=== PATIENT | female | born 1970 | race Caucasian/White ===

== ENCOUNTER 2017-04-30 09:14 | Emergency (ER) | payer BC, SELFPAY | END 2017-04-30 10:46 | disposition home or self-care (01) | PROVIDERS: Emergency Provider Nurse Practitioner; Family Provider Nurse Practitioner Family; Visit Provider Nurse Practitioner | DX: J10.1 Influenza due to other identified influenza virus with other respiratory manifestations (principal); J45.909 Unspecified asthma, uncomplicated; F17.210 Nicotine dependence, cigarettes, uncomplicated | CPT/HCPCS: 87804; 99201 ==

== ENCOUNTER → 2017-12-20 16:52 | Outpatient (CLI) | payer BC, SELFPAY ==
--- NOTE | 2017-12-20 16:55 | MM_ITS ---
MM Dig screening mamm BI w/CAD ORDERING PHYSICIAN : Monique Iraheta PATIENT AGE: 47 years GENDER: Female COMPARISON: Bilateral mammogram from April 2014, April 2015, right mammogram November 2015. Bilateral mammogram there are 2017 INDICATION: ITS.REASON: screening bilateral screening mammogram. No hormones. No new complaints. Previous benign excisional biopsy right breast. Family history noncontributory. Unremarkable. TECHNIQUE: Standard CC and MLO images were obtained. R2 CAD reviewed. FINDINGS: Minimal fibroglandular elements with relatively low breast bilaterally. No suspicious or dominant mass. No suspicious calcifications in either breast. RIGHT BREAST:Right breast appears stable no new areas of concern bilateral follow-up in one year LEFT BREAST:Minimal areas of density on the cc view at Central breast were present on 2017 and 2013 mammogram study. Reasonably Stable with no significant interval change.. These densities seem to dissipate on MLO viewAs well . Bilateral follow-up in not over one year recommended. IMPRESSION: No significant interval change. Bilateral follow-up in one year recommended BI-RADS Category: 2 Benign Finding(s) RECOMMENDED FOLLOW-UP: 1YR 1 YEAR FOLLOW-UP (A letter has been sent to the patient regarding results of the study.) .
== END ==
PROVIDERS: Family Provider Nurse Practitioner Family; PCP Nurse Practitioner Family; Visit Provider Nurse Practitioner Family
DX: Z12.31 Encounter for screening mammogram for malignant neoplasm of breast (principal)
CPT/HCPCS: 77067

== ENCOUNTER → 2018-08-01 15:00 | Outpatient (CLI) | payer BC, SELFPAY ==
--- NOTE | 2018-08-01 15:04 | US_ITS ---
US breast RT complete INDICATION: Lump under the right arm ORDERING PHYSICIAN: Alana Galindo PATIENT AGE: 47 years COMPARISON: None TECHNIQUE: Ultrasound is performed of the right axilla and breast FINDINGS: No sonographic abnormalities of the breast. There are few lymph nodes in the right axilla measuring up to 3 cm. No cyst apparent. IMPRESSION: Mildly prominent axillary lymph nodes. CT may be of further value for better quantification BI-RADS Category: 3 Probably Benign Finding Short Term Follow-up Suggest follow-up as clinically warranted. CT may be of further value for adenopathy for better quantification (A letter has been sent to the patient regarding results of the study.)
== END ==
PROVIDERS: PCP Nurse Practitioner Family; Visit Provider Nurse Practitioner Family
DX: R22.31 Localized swelling, mass and lump, right upper limb (principal)
CPT/HCPCS: 76641

== ENCOUNTER → 2018-08-08 13:20 | Outpatient (CLI) | payer BC, SELFPAY ==
[2018-08-08 13:46] LABS: Alanine Aminotransferase 37 U/L (12-78); Albumin Level 3.7 gm/dL (3.4-5.0); Albumin/Globulin Ratio 1.2 (1.1-1.8); Alkaline Phosphatase 58 U/L (46-116); Anion Gap 18.4 mEq/L (5-15); Aspartate Amino Transferase 13 U/L (15-37); Bilirubin,Total 0.7 mg/dL (0.2-1.0); Blood Urea Nitrogen 16 mg/dL (7-18); Calcium 8.5 mg/dL (8.5-10.1); Carbon Dioxide 19 mmol/L (21.0-32.0); Chloride 109 mmol/L (98-107); Creatinine,Serum 0.78 mg/dL (0.55-1.02); Estimated Glomerular Filt Rate 79 ml/min (>60); Free T4 (Free Thyroxine) 1.06 ng/dl (0.76-1.46); GFR (African American) 95 ML/MIN (>60); Globulin 3.2 gm/dl (1.3-3.2); Potassium 4.4 mmoL/L (3.5-5.1); Sodium 142 mmol/L (136-145); Thyroid Stimulating Hormone 1.74 uIU/ml (0.358-3.740); Total Protein,Serum 6.9 gm/dL (6.4-8.2)
[2018-08-08 13:52] LABS: Glucose 108 mg/dL (74-106)
[2018-08-08 14:18] LABS: Basophils % 0.5 % (0.1-2.0); Eosinophils # 0.2 K/mm3 (0.0-0.4); Eosinophils % 2.1 % (0.1-12.0); Hematocrit 42.1 % (37.0-47.0); Hemoglobin 14.1 g/dL (12.2-16.2); Lymphocytes # 2.2 K/mm3 (0.7-4.5); Lymphocytes % 28.1 % (10-50); Mean Corpuscular HGB Conc 33.5 g/dL (31.8-35.4); Mean Corpuscular Hemoglobin 29.1 pg (27.0-31.2); Mean Platelet Volume 8.7 fl (7.4-10.4); Monocytes # 0.3 K/mm3 (0.1-1.0); Monocytes % 4.3 % (1.7-9.3); Platelet Count 272 K/mm3 (142-424); Red Blood Count 4.85 M/mm3 (4.20-5.40); Red Cell Distribution Width 13.9 % (11.5-17.5); White Blood Count 7.8 K/mm3 (4.8-10.8)
[2018-08-08 14:51] LABS: Erythrocyte Sedimentation Rate 18 mm/hr (0-20)
[2018-08-12 15:11] LABS: 1,25-Dihydroxy, Vitamin D-2 <10 pg/mL (.)
[2018-08-13 14:26] LABS: 1,25 Dihydroxy Vitamin D 21 pg/mL (.); 1,25-Dihydroxy, Vitamin D-3 21 pg/mL (.)
== END ==
PROVIDERS: Visit Provider Nurse Practitioner Family
DX: R53.83 Other fatigue (principal)
CPT/HCPCS: 80053; 82652; 84439; 84443; 85025; 85651

== ENCOUNTER → 2018-08-30 10:16 | Outpatient (CLI) | payer BC, SELFPAY ==
[2018-08-30 12:12] LABS: Chol/HDL Ratio 4.8 (1-3.5); Cholesterol 163 mg/dL (140-200); HDL Cholesterol 34 mg/dL (29-89); LDL Cholesterol 108 mg/dL (0-130); Triglycerides 106 mg/dL (30-200); VLDL Cholesterol 21 mg/dL (0-40)
[2018-08-30 12:38] LABS: Hemoglobin A1C 5.8 % (0.0-7.0)
== END ==
PROVIDERS: Visit Provider Nurse Practitioner Family
DX: R73.09 Other abnormal glucose (principal)
CPT/HCPCS: 36415; 80061; 83036

== ENCOUNTER → 2018-09-11 15:26 | Outpatient (CLI) | payer BC, SELFPAY ==
--- NOTE | 2018-09-11 15:41 | CT_ITS ---
CT chest wo con HISTORY: Enlarged lymph nodes. Axillary adenopathy noted on ultrasound ITS.REASON: recommended on breast u/s results ORDERING PHYSICIAN: Alana Galindo APRN PATIENT AGE: 47 years COMPARISON: None Technique: Axial images obtained. Sagittal, and coronal reformatted images are also generated and reviewed. All CT scans at the facility use one or more dose reduction, viz: automated exposure control, ma/kV adjustment per patient size (including targeted exams where dose is matched to indication, i.e. head), or iterative reconstruction technique. FINDINGS: There is been prior right thyroidectomy. Small amount of the mid and the axillary region on both sides. Previously noted enlarged nodes of the right axilla are no longer apparent. There are few small nodes within the mediastinum there is mild stranding of the anterior mediastinal fat nonspecific and could be related to some residual thymic tissue. There is minimal thickening of the pericardium anteriorly and inferiorly. Normal heart size. No coronary artery calcifications are apparent. There are few small mediastinal and hilar lymph nodes some of which contain calcium. Calcified granuloma is present in the left upper lobe. No suspicious pulmonary nodules. No lobar consolidation or collapse. No central obstructing lesion. Upper abdominal images show a 1.7 cm left adrenal nodule isodense which may be related to an adenoma. IMPRESSION: 1. No acute finding. 2. Scattered small nodes in the axillae and mediastinum. No enlarged lymph nodes are evident. 3. Probable left adrenal adenoma. 4. Mild thickening of the pericardium suggesting trace pericardial effusion
== END ==
PROVIDERS: PCP Nurse Practitioner Family; Visit Provider Nurse Practitioner Family
DX: R59.0 Localized enlarged lymph nodes (principal)
CPT/HCPCS: 71250

== ENCOUNTER → 2018-10-13 09:46 | Outpatient (CLI) | payer BC, SELFPAY ==
--- NOTE | 2018-10-13 09:48 | CT_ITS ---
CT abdomen wo/w con CLINICAL INDICATION: Adrenal nodule on the left, indeterminate left adrenal nodule, possible adenoma ITS.REASON: adrenal adenoma seen on CT ORDERING PHYSICIAN: Alana Galindo APRN PATIENT AGE: 48 years COMPARISON: None TECHNIQUE: Axial images obtained without and with contrast with sagittal and coronal reformats. All CT scans at the facility use one or more dose reduction, viz: automated exposure control, ma/kV adjustment per patient size (including targeted exams where dose is matched to indication, i.e. head), or iterative reconstruction technique. PROCEDURE: Oral Contrast: None IV Contrast: 75 mL's Optiray 350. FINDINGS: EXAM is performed with adrenal protocol without and with contrast and with delayed imaging for the washout images. FINDINGS: In the lung bases there is some minimal subpleural nodularity in the right lower lobe not readily apparent on the previous exam and nonspecific. Mild thickening of the pericardium There is a 15 mm left adrenal nodule. Unenhanced density is approximately -2 Hounsfield units. Immediate post enhanced density is 33 Hounsfield units. 15 minute delayed washout density is 3 Hounsfield units.. These findings are consistent with an adenoma pattern.. The liver, spleen, right adrenal gland, kidneys, and pancreas have an unremarkable appearance. IMPRESSION: 15-mm left adrenal nodule with enhancement characteristics consistent with an adenoma.
== END ==
PROVIDERS: PCP Nurse Practitioner Family; Visit Provider Nurse Practitioner Family
DX: D35.00 Benign neoplasm of unspecified adrenal gland (principal)
CPT/HCPCS: 74170; Q9967

== ENCOUNTER → 2019-02-04 16:50 | Outpatient (CLI) | payer BC, SELFPAY | PROVIDERS: Visit Provider Physician Assistant | DX: N39.0 Urinary tract infection, site not specified (principal) | CPT/HCPCS: 87086 ==

== ENCOUNTER → 2019-06-01 17:16 | Outpatient (CLI) | payer BC, SELFPAY ==
--- NOTE | 2019-06-01 17:32 | XR_ITS ---
PROCEDURE: XR LUMBAR SPINE MIN 4V CLINICAL INDICATION: back pain COMPARISON: No exams were available for comparison FINDINGS: No fracture or dislocation. No lytic or blastic change. Mild degenerative disc disease from L1-S1. There is slight decrease in the disc spaces with small anterior osteophytes at L1-L3 L4 and L5. IMPRESSION: Mild degenerative changes, no acute finding. Dictated by: Juan Manuel Murillo MD 06/01/2019 19:00 Electronically signed by Juan Manuel Murillo MD in [place] 06/01/2019 19:00
== END ==
PROVIDERS: PCP Nurse Practitioner Family; Visit Provider Specialist
DX: M54.9 Dorsalgia, unspecified (principal); R25.1 Tremor, unspecified
CPT/HCPCS: 72110

== ENCOUNTER → 2019-06-02 16:31 | Outpatient (CLI) | payer BC, SELFPAY ==
[2019-06-02 20:23] LABS: Free T4 (Free Thyroxine) 1.13 ng/dl (0.76-1.46)
== END ==
PROVIDERS: Visit Provider Otolaryngology
DX: E03.9 Hypothyroidism, unspecified (principal)
CPT/HCPCS: 36415; 84439; 84443

== ENCOUNTER → 2019-06-30 12:49 | Outpatient (CLI) | payer BC, SELFPAY ==
--- NOTE | 2019-06-30 12:49 | US_ITS ---
PROCEDURE: US EXTREMITY RT LIMITED CLINICAL INDICATION: rt axillary swollen lymphnode COMPARISON: BREASTRT US breast RT complete from 08/01/2018 FINDINGS: Survey is performed of the right axilla demonstrating at least 3 lymph nodes the largest at approximately 3 cm. The cortex is not thickened measuring up to 3 mm. No abnormal fluid collections. Palpable area the right axilla corresponds to adipose tissue. IMPRESSION: Small nodes are once again noted in the right axilla not significantly changed from 08/01/2018. Dictated by: Juan Manuel Murillo MD 06/30/2019 18:07 Electronically signed by Juan Manuel Murillo MD in [facility] 06/30/2019 18:07
--- NOTE | 2019-06-30 12:49 | US_ITS ---
PROCEDURE: US BIOPSY GUIDANCE CLINICAL INDICATION: Rt axillary painful/swollen lymph node COMPARISON: US EXTREMITY RT LIMITED from 06/30/2019 TECHNIQUE: Pre biopsy ultrasound demonstrated a few small nodes in the axilla. At least 1 node measured up to 4 x 3 cm. This however was very deep in the axilla. This was the target for the FNA Following obtaining informed consent, using aseptic technique and local anesthesia with buffered lidocaine, fine-needle aspiration was performed of the nodule of interest using sonographic guidance. One passes were made into the nodule with a 21-gauge needle. This needle did not appear to be long enough therefore, a 20 gauge spinal needle was utilized for 2 additional passes into the area of suspected lymph node. The patient tolerated the procedure well without evidence of immediate complication. Specimen was put in cytology and RPMI. Specimen was given to cytology. FINDINGS: CYTOLOGY: Negative for malignancy. Negative for lymph node tissue. IMPRESSION: Uneventful ultrasound-guided FNA of the right axilla. Negative for malignancy. What was felt to be a a small lymph node with fatty hilum was targeted for the FNA however, no lymph node tissue was seen on the FNA. This was the area of patient's reported pain and tenderness. The patient tolerated the procedure well without evidence of immediate complications and left the ultrasound suite in stable condition. Dictated by: Juan Manuel Murillo MD 07/04/2019 08:22 Electronically signed by Juan Manuel Murillo MD in [facility] 07/04/2019 08:22
== END ==
PROVIDERS: PCP Nurse Practitioner Family; Visit Provider Surgery
DX: R59.9 Enlarged lymph nodes, unspecified (principal); M79.621 Pain in right upper arm; M79.89 Other specified soft tissue disorders
CPT/HCPCS: 10005; 76882; 76942

== ENCOUNTER 2019-07-14 17:00 | Outpatient (RCR) | payer BC, SELFPAY ==
--- NOTE | 2019-06-08 18:13 | HMH.PTOPEV ---
PT Outpatient Evaluation Rehab PT Outpatient Evaluation Start: 06/08/19 17:03 Freq: Status: Active Protocol: Document 06/08/19 17:03 NATEMORALES (Rec: 06/08/19 18:13 NIKITAMIESHA [id number]) Electronically Signed By Perry Ricci, PROSPER 06/08/19 17:03 Outpatient Therapy Subjective History Subjective History This is the initial Physical Therapy evaluation for Kallie Barroso. Pt is a 48 y/o female referred to PT for c/o LBP and RLE pain and paresthesia. Pt reports she has had chronic LBP since 1990 when she was in the . Pt reports she fell backwards and bruised L3-L4 . Pt reprots she has had chronic intermittant back pain since then. Pt rpeorts this bout began ~ Feb 2019 w/ insidious onset. Pt reports pain has been steadily increasing since Feb, with worsening pain in RLE. Pt reprots pain and burning into lateral R knee, and tingling and numbness in R lateral toes . Chief Complaint Pain,Paresthesia Symptom Type Ache,Throb,Sharp,Dull,Stabbing ,Burning,Numbness,Tingling, Shooting Symptoms Relieved By Rest/Positioning,Heat,Ice,OTC Meds,Prescription Meds Symptoms Aggravated By Sitting,Standing,Bending/ Stooping,Physical Activity, Twisting,Walking Prior Functional Limitations None Current Functional Limitations Lifting,Housework,Driving, Sleeping,Standing,Sitting, Recreation Activity,Walking, Bending/Stooping Symptom Description Constant but Variable Level of pain today (0-10) 5 Pain scale - at its best (0-10) 8 Pain scale - at its worst (0-10) 3 Lumbopelvic Eval Palapation tenderness right lumbar spinal tenderness Yes paraspinal tenderness Yes Lumbar/Sacral Palpation Findings Tenderness,Muscle Guarding Accessory Movement L3 right L4 right L5 right S1 right Range of Motion Lumbar Spine Active Flexion Range of 60 w/ pain Motion (degrees) Lumba
== END 2019-07-14 18:00 | disposition home or self-care (01) ==
LOC: PT 17:00
PROVIDERS: PCP Nurse Practitioner Family; Visit Provider Specialist
DX: M54.41 Lumbago with sciatica, right side (principal)
CPT/HCPCS: 97010; 97014; 97110; 97163; G0283

== ENCOUNTER 2020-02-22 18:27 | Emergency (ER) | payer BC, SELFPAY ==
[2020-02-22 18:42] VITALS: BP 125/89; PULSE 76; RESP 16; TEMP 37.2; O2SAT 98; BMI 42.7
--- NOTE | 2020-02-22 19:02 | HMH.EDUTC ---
[facility] Disposition Clinical Impression: Acute bronchitis Qualifiers: Bronchitis organism: unspecified organism Qualified Code(s): J20.9 - Acute bronchitis, unspecified Pharyngitis Qualifiers: Pharyngitis/tonsillitis etiology: unspecified etiology Qualified Code(s): J02.9 - Acute pharyngitis, unspecified Disposition: Home, Self-Care Condition on Discharge: Good Instructions: DI for Acute Bronchitis Additional Instructions: Drink plenty of fluids. Take tylenol or ibuprofen for pain or fever. Take the medications as directed. Follow up with your regular doctor. GO TO THE ER FOR ANY WORSENING SYMPTOMS FOLLOW THE DIRECTIONS ON THE COVID-19 HAND OUT THAT WE GAVE YOU REGARDING SELF-ISOLATION UNTIL YOU KNOW YOUR COVID-19 RESULTS Prescriptions: Benzonatate [Tessalon Perle 100mg Cap] 100 mg PO TIDP PRN #30 cap PRN Reason: Cough Transmission Status: Received by [facility] Azithromycin [Z-Yobani 250mg Tab*] 250 mg PO UD DOSE PK #6 tab Transmission Status: Received by [facility] Referrals: Gasper Pierre [Primary Care Provider] - Forms: Work/School Release Time of Disposition: 19:25 Medical Decision Making - Medical Records Medical records reviewed: No: I reviewed the patient's medical records. - Galileo Inquiry Pt receiving controlled substance: No Vital Signs: 02/22/20 18:42 02/22/20 19:36 Temperature 98.9 F 98.9 F Temperature Source Oral Oral Pulse Rate 76 Pulse Rate [Radial] 76 Respiratory Rate 16 16 Blood Pressure 125/89 Blood Pressure [Right Arm] 125/89 Blood Pressure Mean [Right Arm] 101 Blood Pressure Source Automatic Cuff Blood Pressure Source [Right Arm] Automatic Cuff Blood Pressure Position Sitting Blood Pressure Position [Right Arm] Sitting 02 Sat by Pulse Oximetry 98 Oxygen Delivery Method Room Air Room Air - Lab Data Lab results reviewed: Yes: I reviewed the patient's lab results. Lab Results 02/22/20 19:06: Strep Scn Rapid Clinic Negative Orders (Tests/Meds): ORDERS Category Date Time Status Covid-19 Nasal PCR Sendout Samuel Routine Lab 02/22/20 18:46 Received Strep Screen Confirmation Stat Micro 02/22/20 19:06 Received [facility] HPI - General Stated complaint: sore throat,Cough,pain all over Time Seen by Provider: 02/22/20 19:02 Mode of Arrival: Ambulatory Source of Information: Patient Limitations: No Limitations Description of Symptoms (Recalled from Triage Doc. by RN): SORE THROAT, COUGH, BODY ACHES HEENT Symptoms (Recalled from RN notes): Yes Resp Symptoms (Recalled from RN notes): No Skin Symptoms (Recalled from RN notes): No MS Symptoms (Recalled from RN notes): No Functional Status (Recalled from RN notes): WNL - History of Present Illness Provider Complaint: She c/o sore throat and bilateral ear pain for the past 2 days. She denies any known exposure to covid. But, she works at the [employer] in [place], [place]. - Related Data Home Medications Medication Instructions Recorded Confirmed levothyroxine 125 mcg tablet 125 mcg PO DAILY 90 Days #90 08/05/17 02/19/20 aspirin 81 mg chewable tablet 81 mg PO DAILY 01/30/18 02/19/20 Topiramate 250 mg PO QHS 05/22/19 02/19/20 metformin 1,000 mg tablet 1,000 mg PO BID 12/18/19 02/19/20 tramadol 50 mg tablet 50 mg PO DAILY 12/18/19 02/19/20 Previous Rx's Medication Instructions Recorded tizanidine 2 mg capsule 4 mg PO QHS #60 cap 09/17/19 escitalopram oxalate 20 mg tablet 20 mg PO DAILY #90 tab 02/19/20 hydroxyzine pamoate 25 mg capsule 25 mg PO TID PRN #180 cap 02/19/20 Azithromycin [Z-Yobani 250mg Tab*] 250 mg PO UD DOSE PK #6 tab 02/22/20 Benzonatate [Tessalon Perle 100mg 100 mg PO TIDP PRN #30 cap 02/22/20 Cap] Allergies Allergy/AdvReac Type Severity Reaction Status Date / Time codeine Allergy Intermediate I-ITCHING Verified 09/10/19 14:08 oxycodone [From Percocet] Allergy Intermediate I-ITCHING Verified 09/10/19 14:08 propoxyphene Allergy
[2020-02-22 19:17] LABS: UTC Strep Screen (Rapid) Negative (Negative)
[2020-02-22 19:36] VITALS: BP 125/89; PULSE 76; RESP 16; TEMP 37.2; O2SAT 98
== END 2020-02-22 19:37 | disposition home or self-care (01) ==
PROVIDERS: Emergency Provider Nurse Practitioner Family; PCP Family Medicine
DX: J20.9 Acute bronchitis, unspecified (principal); J02.9 Acute pharyngitis, unspecified; Z20.828 Contact with and (suspected) exposure to other viral communicable diseases; E11.9 Type 2 diabetes mellitus without complications; Z79.84 Long term (current) use of oral hypoglycemic drugs; F41.9 Anxiety disorder, unspecified; G43.709 Chronic migraine without aura, not intractable, without status migrainosus; Z87.891 Personal history of nicotine dependence; Z79.899 Other long term (current) drug therapy
CPT/HCPCS: 87880; 99202; U0003; U0004

== ENCOUNTER → 2020-06-13 14:08 | Outpatient (CLI) | payer BC, SELFPAY ==
[2020-06-13 18:37] LABS: Vitamin B12 225 pg/mL (239-931)
[2020-06-22 19:25] LABS: 1,25 Dihydroxy Vitamin D 20 pg/mL (.); 1,25-Dihydroxy, Vitamin D-2 <10 pg/mL (.); 1,25-Dihydroxy, Vitamin D-3 20 pg/mL (.)
== END ==
PROVIDERS: Visit Provider Nurse Practitioner Psychiatric/Mental Health
DX: E53.8 Deficiency of other specified B group vitamins (principal); Z68.41 Body mass index [BMI] 40.0-44.9, adult
CPT/HCPCS: 36415; 82607; 82652

== ENCOUNTER 2020-06-27 09:33 | Emergency (ER) | payer BC, SELFPAY ==
[2020-06-27 09:50] VITALS: BP 130/79; PULSE 87; RESP 14; TEMP 37.3; O2SAT 99; BMI 41.8
--- NOTE | 2020-06-27 10:24 | HMH.EDUTC ---
[facility] Dis[place] Clinical Impression: Otitis media Qualifiers: Otitis media type: suppurative Chronicity: acute Laterality: bilateral Recurrence: non-recurrent Spontaneous tympanic membrane rupture: without spontaneous rupture Qualified Code(s): H66.003 - Acute suppurative otitis media without spontaneous rupture of ear drum, bilateral Pharyngitis Qualifiers: Pharyngitis/tonsillitis etiology: unspecified etiology Qualified Code(s): J02.9 - Acute pharyngitis, unspecified Disposition: Home, Self-Care Condition on Discharge: Good Instructions: Vertigo, Middle Ear Infection, Preventing the Spread of Coronavirus Discharge Instructions Additional Instructions: Drink plenty of fluids. Take tylenol for pain or fever. Return if you begin to have difficulty breathing. Follow up with your regular doctor. GO TO THE ER FOR ANY WORSENING SYMPTOMS Prescriptions: predniSONE [Prednisone 20mg Tab] 20 mg PO BID 4 Days #8 tab Transmission Status: Received by [facility] Azithromycin [Z-Yobani 250mg Tab*] 250 mg PO UD DOSE PK #6 tab Transmission Status: Received by [facility] Referrals: Gasper Pierre [Primary Care Provider] - Forms: Work/School Release Time of Disposition: 10:33 Medical Decision Making - Medical Records Medical records reviewed: No: I reviewed the patient's medical records. - Galileo Inquiry Pt receiving controlled substance: No Vital Signs: 06/27/20 09:50 06/27/20 10:35 Temperature 99.2 F 99.2 F Temperature Source Oral Pulse Rate 87 Pulse Rate [Right Brachial] 87 Respiratory Rate 14 14 Blood Pressure 130/79 Blood Pressure [Right Arm] 130/79 Blood Pressure Mean [Right Arm] 96 Blood Pressure Source [Right Arm] Automatic Cuff Blood Pressure Position [Right Arm] Sitting 02 Sat by Pulse Oximetry 99 Oxygen Delivery Method Room Air Orders (Tests/Meds): ORDERS Category Date Time Status Covid-19 Nasal PCR ([facility]) Routine Lab 06/27/20 10:30 Received [facility] HPI - General Stated complaint: dizzy,sore throat,headache Time Seen by Provider: 06/27/20 10:24 Mode of Arrival: Ambulatory Source of Information: Patient Limitations: No Limitations Description of Symptoms (Recalled from Triage Doc. by RN): PATEINT C/O DIZZINESS, SORE THROAT, HEADACHE, AND EAR PAIN HEENT Symptoms (Recalled from RN notes): Yes Resp Symptoms (Recalled from RN notes): No Skin Symptoms (Recalled from RN notes): No MS Symptoms (Recalled from RN notes): No Functional Status (Recalled from RN notes): WNL - History of Present Illness Provider Complaint: She c/o 1 day of bilateral ear pain and dizziness. She has had a head ache. She denies any known exposure to Covid-19. - Related Data Home Medications Medication Instructions Recorded Confirmed levothyroxine 125 mcg tablet 125 mcg PO DAILY 90 Days #90 08/05/17 02/19/20 aspirin 81 mg chewable tablet 81 mg PO DAILY 01/30/18 02/19/20 Topiramate 250 mg PO QHS 05/22/19 02/19/20 metformin 1,000 mg tablet 1,000 mg PO BID 12/18/19 02/19/20 tramadol 50 mg tablet 50 mg PO DAILY 12/18/19 02/19/20 Previous Rx's Medication Instructions Recorded tizanidine 2 mg capsule 4 mg PO QHS #60 cap 09/17/19 Azithromycin [Z-Yobani 250mg Tab*] 250 mg PO UD DOSE PK #6 tab 02/22/20 Benzonatate [Tessalon Perle 100mg 100 mg PO TIDP PRN #30 cap 02/22/20 Cap] buspirone 10 mg tablet 10 mg PO BID #60 tab 06/13/20 escitalopram oxalate 20 mg tablet 20 mg PO DAILY #90 tab 06/13/20 hydroxyzine pamoate 25 mg capsule 25 mg PO TID PRN #180 cap 06/13/20 Azithromycin [Z-Yobani 250mg Tab*] 250 mg PO UD DOSE PK #6 tab 06/27/20 predniSONE [Prednisone 20mg 20 mg PO BID 4 Days #8 tab 06/27/20 Tab] Allergies Allergy/AdvReac Type Severity Reaction Status Date / Time codeine Allergy Intermediate I-ITCHING Verified 06/13/20 13:42 oxycodone [From Percocet] Allergy Intermediate I-ITCHING Verified 06/13/20 13:42 propoxyphene Allergy Intermediate I-ITCHI
[2020-06-27 10:35] VITALS: BP 130/79; PULSE 87; RESP 14; TEMP 37.3; O2SAT 99
== END 2020-06-27 10:41 | disposition home or self-care (01) ==
PROVIDERS: Emergency Provider Nurse Practitioner Family; PCP Family Medicine
DX: H66.003 Acute suppurative otitis media without spontaneous rupture of ear drum, bilateral (principal); J02.9 Acute pharyngitis, unspecified; F41.9 Anxiety disorder, unspecified; G43.709 Chronic migraine without aura, not intractable, without status migrainosus; Z87.891 Personal history of nicotine dependence; Z88.5 Allergy status to narcotic agent; Z79.899 Other long term (current) drug therapy
CPT/HCPCS: 99202; G0463; U0003

== ENCOUNTER → 2020-09-02 17:41 | Outpatient (CLI) | payer BC, SELFPAY ==
[2020-09-02 19:07] LABS: Coronavirus 19 IgG Antibody Negative (Negative); Coronavirus 19 IgM Antibody Negative (Negative)
== END ==
PROVIDERS: Visit Provider Internal Medicine Gastroenterology
DX: Z01.812 Encounter for preprocedural laboratory examination (principal); Z11.52 Encounter for screening for COVID-19; Z12.11 Encounter for screening for malignant neoplasm of colon
CPT/HCPCS: 36415; 86328

== ENCOUNTER 2020-09-05 09:41 | Day surgery (SDC) | payer BC, SELFPAY ==
[2020-09-01 14:00] VITALS: BMI 42.1
[2020-09-05] VITALS (7 sets, daily range): BP systolic 113–140; BP diastolic 65–105; PULSE 60–78; RESP 18; TEMP 36.3–37; O2SAT 94–100
[2020-09-05 10:11] LABS: POC Glucose,Bedside 104 (70-110)
--- NOTE | 2020-09-05 11:03 | P.PCN_ITS ---
[facility] Procedure Note Procedure Note:: Colonoscopy Procedure Report: Colonoscopy with cold snare polypectomy and hemorrhoid band ligation Endoscopist: Bebo Bradley II, MD Referring physician: Gasper Pierre MD Date of Procedure: September 05, 2020 Equipment: Olympus 190 variable stiffness pediatric colonoscope Sedation: MAC sedation Indication: Mrs. Barroso is a 49-year-old female who is here for diagnostic colonoscopy secondary to rectal bleeding that has become frequent over the last couple of months. This occurs with every bowel movement and is blood going into the commode. She also has anorectal pain/tearing sensation. She was told that she had some hemorrhoidal tags by her rental sales agent. She has chronic right upper quadrant abdominal pain since her cholecystectomy 12 to 15 years ago. The patient did have a colonoscopy 7 to 8 years ago (Dr. Mark Dubose in [place]) which was normal. She was placed on Linzess for her pain but this resulted in diarrhea. Her clerk checker stopped this. The patient reports no bloating or gassiness. She has had no change in bowel habits or weight loss. She does report regular bowel function. She reports no family history of colon cancer. Procedure: Prior to the procedure, a history and physical exam was performed, and patient's medications and allergies were reviewed. The risks, benefits and alternatives of the sedation and procedure were discussed with the patient. All questions were answered and informed consent was obtained. The patient was brought to the procedure room. Patient identification and proposed procedure were verified by the physician and the nurse. The patient was placed in a left lateral decubitus position and the scope was passed under direct vision. Throughout the procedure, the patient's blood pressure, pulse, and oxygen saturations were monitored continuously. The colonoscopy was accomplished without difficulty. The patient tolerated the procedure well. Findings: On digital rectal examination there was normal to increased anorectal sphincter tone. There were no external hemorrhoids. There was an anterior midline anal fissure with an associated skin tag. The anal rectal sphincter was dilated manually. The colonoscope was introduced through the anal canal to the rectum and advanced to the cecum. The ileocecal valve and appendiceal orifice were identified. The scope was advanced a short distance into the ileum which appeared grossly normal. The scope was then withdrawn into the colon. The cecum, ascending, transverse, descending and sigmoid colon were grossly normal. There was a diminutive 4 mm polyp in the rectum removed via cold snare polypectomy. There were no mucosal abnormalities identified. Upon retroflexion within the rectum there were grade 2 internal hemorrhoids. 3 columns of hemorrhoids were banded using 3 bands with excellent ligation effect. The preparation was excellent throughout with [place] Preparation Score of 9. The cecal time was 12 minutes. Impression: 1. Diminutive rectal polyp (4 mm) 2. Grade 2 internal hemorrhoids status post band ligation x3 3. Anterior midline anal fissure with associated skin tag Plan: I would encourage a fiber bowel regimen (MiraLAX plus Konsyl) on a long-term daily maintenance basis. 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 I will follow up the polyp histology and recommend repeat surveillance colonoscopy in 7 to 10 years based upon the pathology.
--- NOTE | 2020-09-05 17:10 | HMH.ANESCL ---
[facility] Anesthesia Checklist - Patient Identification Patient Identification: Arm Band - Structural Data Admitted From: Home Planned Operative Procedure/s: Colonoscopy Consent for Planned Operative Procedure(s) Verified: Yes Verified Documents: Surgical Consent, History and Physical - NPO Status Verified Time NPO: 00:00 - Airway Assessment C-Spine Mobility Assessed: Yes TMJ Mobility Assessed: Yes Dentition: Good Dentition - Neurological Assessment Level of Consciousness: Awake, Alert - Anesthesia Plan Anesthesia Risk discussed: Yes Anesthesia Plan: Verified ASA Class: III Anesthesia Type: MAC [facility] History Medical History: Reports:: Anxiety, Diabetes Mellitus Type 2, Migraine Denies:: Cancer, Diabetes Mellitus Type 1, Internal Pacemaker, MRSA, Seizures *Have you ever received a pneumonia vaccine?: No *Have you received a flu vaccine this season?: Yes Other Medical History: Reports: Thyroid Disease, Other Anesthesia experience/problems:: None Laterality Cases: Right: Arthroscopy Knee, Bilateral: Tonsillectomy, Other Other Surgeries: Yes: Cholecystectomy, Colonoscopy, Hysterectomy-Partial, Sinus Surgery, Thyroidectomy, Tubal Ligation. No: Pacemaker Amputation: No Fractures: Yes (ANKLE) - *Social History Last grade of school completed: High school graduate Smoking Status: Former smoker # Packs/Day (cigarettes): 1 #Yrs smoked (if former smoker): 20 Alcohol Intake: current Alcohol Intake Frequency:: a few times a month Substance Use Type: denies use *Occupational Status:: employed Housing: house Household Members: spouse *Travel in the last 8 weeks: None - Psychiatric History Pschychiatric History:: Reports:: Anxiety Family Hx:: Cancer, Hypertension, Coronary Artery Disease
== END 2020-09-05 12:21 | disposition home or self-care (01) ==
LOC: OUTP 09:44
PROVIDERS: PCP Family Medicine; Visit Provider Internal Medicine Gastroenterology
PROC: 0DJD8ZZ Inspection of Lower Intestinal Tract, Via Natural or Artificial Opening Endoscopic (ICD-10-PCS; CPT 45378; principal; 2020-09-05 11:00)
DX: K62.1 Rectal polyp; K64.1 Second degree hemorrhoids; K64.4 Residual hemorrhoidal skin tags; K60.2 Anal fissure, unspecified; F41.9 Anxiety disorder, unspecified; E11.9 Type 2 diabetes mellitus without complications; G43.909 Migraine, unspecified, not intractable, without status migrainosus; E07.9 Disorder of thyroid, unspecified
CPT/HCPCS: 45385; 45398; 82962

== ENCOUNTER 2020-10-31 17:22 | Emergency (ER) | payer BC, SELFPAY ==
[2020-10-31 18:47] VITALS: BP 131/80; PULSE 81; RESP 18; TEMP 36.8; O2SAT 93; BMI 42.0
--- NOTE | 2020-10-31 18:52 | XR_ITS ---
PROCEDURE INFORMATION: Exam: XR Chest Exam date and time: 10/31/2020 6:52 PM Age: 50 years old Clinical indication: Shortness of breath; Patient HX: Soa---. Former smoker, quit 3 yr ago; Additional info: Pleuritic pain TECHNIQUE: Imaging protocol: XR of the chest. Views: 2 views. Total images: 2 COMPARISON: CR XR CHEST 2V 08/06/2019 9:29 AM FINDINGS: Lungs: Granulomatous calcifications in the left upper lobe and AP window again noted. Normal pulmonary expansion. Pulmonary vasculature grossly normal. No gross pulmonary infiltrates. Pleural spaces: No pleural effusion. No pneumothorax. Heart/Mediastinum: Heart size normal. No tracheal/mediastinal shift. Vasculature: Mild aortic ectasia/tortuosity. Bones/joints: No acute osseous abnormalities are identified. IMPRESSION: No acute thoracic process. No significant change from 08/06/2019.
--- NOTE | 2020-10-31 19:00 | HMH.EDUTC ---
[facility] [place] Impression: Acute bronchitis Qualifiers: Bronchitis organism: unspecified organism Qualified Code(s): J20.9 - Acute bronchitis, unspecified Disposition: Home, Self-Care Condition on Discharge: Good Instructions: DI for Acute Bronchitis Additional Instructions: Drink plenty of fluids. Take tylenol or ibuprofen for pain or fever. Take the medications as directed. Follow up with your regular doctor. GO TO THE ER FOR ANY WORSENING SYMPTOMS Don't start the oral steroids until tomorrow, since you had the shot here today. The cough medication (promethazine dm) will make you drowsy, so don't drive or operate heavy machinery after taking it. Prescriptions: Promethazine/Dextromethorphan [Promethazine-Dm Syrup] 5 ml PO Q6HP PRN #240 syrup PRN Reason: Cough Transmission Status: Received by [facility] methylPREDNISolone [Medrol] 4 mg PO DIRECTED 6 Days #21 tab.ds.pk Transmission Status: Received by [facility] Cefdinir [Omnicef 300mg Capsule] 300 mg PO BID #20 cap Transmission Status: Received by [facility] Referrals: Gasper Pierre [Primary Care Provider] - Forms: Work/School Release Time of Disposition: 19:54 Medical Decision Making - Medical Records Medical records reviewed: No: I reviewed the patient's medical records. - Galileo Inquiry Pt receiving controlled substance: No Vital Signs: 10/31/20 18:47 10/31/20 19:30 10/31/20 20:36 Temperature 98.2 F 98 F Temperature Source Oral Pulse Rate 78 79 Pulse Rate [Right Brachial] 81 Respiratory Rate 18 18 Blood Pressure 127/78 Blood Pressure [Right Arm] 131/80 Blood Pressure Mean [Right Arm] 97 Blood Pressure Source [Right Arm] Automatic Cuff 02 Sat by Pulse Oximetry 93 L Oxygen Delivery Method Room Air Orders (Tests/Meds): ED MEDICATIONS Discontinued Medications Generic Name Dose Route Start Last Admin Trade Name Freq PRN Reason Stop Dose Admin Albuterol/Ipratropium 1 puff 10/31/20 18:52 10/31/20 19:25 Combivent 20mcg/100mcg Respimat Inhaler IH 10/31/20 18:53 1 puff ONCE ONE Administration Albuterol/Ipratropium 3 ml 10/31/20 18:52 10/31/20 19:25 Ipratropium/Albuterol 3 Ml Neb IH 10/31/20 18:53 3 ml ONCE ONE Administration Ceftriaxone Sodium 1 gm 10/31/20 20:08 10/31/20 20:36 Ceftriaxone 1gm Vial IM 10/31/20 20:09 1 gm ONCE ONE Administration Protocol Lidocaine HCl 0 ml 10/31/20 20:08 10/31/20 20:17 Lidocaine 1% 5ml Pf Vial IM 10/31/20 20:09 2.5 ml ONCE ONE Administration Methylprednisolone Sodium Succinate 125 mg 10/31/20 20:08 10/31/20 20:17 Methylprednisolone Sod Succ 125mg Vial IM 10/31/20 20:09 125 mg ONCE ONE Administration Miscellaneous 1 unit 10/31/20 18:52 10/31/20 19:24 Aerochamber/Optihaler MC 10/31/20 18:53 1 unit ONCE ONE Administration - Radiology Data #1 Image(s): Chest Image Reviewed: Yes I reviewed the patient's radiology image, Yes I have reviewed radiologist's interpretation Preliminary Findings: No Infiltrates Seen PROCEDURE INFORMATION: Exam: XR Chest Exam date and time: 10/31/2020 6:52 PM Age: 50 years old Clinical indication: Shortness of breath; Patient HX: Soa---. Former smoker, quit 3 yr ago; Additional info: Pleuritic pain TECHNIQUE: Imaging protocol: XR of the chest. Views: 2 views. Total images: 2 COMPARISON: CR XR CHEST 2V 08/06/2019 9:29 AM FINDINGS: Lungs: Granulomatous calcifications in the left upper lobe and AP window again noted. Normal pulmonary expansion. Pulmonary vasculature grossly normal. No gross pulmonary infiltrates. Pleural spaces: No pleural effusion. No pneumothorax. Heart/Mediastinum: Heart size normal. No tracheal/mediastinal shift. Vasculature: Mild aortic ectasia/tortuosity. Bones/joints: No acute osseous abnormalities are identified. IMPRESSION: No acute thora
[2020-10-31 19:30] VITALS: PULSE 69; PULSE 78
[2020-10-31 20:36] VITALS: BP 127/78; PULSE 79; RESP 18; TEMP 36.6
== END 2020-10-31 20:36 | disposition home or self-care (01) ==
PROVIDERS: Emergency Provider Nurse Practitioner Family; PCP Family Medicine
DX: J20.9 Acute bronchitis, unspecified (principal); E11.9 Type 2 diabetes mellitus without complications; E78.5 Hyperlipidemia, unspecified; Z87.891 Personal history of nicotine dependence; Z79.899 Other long term (current) drug therapy
CPT/HCPCS: 71046; 96372; 99202; G0463

== ENCOUNTER 2021-01-14 18:13 | Emergency (ER) | payer BC, SELFPAY ==
[2021-01-14 18:15] VITALS: BP 96/71; PULSE 75; RESP 18; TEMP 36.8; O2SAT 98; BMI 45.9
--- NOTE | 2021-01-14 18:28 | CT_ITS ---
PROCEDURE INFORMATION: Exam: CT Cervical Spine Without Contrast Exam date and time: 01/14/2021 6:28 PM Age: 50 years old Clinical indication: Injury or trauma; Fall; Blunt trauma; Injury date: 01/14/2021; Injury details: Fell and hit back of head neck pain and headache now TECHNIQUE: Imaging protocol: Computed tomography images of the cervical spine without contrast. Radiation optimization: All CT scans at this facility use at least one of these dose optimization techniques: automated exposure control; mA and/or kV adjustment per patient size (includes targeted exams where dose is matched to clinical indication); or iterative reconstruction. COMPARISON: CT HEAD/BRAIN WO CON 01/14/2021 6:39 PM FINDINGS: Bones/joints: No acute fracture. Normal alignment. Discs/Spinal canal/Neural foramina: No significant disc protrusion. No severe spinal canal stenosis. No significant neural foraminal narrowing. Lungs: Lung apices are normal. Soft tissues: Unremarkable. IMPRESSION: No acute findings.
--- NOTE | 2021-01-14 18:28 | CT_ITS ---
PROCEDURE INFORMATION: Exam: CT Head Without Contrast Exam date and time: 01/14/2021 6:28 PM Age: 50 years old Clinical indication: Injury or trauma; Fall; Blunt trauma (contusions or hematomas); Without loss of consciousness; Injury date: 01/14/2021; Injury details: Fell and hit back of head TECHNIQUE: Imaging protocol: Computed tomography of the head without contrast. Radiation optimization: All CT scans at this facility use at least one of these dose optimization techniques: automated exposure control; mA and/or kV adjustment per patient size (includes targeted exams where dose is matched to clinical indication); or iterative reconstruction. COMPARISON: BRW/O MRI-BRAIN W/O 01/10/2017 1:55 PM FINDINGS: Brain: Normal. No hemorrhage. Unremarkable white matter. No mass effect. Cerebral ventricles: No ventriculomegaly. Paranasal sinuses: Visualized sinuses are unremarkable. No fluid levels. Mastoid air cells: Visualized mastoid air cells are well aerated. Bones/joints: Unremarkable. No acute fracture. Soft tissues: Unremarkable. IMPRESSION: No acute intracranial abnormality.
--- NOTE | 2021-01-14 18:35 | HMH.EDGENADL ---
ED Disposition Clinical Impression: Closed head injury Qualifiers: Encounter type: initial encounter Qualified Code(s): S09.90XA - Unspecified injury of head, initial encounter Disposition: Home, Self-Care Condition on Discharge: Good Prescriptions: Ondansetron [Zofran 4mg ODT] 2 mg PO Q6 PRN #9 tab PRN Reason: Nausea Transmission Status: Pending to [facility] Referrals: Gasper Pierre [Primary Care Provider] - - Critical Care Critical Care Time: No Attestation: On 01/14/21, the high probability of a clinically significant, sudden or life threatening deterioration of the following system(s) required my full and direct attention, intervention and personal management. The time I documented below is in addition to time spent performing reported procedures but includes the following listed in this critical care notation. Medical Decision Making - Medical Records Medical records reviewed: Yes: I reviewed the patient's medical records. - Galileo Inquiry Pt receiving controlled substance: No Vital Signs: 01/14/21 18:15 Temperature 98.2 F Temperature Source Oral Pulse Rate [Left Radial] 75 Respiratory Rate 18 Blood Pressure [Right Arm] 96/71 L Blood Pressure Mean [Right Arm] 79 Blood Pressure Source [Right Arm] Automatic Cuff Blood Pressure Position [Right Arm] Sitting 02 Sat by Pulse Oximetry 98 Oxygen Delivery Method Room Air Orders (Tests/Meds): ED MEDICATIONS Discontinued Medications Generic Name Dose Route Start Last Admin Trade Name Freq PRN Reason Stop Dose Admin Acetaminophen 1,000 mg 01/14/21 18:34 01/14/21 19:06 Acetaminophen 500mg Tab PO 01/14/21 18:35 1,000 mg ONCE ONE Administration Ketorolac Tromethamine 30 mg 01/14/21 18:34 01/14/21 19:06 Ketorolac 30mg/Ml Vial IM 01/14/21 18:35 30 mg ONCE ONE Administration Prochlorperazine Edisylate 10 mg 01/14/21 18:34 01/14/21 19:06 Prochlorperazine 10mg/2ml Vial IM 01/14/21 18:35 10 mg ONCE ONE Administration Medical Decision Narrative: Patient is a 50-year-old female fell today and hit the top of her head. Patient is well-appearing on initial evaluation, appears to have a headache, sunglasses on room is dark. No hematoma or laceration to the top of the head, although given the apparent severity of the impact will obtain a CT head, CT cervical spine. Patient does not take blood thinners, states she did not pass out, is relatively low risk for intracranial bleeding. After CT will administer 1000 mg of oral Tylenol, 10 mg of IM Compazine, 30 mg of IM Toradol for pain relief. Patient is felt symptomatic improvement, CT head without evidence of intracranial trauma, no bleeding, fracture, mass-effect. Cervical spine likewise with no evidence of C-spine fracture or malalignment. Patient can be discharged at this time, I discussed concussion symptoms and return precautions return to the ED with any worsening symptoms, patient will rest for the next 24 hours, increase activity as tolerated titrated to headache, nausea. General Adult HPI - General Chief complaint: Head Injury Stated complaint: AO01/14@1800 fell hit head Time Seen by Provider: 01/14/21 18:32 Mode of Arrival: Wheelchair Limitations: No Limitations Description of Symptoms (Recalled from ER Triage Doc. by RN): oswald, nausea, neck pain and dizziness after hitting the top of her head on a wooden handle on a clothes basket when she slipped and fell. some scratchs on bilateral arms and left knee. - History of Present Illness HPI narrative: Is a 50-year-old female presents the ED today after falling at home. Patient states that she tripped over dog urine on the floor, states that she did catch herself on a wooden basket, states that she lost control, and hit her head on a wall, states she hit the top of her head and is endorsing a headache over this area. States that she does not have a hematoma on the top of her head, did not pass out
[2021-01-14 19:42] VITALS: BP 139/71; PULSE 72; RESP 18; TEMP 36.8; O2SAT 99
== END 2021-01-14 19:45 | disposition home or self-care (01) ==
PROVIDERS: Emergency Provider Student in an Organized Health Care Education/Training Program; PCP Family Medicine
DX: S09.90XA Unspecified injury of head, initial encounter (principal); W18.00XA Striking against unspecified object with subsequent fall, initial encounter; Y92.019 Unspecified place in single-family (private) house as the place of occurrence of the external cause; F41.9 Anxiety disorder, unspecified; Z87.891 Personal history of nicotine dependence; Z79.899 Other long term (current) drug therapy
CPT/HCPCS: 70450; 72125; 99282

== ENCOUNTER 2021-02-01 17:25 | Emergency (ER) | payer BC, SELFPAY ==
[2021-02-01 17:26] VITALS: BP 127/56; PULSE 66; RESP 22; TEMP 36.9; O2SAT 96; BMI 41.2
--- NOTE | 2021-02-01 17:54 | HMH.EDUTC ---
[facility] [place] Clinical Impression: Acute bronchitis Qualifiers: Bronchitis organism: unspecified organism Qualified Code(s): J20.9 - Acute bronchitis, unspecified Sinusitis Qualifiers: Sinusitis location: unspecified location Chronicity: acute Recurrence: non-recurrent Qualified Code(s): J01.90 - Acute sinusitis, unspecified Disposition: Home, Self-Care Condition on Discharge: Good Instructions: DI for Sinusitis, DI for Acute Bronchitis, Preventing the Spread of Coronavirus Discharge Instructions Additional Instructions: Drink plenty of fluids. Take tylenol or ibuprofen for pain or fever. Take the medications as directed. Follow up with your regular doctor. GO TO THE ER FOR ANY WORSENING SYMPTOMS Quarantine until you know the results of your covid-19 test. If it is positive, the health department should call you and give you further instructions about your length of Quarantine and other things. Notify your school or workplace of your results and follow their instructions regarding return to work/school. The cough medication (promethazine dm) will make you drowsy, so don't drive or operate heavy machinery after taking it. Don't start the oral steroids until tomorrow, since you had the injection here today. Prescriptions: Promethazine/Dextromethorphan [Promethazine-Dm Syrup] 5 ml PO Q6HP PRN #240 ml PRN Reason: Cough Transmission Status: Received by [facility] Amoxicillin/Potassium Clav [Augmentin 875-125 Tablet] 1 tab PO Q12H 10 Days #20 tab Transmission Status: Received by [facility] methylPREDNISolone [Medrol] 4 mg PO DIRECTED 6 Days #21 packet Transmission Status: Received by [facility] Referrals: Gasper Pierre [Primary Care Provider] - Forms: Work/School Release Time of Disposition: 18:50 Medical Decision Making - Medical Records Medical records reviewed: No: I reviewed the patient's medical records. - Galileo Inquiry Pt receiving controlled substance: No Vital Signs: 02/01/21 17:26 Temperature 98.5 F Temperature Source Oral Pulse Rate [Radial] 66 Respiratory Rate 22 Blood Pressure [Right Arm] 127/56 L Blood Pressure Mean [Right Arm] 79 Blood Pressure Position [Right Arm] Sitting 02 Sat by Pulse Oximetry 96 Oxygen Delivery Method Room Air - Lab Data Lab results reviewed: Yes: I reviewed the patient's lab results. Orders (Tests/Meds): ORDERS Category Date Time Status Covid-19 Nasal PCR ([facility]) Routine Lab 02/01/21 17:47 Received [facility] [place] HPI - General Stated complaint: covid exposed, sore throat,cough,congestion Time Seen by Provider: 02/01/21 17:54 Mode of Arrival: Ambulatory Source of Information: Patient Limitations: No Limitations Description of Symptoms (Recalled from Triage Doc. by RN): to [facility] with c/o cough, congestion, runny nose, sinus pressure, generalized aches, headache, sorethroat starting saturday. + covid. pt states tested saturday and saturday with neg. results. HEENT Symptoms (Recalled from RN notes): No Resp Symptoms (Recalled from RN notes): Yes Skin Symptoms (Recalled from RN notes): No MS Symptoms (Recalled from RN notes): No Functional Status (Recalled from RN notes): na - History of Present Illness Provider Complaint: She states that she has been sick since last week. She has chest congestion, cough, sinus congestion, very sore throat and she feels bad. She denies any documented fever, but she has chilled some. She works at the [employer] in [place]. She has been fully vaccinated against covid-19. Her currently has covid-19. She has had 3 negative covid-19 test since these symptoms began. Her last covid-19 test was 4 days ago. - Related Data Home Medications Medication Instructions Recorded Confirmed levothyroxine 125 mcg tablet 125 mcg PO DAILY 90 Days #90 08/05/17 09/01/20 aspirin 81 mg chewable tablet 81 mg PO DAILY 01/30/18 09/01/20 Topiramate 250 mg PO QHS
[2021-02-01 19:00] LABS: UTC Strep Screen (Rapid) Negative (Negative)
[2021-02-01 19:14] VITALS: BP 132/74; PULSE 78; RESP 16; TEMP 36.6; O2SAT 98
== END 2021-02-01 19:16 | disposition home or self-care (01) ==
LOC: ER 17:33 → UTC 17:35
PROVIDERS: Emergency Provider Nurse Practitioner Family; PCP Family Medicine
DX: J20.9 Acute bronchitis, unspecified (principal); J01.90 Acute sinusitis, unspecified; Z20.822 Contact with and (suspected) exposure to COVID-19; E11.9 Type 2 diabetes mellitus without complications; F41.9 Anxiety disorder, unspecified; Z87.891 Personal history of nicotine dependence
CPT/HCPCS: 87880; 96372; 99203; C9803; G0463; U0003; U0005

== ENCOUNTER 2021-04-18 18:33 | Emergency (ER) | payer BC, SELFPAY ==
[2021-04-18 18:47] VITALS: BP 137/77; PULSE 71; RESP 18; TEMP 36.8; O2SAT 98; BMI 41.6
--- NOTE | 2021-04-18 19:06 | XR_ITS ---
PROCEDURE INFORMATION: Exam: XR Left Ankle Exam date and time: 04/18/2021 7:06 PM Age: 50 years old Clinical indication: Injury or trauma; Fall; Blunt trauma; Ankle; Left TECHNIQUE: Imaging protocol: XR Left ankle. Views: 3 or more views. COMPARISON: CR XR FOOT LT MIN 3V 04/18/2021 7:10 PM FINDINGS: Bones/joints: Normal. Soft tissues: Normal. IMPRESSION: No acute findings.
--- NOTE | 2021-04-18 19:06 | XR_ITS ---
PROCEDURE INFORMATION: Exam: XR Right Wrist Exam date and time: 04/18/2021 7:06 PM Age: 50 years old Clinical indication: Injury or trauma; Fall; Blunt trauma (contusions or hematomas); Wrist; Right TECHNIQUE: Imaging protocol: XR Right wrist. Views: 3 or more views. COMPARISON: US EXTREMITY RT LIMITED 06/30/2019 12:45 PM FINDINGS: Bones/joints: Normal. Soft tissues: Normal. IMPRESSION: No acute findings.
--- NOTE | 2021-04-18 19:06 | XR_ITS ---
PROCEDURE INFORMATION: Exam: XR Right Knee Exam date and time: 04/18/2021 7:06 PM Age: 50 years old Clinical indication: Injury or trauma; Fall; Blunt trauma; Knee; Right TECHNIQUE: Imaging protocol: XR Right knee. Views: 3 views. COMPARISON: US EXTREMITY RT LIMITED 06/30/2019 12:45 PM FINDINGS: Bones/joints: No fracture. No malalignment. Mild degenerative changes noted. Soft tissues: Soft tissues are unremarkable IMPRESSION: No evidence of acute osseous injury
--- NOTE | 2021-04-18 19:06 | XR_ITS ---
PROCEDURE INFORMATION: Exam: XR Left Foot Exam date and time: 04/18/2021 7:06 PM Age: 50 years old Clinical indication: Injury or trauma; Fall; Blunt trauma; Foot; Left TECHNIQUE: Imaging protocol: XR Left foot. Views: 3 or more views. COMPARISON: No relevant prior studies available. FINDINGS: Bones/joints: Normal. Soft tissues: Normal. IMPRESSION: No acute findings.
[2021-04-18 20:14] VITALS: BP 156/74; PULSE 73; RESP 18; TEMP 36.6; O2SAT 96; BMI 41.6
--- NOTE | 2021-04-18 20:42 | HMH.EDUTC ---
[facility] [place] Clinical Impression: Left foot pain Fall Qualifiers: Encounter type: initial encounter Qualified Code(s): W19.XXXA - Unspecified fall, initial encounter Sprain of right wrist Qualifiers: Encounter type: initial encounter Qualified Code(s): S63.501A - Unspecified sprain of right wrist, initial encounter Sprain of right hand Qualifiers: Encounter type: initial encounter Qualified Code(s): S63.91XA - Sprain of unspecified part of right wrist and hand, initial encounter Left ankle pain Qualifiers: Chronicity: acute Qualified Code(s): M25.572 - Pain in left ankle and joints of left foot Left ankle sprain Qualifiers: Encounter type: initial encounter Involved ligament of ankle: unspecified ligament Qualified Code(s): S93.402A - Sprain of unspecified ligament of left ankle, initial encounter Disposition: Home, Self-Care Condition on Discharge: Good Additional Instructions: Rest the affected extremities, apply ice for 15 minutes as tolerated three or four times per day, Wear the dandy wrap for compression, Elevate the extremities as tolerated while you are resting. Take ibuprofen for pain. I sent in a prescription to your pharmacy. Follow up with Dr. Stafford (orthopedics). Sometimes there can be fractures that don't show up well on the first set of x-rays. So, you should follow up if you continue to have symptoms. I put in a referral but you need to call his office and schedule an appointment. Follow up with Dr. Cota (podiatry) for her foot and ankle pain. Follow up with your regular doctor. GO TO THE ER FOR ANY WORSENING SYMPTOMS Prescriptions: Ibuprofen [Ibuprofen 600mg Tablet] 600 mg PO Q6HP PRN #30 tab PRN Reason: Mild Pain Transmission Status: Pending to [facility] # Mupirocin [Bactroban 2% Ointment 22gm tube] 1 applicatio TP TID 7 Days #1 gm Transmission Status: Pending to [facility] # cephALEXin [cephALEXin 500mg capsule] 500 mg PO Q6H 10 Days #40 cap Transmission Status: Pending to [facility] # Referrals: Gasper Pierre [Primary Care Provider] - Darron Stafford MD [Staff Physician] - Frida Cota DPM [Staff Physician] - Time of Disposition: 21:21 Medical Decision Making - Medical Records Medical records reviewed: No: I reviewed the patient's medical records. - Galileo Inquiry Pt receiving controlled substance: No Vital Signs: 04/18/21 18:47 04/18/21 20:14 Temperature 98.3 F 98 F Temperature Source Oral Oral Pulse Rate [Right Radial] 71 73 Respiratory Rate 18 18 Blood Pressure [Right Arm] 137/77 156/74 H Blood Pressure Mean [Right Arm] 97 101 Blood Pressure Source [Right Arm] Automatic Cuff Blood Pressure Position [Right Arm] Sitting 02 Sat by Pulse Oximetry 98 96 Oxygen Delivery Method Room Air - Lab Data Lab results reviewed: Yes: I reviewed the patient's lab results. [facility] [place] - General Stated complaint: AO 04/18@[id number] injured R wrist,L ankle, r knee Time Seen by Provider: 04/18/21 20:42 Mode of Arrival: Ambulatory Source of Information: Patient Limitations: No Limitations Description of Symptoms (Recalled from Triage Doc. by RN): pt states she fell and injured her L ankle/foot, R wrist and R knee that also has an abrasion. HEENT Symptoms (Recalled from RN notes): No Resp Symptoms (Recalled from RN notes): No Skin Symptoms (Recalled from RN notes): No MS Symptoms (Recalled from RN notes): Yes Functional Status (Recalled from RN notes): wnl - History of Present Illness Provider Complaint: She fell today in her yard. Her left foot slipped on uneven ground and twisted. This caused her to fall. She came down on her right knee and her right arm. She is having left foot and ankle pain, right knee pain and right wrist pain. She is a diabetic. She has an abrasion on her right knee. Her tetanus immunization is up to date. - Related Data Home Medications Medication Instructions Recorded
[2021-04-18 21:51] VITALS: BP 156/74; PULSE 73; RESP 18; TEMP 36.6
== END 2021-04-18 21:52 | disposition home or self-care (01) ==
LOC: ER 18:53 → UTC 18:53
PROVIDERS: Emergency Provider Nurse Practitioner Family; PCP Family Medicine
DX: S63.501A Unspecified sprain of right wrist, initial encounter (principal); S93.402A Sprain of unspecified ligament of left ankle, initial encounter; W01.0XXA Fall on same level from slipping, tripping and stumbling without subsequent striking against object, initial encounter; Y92.017 Garden or yard in single-family (private) house as the place of occurrence of the external cause; E11.9 Type 2 diabetes mellitus without complications; F41.9 Anxiety disorder, unspecified; Z87.891 Personal history of nicotine dependence
CPT/HCPCS: 73110; 73562; 73610; 73630; 99202; G0463

== ENCOUNTER 2021-07-17 09:22 | Emergency (ER) | payer BC, SELFPAY ==
[2021-07-17 10:15] VITALS: BP 148/91; PULSE 112; RESP 18; TEMP 36.8; O2SAT 98; BMI 41.6
--- NOTE | 2021-07-17 10:31 | HMH.EDUTC ---
[facility] [place] Disposition Clinical Impression: Sinusitis Qualifiers: Sinusitis location: unspecified location Chronicity: acute Recurrence: non-recurrent Qualified Code(s): J01.90 - Acute sinusitis, unspecified UTI (urinary tract infection) Qualifiers: Urinary tract infection type: site unspecified Hematuria presence: with hematuria Qualified Code(s): N39.0 - Urinary tract infection, site not specified Disposition: Home, Self-Care Condition on Discharge: Good Instructions: DI for Sinusitis, DI for Urinary Tract Infection (UTI) Additional Instructions: Drink plenty of fluids. Take tylenol or ibuprofen for pain or fever. Take the medications as directed. Follow up with your regular doctor. GO TO THE ER FOR ANY WORSENING SYMPTOMS Don't start the oral steroids until tomorrow, since you had the shot here today. We will culture the urine. That will tell what bacteria is causing your infection and which antibiotics will treat it best. Sometimes the first antibiotic we prescribe turns out to not work against different bacteria. So, make sure you follow up within 3 days if you are not getting better. Prescriptions: Fluconazole [Diflucan 150mg tab] 150 mg PO ONCE #1 tab Transmission Status: Pending to [facility] guaiFENesin [Mucinex 600mg tablet] 1 - 2 tab PO BIDP PRN #30 tab PRN Reason: Congestion Transmission Status: Pending to [facility] Cefdinir [Omnicef 300mg Capsule] 300 mg PO BID #20 cap Transmission Status: Pending to [facility] Phenazopyridine HCl [Pyridium 200mg Tablet] 200 pow PO TID #6 tab Transmission Status: Pending to [facility] Referrals: Gasper Pierre [Primary Care Provider] - Forms: Work/School Release Time of Disposition: 11:20 Medical Decision Making - Medical Records Medical records reviewed: No: I reviewed the patient's medical records. - Galileo Inquiry Pt receiving controlled substance: No Vital Signs: 07/17/21 10:15 07/17/21 10:39 Temperature 98.3 F 98.3 F Temperature Source Oral Pulse Rate 112 H Pulse Rate [Left Brachial] 112 H Respiratory Rate 18 18 Blood Pressure 148/91 H Blood Pressure [Left Arm] 148/91 H Blood Pressure Mean [Left Arm] 110 Blood Pressure Source [Left Arm] Automatic Cuff Blood Pressure Position [Left Arm] Sitting 02 Sat by Pulse Oximetry 98 Oxygen Delivery Method Room Air - Lab Data Lab results reviewed: Yes: I reviewed the patient's lab results. Lab Results 07/17/21 10:24: Influenza Type A Ag Negative, Influenza Type B Ag Negative 07/17/21 10:25: Urine Color Brown, Urine Appearance Clear, Urine pH 5.0, Ur Specific [place] 1.015, Urine Protein 1+, Urine Glucose (UA) 100, Urine Ketones Negative, Urine Blood 3+, Urine Nitrate Positive A, Urine Bilirubin Negative, Urine Urobilinogen 1, Ur Leukocyte Esterase 1+ A Orders (Tests/Meds): ED MEDICATIONS Discontinued Medications Generic Name Dose Route Start Last Admin Trade Name Freq PRN Reason Stop Dose Admin Ceftriaxone Sodium 1 gm 07/17/21 10:50 07/17/21 11:05 Ceftriaxone 1gm Vial IM 07/17/21 10:51 1 gm ONCE ONE Administration Lidocaine HCl 0 ml 07/17/21 10:50 07/17/21 11:05 Lidocaine 1% 5ml Pf Vial IM 07/17/21 10:51 2 ml ONCE ONE Administration Methylprednisolone Sodium Succinate 125 mg 07/17/21 10:50 07/17/21 11:05 Methylprednisolone Sod Succ 125mg Vial IM 07/17/21 10:51 125 mg ONCE ONE Administration ORDERS Category Date Time Status Covid-19 Nasal PCR ([facility]) Routine Lab 07/17/21 10:20 Received Urine Culture Stat Micro 07/17/21 10:20 Received [facility] UTC HPI - General Stated complaint: congestion, bilateral ear pain, h/a, body aches Time Seen by Provider: 07/17/21 10:32 - History of Present Illness Provider Complaint: She states that for the past 2 days she has had sinus congestion, sore throat, nonproductive cough, chest congestion and low gr
[2021-07-17 10:33] LABS: Apearance,Urine Clear (Clear); Color,Urine Orange (Yellow); Glucose,Urine (UA) 100 (Negative); Protein,Urine 1+ (Negative); Specific Gravity, Urine 1.015 (1.005-1.030)
[2021-07-17 10:34] LABS: UTC Influenza A Antigen Negative (Negative); UTC Influenza B Antigen Negative (Negative)
[2021-07-17 10:34] LABS: Bilirubin,Urine Negative (Negative); Blood, Urine 3+ (Negative); Ketones,Urine Negative (Negative); UTC Leukocyte Esterase,Urine 1+ (Negative); UTC Nitrate,Urine Positive (Negative); Urobilinogen,Urine 1 EU/dl (0.2)
[2021-07-17 10:39] VITALS: BP 148/91; PULSE 112; RESP 18; TEMP 36.8; O2SAT 98
== END 2021-07-17 11:39 | disposition home or self-care (01) ==
PROVIDERS: Emergency Provider Nurse Practitioner Family; PCP Family Medicine
DX: J01.90 Acute sinusitis, unspecified (principal); N30.00 Acute cystitis without hematuria; E11.9 Type 2 diabetes mellitus without complications; Z79.899 Other long term (current) drug therapy
CPT/HCPCS: 81003; 87086; 87088; 87186; 87804; 96372; 99213; C9803; G0463; J0696; U0003; U0005

== ENCOUNTER 2022-02-19 08:28 | Emergency (ER) | payer BC, SELFPAY ==
[2022-02-19 08:54] VITALS: BP 122/60; PULSE 70; RESP 18; TEMP 37; O2SAT 96; BMI 41.8
--- NOTE | 2022-02-19 08:59 | EXP.UTC ---
Discharge Plan Disposition Patient Disposition: Home, Self-Care Condition: Good Prescriptions Prescriptions: New benzonatate [benzonatate] 100 mg capsule 100 mg PO TIDP PRN (Reason: Cough) Qty: 30 0RF methylprednisolone 4 mg Tablets,Dose Pack 4 mg PO DIRECTED Qty: 21 0RF cefdinir 300 mg capsule 300 mg PO BID Qty: 20 0RF No Action aspirin 81 mg tablet,chewable 81 mg PO DAILY metformin 1,000 mg tablet 1,000 mg PO BID Label Comments: pt got from another provider tramadol 50 mg tablet 50 mg PO DAILY levothyroxine 125 mcg tablet 125 mcg PO DAILY 90 Days Qty: 90 Label Comments: atorvastatin 40 mg tablet 40 mg PO DAILY losartan 25 mg tablet 25 mg PO DAILY verapamil 40 mg tablet 40 mg PO DAILY pantoprazole 40 mg tablet,delayed release (DR/EC) 40 mg PO DAILY naproxen 500 mg tablet 500 mg PO NEEDED PRN (Reason: pain) gabapentin 100 mg capsule 100 mg PO TID buspirone 10 mg tablet 20 mg PO BID Qty: 120 2RF hydroxyzine pamoate 25 mg capsule 25 mg PO TID PRN (Reason: Anxiety) Qty: 180 0RF ibuprofen 600 MG tablet 600 mg PO Q6HP PRN (Reason: Mild Pain) Qty: 30 0RF phenazopyridine 200 MG tablet 200 pow PO TID Qty: 6 0RF guaifenesin 600 MG tablet extended release 12hr 1 - 2 tab PO BIDP PRN (Reason: Congestion) Qty: 30 0RF sertraline [Zoloft] 100 mg tablet 100 mg PO DAILY trazodone 100 mg tablet 100 mg PO HS solifenacin 10 mg Tablet 10 mg PO DAILY Emgality Pen 120 mg/mL pen injector 120 mg SQ MONTHLY topiramate 50 MG tablet 250 mg PO QHS tizanidine 2 MG capsule 4 mg PO QHS Rx Instructions: Take up to 2 capsules @ HS. Referrals Follow up/Referrals: Inessa Carrillo APRN [Primary Care Provider] - See instructions Activity Restrictions/Add. Instructions Additional Instructions/Restrictions: Drink plenty of fluids. Take tylenol or ibuprofen for pain or fever. Take the medications as directed. Follow up with your regular doctor. GO TO THE ER FOR ANY WORSENING SYMPTOMS Clinical Impressions Clinical Impression: Pharyngitis Stand Alone Forms Stand Alone Forms: Work/School Release Instructions Patient Instructions: Strep Throat, DI for Strep Throat Discharge ED Provider: [address] [facility] [place] HPI General Stated complaint: sore throat,body aches,headache Mode of Arrival: Ambulatory Source of Information: Patient Limitations: No Limitations Time Seen by Provider: 02/19/22 08:59 Description of Symptoms (Recalled from Triage Doc. by RN): pt comes in with c/o sore throat, body aches, cough, chills, headache. symptoms began 02/17. pt took at home covid test this am and it was negative. HEENT Symptoms (Recalled from RN notes): Yes Resp Symptoms (Recalled from RN notes): Yes Skin Symptoms (Recalled from RN notes): No MS Symptoms (Recalled from RN notes): No Functional Status (Recalled from RN notes): n/a History of Present Illness Provider Complaint: She states that for the past 2 days she has had worsening sore throat, chills, body aches and malaise. She had a negative covd-19 test at home. Related Data Home Medications Medication Instructions Recorded Confirmed levothyroxine 125 mcg tablet 125 mcg PO DAILY thyroid 90 days 08/05/17 02/19/22 ##90 aspirin 81 mg chewable tablet 81 mg PO DAILY MIGRAINES 01/30/18 02/19/22 topiramate 50 mg tablet 250 mg PO QHS MIGRAINES 05/22/19 11/28/21 metformin 1,000 mg tablet 1,000 mg PO BID Diabetes 12/18/19 02/19/22 tramadol 50 mg tablet 50 mg PO DAILY Pain 12/18/19 11/28/21 atorvastatin 40 mg tablet 40 mg PO DAILY Cholesterol 08/08/20 11/28/21 gabapentin 100 mg capsule 100 mg PO TID Pain 08/08/20 02/19/22 losartan 25 mg tablet 25 mg PO DAILY blood pressure 08/08/20 02/19/22 naproxen 500 mg tablet 500 mg PO NEEDED PRN pain 08/08/20 11/28/21 pantoprazole 40 mg tablet,delayed 40 mg PO DA
[2022-02-19 09:05] LABS: UTC Influenza A Antigen Negative (Negative); UTC Influenza B Antigen Negative (Negative); UTC Strep Screen (Rapid) Negative (Negative)
[2022-02-19 09:32] VITALS: BP 122/60; PULSE 70; RESP 18; TEMP 37
[2022-02-19 09:38] LABS: Bordetella Pertussis Not Detected (NotDetected); Chlamydophila Pneumoniae, PCR Not Detected (NotDetected); Coronavirus 19, PCR Not Detected (NotDetected); Coronavirus 229E Not Detected (NotDetected); Coronavirus NL63 Not Detected (NotDetected); Coronavirus OC43 Not Detected (NotDetected); Coronovirus HKU1,PCR Not Detected (NotDetected); Human Metapneumovirus Not Detected (NotDetected); Influenza A, PCR Not Detected (NotDetected); Influenza AH1, 2009 Not Detected (NotDetected); Influenza AH1, PCR Not Detected (NotDetected); Influenza AH3,PCR Not Detected (NotDetected); Influenza B, PCR Not Detected (NotDetected); Mycoplasma Pneumoniae, PCR Not Detected (NotDetected); Parainfluenza 1, PCR Not Detected (NotDetected); Parainfluenza 2, PCR Not Detected (NotDetected); Parainfluenza 3, PCR Not Detected (NotDetected); Parainfluenza 4, PCR Not Detected (NotDetected); Respiratory Syncytial Virus Not Detected (NotDetected)
[2022-02-19 09:40] LABS: Adenovirus,PCR Not Detected (NotDetected)
[2022-02-19 12:17] LABS: Rhinovirus/Enterovirus Detected (NotDetected)
== END 2022-02-19 09:38 | disposition home or self-care (01) ==
PROVIDERS: Emergency Provider Nurse Practitioner Family; PCP Nurse Practitioner Family
DX: J02.9 Acute pharyngitis, unspecified (principal); B34.8 Other viral infections of unspecified site
CPT/HCPCS: 87581; 87632; 87798; 87804; 87880; 99212; C9803; G0463; U0003; U0005

== ENCOUNTER → 2022-11-30 15:30 | Outpatient (CLI) | payer OTHER, SELFPAY ==
--- NOTE | 2022-11-30 15:45 | XR_ITS ---
FINAL REPORT CLINICAL HISTORY: Degenerative disc in the lumbar spine COMPARISON: None FINDINGS: 3 views of the lumbosacral spine were obtained. No fracture is identified. There is mild diffuse degenerative disc disease. There is mild endplate spurring. Alignment is normal. IMPRESSION: Degenerative changes without acute process. Reviewed, Interpreted and Dictated by Celeste De Guzman MD Transcribed by Ursula Harvey Authenticated and [facility]
--- NOTE | 2022-11-30 15:46 | XR_ITS ---
FINAL REPORT CLINICAL HISTORY: Degenerative disc in the thoracic spine COMPARISON: None FINDINGS: 3 views of the thoracic spine were obtained. There is no fracture present. Spondylosis with mild diffuse degenerative disc disease. No malalignment. IMPRESSION: Degenerative changes without acute process. Reviewed, Interpreted and Dictated by Celeste De Guzman MD Transcribed by Ursula Harvey Authenticated and [facility]
== END ==
PROVIDERS: PCP Nurse Practitioner Family; Visit Provider Chiropractor
DX: M51.35 Other intervertebral disc degeneration, thoracolumbar region (principal); M47.817 Spondylosis without myelopathy or radiculopathy, lumbosacral region
CPT/HCPCS: 72072; 72100

== ENCOUNTER 2023-02-08 17:37 | Emergency (ER) | payer BC, SELFPAY ==
[2023-02-08] VITALS (9 sets, daily range): BP systolic 102–132; BP diastolic 54–75; PULSE 68–106; RESP 9–23; TEMP 36.9–37.2; O2SAT 93–97; BMI 42.7
--- NOTE | 2023-02-08 17:36 | ECG_ITS ---
APPROVED REPORT Exam: Resting ECG HR:104 bpm ECG Measurements Heart Rate 104 AXES PA 189 P 56 QRSd 99 QRS -52 QT 318 T 88 QTc 378 Conclusion SINUS TACHYCARDIA LEFT ANTERIOR FASCICULAR BLOCK LAD Late R wave progression ABNORMAL ECG UNCONFIRMED REPORT Electronically signed by : Tuan Pierce MD 02/09/2023 07:55:34
--- NOTE | 2023-02-08 17:40 | XR_ITS ---
PROCEDURE INFORMATION: Exam: XR Chest Exam date and time: 02/08/2023 6:00 PM Age: 52 years old Clinical indication: Pain; Chest pressure; Additional info: Chest pain TECHNIQUE: Imaging protocol: Radiologic exam of the chest. Views: 1 view. COMPARISON: CR XR CHEST 2V 10/31/2020 6:52 PM FINDINGS: Lungs: No evidence of acute pulmonary disease or infiltrates; lung purcell appear clear. Pleural spaces: No evidence of pleural effusion, pneumothorax, or pleural thickening in the visualized pleural spaces. Heart/Mediastinum: No evidence of mediastinal widening or cardiac silhouette enlargement; the mediastinum and heart appear within normal limits for contour and size. Bones/joints: No evidence of acute osseous abnormalities within the visualized portions of the thoracic spine and ribs. Osseous structures appear appropriate for patient age. IMPRESSION: Negative study. No acute cardiopulmonary abnormalities identified. Osseous structures within the visualized portions of the thoracic spine and ribs show no acute abnormalities and appear appropriate for patient age.
--- NOTE | 2023-02-08 17:44 | PC.NURSE ---
RAD at for CXR
--- NOTE | 2023-02-08 17:50 | HMH.EDGENADL ---
Discharge Plan Disposition Patient Disposition: Home, Self-Care Prescriptions Prescriptions: No Action aspirin 81 mg tablet,chewable 81 mg PO DAILY metformin 1,000 mg tablet 1,000 mg PO BID Patient Comments: pt got from another provider levothyroxine 125 mcg tablet 125 mcg PO DAILY 90 Days Qty: 90 Patient Comments: losartan 25 mg tablet 25 mg PO DAILY verapamil 40 mg tablet 40 mg PO DAILY pantoprazole 40 mg tablet,delayed release (DR/EC) 40 mg PO DAILY gabapentin 100 mg capsule 300 mg PO TID buspirone 10 mg tablet 20 mg PO BID Qty: 120 2RF sertraline [Zoloft] 100 mg tablet 100 mg PO DAILY trazodone 100 mg tablet 100 mg PO HS solifenacin 10 mg Tablet 10 mg PO DAILY Emgality Pen 120 mg/mL pen injector 120 mg SQ MONTHLY primidone 50 mg tablet 50 mg PO BID rosuvastatin 10 mg tablet 10 mg PO DAILY hydrocodone-acetaminophen 7.5-325 mg tablet 1 tab PO DAILY celecoxib [Celebrex] 100 mg Capsule 100 mg PO BID topiramate 50 MG tablet 250 mg PO QHS tizanidine 2 MG capsule 4 mg PO QHS Rx Instructions: Take up to 2 capsules @ HS. Referrals Follow up/Referrals: Inessa Carrillo APRN [Primary Care Provider] - See instructions Steve Somers MD [Staff Physician] - See instructions Clinical Impressions Clinical Impression: Acute chest pain Discharge ED Provider: Tiago Bobo Adult HPI General Chief complaint: Chest Pain Stated complaint: Chest Pain Time Seen by Provider: 02/08/23 17:40 Mode of Arrival: Ambulatory Source of Information: Patient Limitations: No Limitations Description of Symptoms (Recalled from ER Triage Doc. 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 Pt describes pain as sharp/stabbing in nature, denies radiation of pain. Pt reports pain began suddenly, also reports SOA when cp started. History of Present Illness HPI narrative: Patient presents with left-sided nonradiating nonpleuritic nonexertional sharp stabbing chest pain acute in onset starting 15 minutes prior to arrival. Associated symptoms include shortness of breath. No previous therapies. No pain elsewhere. No syncope or presyncope. Has not had similar symptoms before. Related Data Home Medications Medication Instructions Recorded Confirmed levothyroxine 125 mcg tablet 125 mcg PO DAILY thyroid 90 days 08/05/17 02/08/23 ##90 aspirin 81 mg chewable tablet 81 mg PO DAILY MIGRAINES 01/30/18 02/08/23 topiramate 50 mg tablet 250 mg PO QHS MIGRAINES 05/22/19 05/18/22 metformin 1,000 mg tablet 1,000 mg PO BID Diabetes 12/18/19 02/08/23 gabapentin 100 mg capsule 300 mg PO TID Pain 08/08/20 02/08/23 losartan 25 mg tablet 25 mg PO DAILY blood pressure 08/08/20 02/08/23 pantoprazole 40 mg tablet,delayed 40 mg PO DAILY GERD 08/08/20 05/18/22 release verapamil 40 mg tablet 40 mg PO DAILY blood pressure 08/08/20 05/18/22 tizanidine 2 mg capsule 4 mg PO QHS muscle relaxer 09/01/20 05/18/22 galcanezumab-gnlm 120 mg/mL 120 mg SQ MONTHLY Headache 02/19/22 02/08/23 subcutaneous pen injector (Emgality Pen) sertraline 100 mg tablet (Zoloft) 100 mg PO DAILY Anxiety 02/19/22 02/08/23 solifenacin 10 mg tablet 10 mg PO DAILY bladder 02/19/22 02/08/23 trazodone 100 mg tablet 100 mg PO HS Insomnia 02/19/22 02/08/23 celecoxib 100 mg capsule (Celebrex) 100 mg PO BID Pain 02/08/23 02/08/23 hydrocodone 7.5 mg-acetaminophen 1 tab PO DAILY Pain 02/08/23 02/08/23 325 mg tablet primidone 50 mg tablet 50 mg PO BID tremors 02/08/23 02/08/23 rosuvastatin 10 mg tablet 10 mg PO DAILY Cholesterol 02/08/23 02/08/23 Previous Rx's Medication Instructions Recorded buspirone 10 mg tablet 20 mg PO BID mood #120 tabs 07/25/21 Allergies Allergy/AdvReac Type Severity Reaction Status Date / Time codeine Allergy Intermediate I-ITCHING Verified 05/18/22 11:41 oxycodone [From P
[2023-02-08 17:53] LABS: Coronavirus 19, PCR Not Detected (NotDetected); Influenza A, PCR Not Detected (NotDetected); Influenza B, PCR Not Detected (NotDetected)
[2023-02-08 17:54] LABS: Basophils # 0.1 K/mm3 (0-0.2); Basophils % 0.6 % (0.1-2.0); Eosinophils # 0.3 K/mm3 (0.0-0.4); Eosinophils % 2.4 % (0.1-12.0); Hematocrit 40.7 % (37.0-47.0); Hemoglobin 13.3 g/dL (12.2-16.2); Lymphocytes # 2.9 K/mm3 (0.7-4.5); Lymphocytes % 25.6 % (10-50); Mean Corpuscular HGB Conc 32.6 g/dL (31.8-35.4); Mean Corpuscular Hemoglobin 27.2 pg (27.0-31.2); Mean Corpuscular Volume 83.3 fl (81-99); Mean Platelet Volume 8.3 fl (7.4-10.4); Monocytes # 0.6 K/mm3 (0.1-1.0); Monocytes % 4.9 % (1.7-9.3); Neutrophils # 7.6 K/mm3 (1.8-7.8); Neutrophils % 66.5 % (37.0-80.0); Platelet Count 279 K/mm3 (142-424); Red Blood Count 4.88 M/mm3 (4.20-5.40); Red Cell Distribution Width 14.3 % (11.5-17.5); White Blood Count 11.5 K/mm3 (4.8-10.8)
[2023-02-08 18:05] LABS: Alanine Aminotransferase 58 U/L (12-78); Albumin Level 4.8 g/dl (3.5-5.0); Albumin/Globulin Ratio 1.5 (1.1-1.8); Alkaline Phosphatase 82 U/L (38-126); Anion Gap 12.7 mEq/L (5-15); Aspartate Amino Transferase 45 U/L (14-36); Bilirubin,Total 0.8 mg/dl (0.2-1.3); Blood Urea Nitrogen 16 mg/dl (7-17); Calcium 9.3 mg/dl (8.4-10.2); Carbon Dioxide 29 mmol/L (22.0-30.0); Chloride 103 mmol/L (98-107); Creatinine Clearance Estimated 83 mL/min (50-200); Estimated Glomerular Filt Rate 65 ml/min (>60); GFR (African American) 79 ML/MIN (>60); Globulin 3.3 g/dL (1.3-3.2); Glucose 104 mg/dl (74-100); Potassium 3.7 mmoL/L (3.5-5.1); Sodium 141 mmol/L (136-145); Total Protein,Serum 8.1 g/dl (6.3-8.2)
[2023-02-08 18:21] LABS: Troponin I 0.01 ng/ml (0.00-0.034)
[2023-02-08 20:23] LABS: Troponin I 0.01 ng/ml (0.00-0.034)
--- NOTE | 2023-02-08 20:39 | ECG_ITS ---
APPROVED REPORT Exam: Resting ECG HR:60 bpm ECG Measurements Heart Rate 60 AXES OH 214 P 55 QRSd 119 QRS -47 QT 410 T 57 QTc 411 Conclusion SINUS RHYTHM WITH FIRST DEGREE AV BLOCK LEFT ANTERIOR FASCICULAR BLOCK [QRS AXIS <= -45, QR IN I, RS IN II] POSSIBLE ANTERIOR MYOCARDIAL INFARCTION , OF INDETERMINATE AGE [30 ms Q WAVE IN V3/V4, OR R < 0.2 mV IN V4] ABNORMAL ECG UNCONFIRMED REPORT Electronically signed by : Tuan Pierce MD 02/09/2023 07:54:49
[2023-02-08 21:34] LABS: Troponin I < 0.01 ng/ml (0.00-0.034)
== END 2023-02-08 21:03 | disposition home or self-care (01) ==
PROVIDERS: Emergency Provider Emergency Medicine; PCP Nurse Practitioner Family
DX: R07.89 Other chest pain (principal); R94.31 Abnormal electrocardiogram [ECG] [EKG]; F17.210 Nicotine dependence, cigarettes, uncomplicated; F43.10 Post-traumatic stress disorder, unspecified; F33.9 Major depressive disorder, recurrent, unspecified; F41.1 Generalized anxiety disorder
CPT/HCPCS: 71045; 80053; 84484; 85025; 87636; 93005; 96374; 99284

== ENCOUNTER 2023-04-03 19:49 | Emergency (ER) | payer BC, SELFPAY ==
[2023-04-03 19:49] VITALS: BP 140/77; PULSE 81; RESP 16; TEMP 36.9; O2SAT 98; BMI 39.2
--- NOTE | 2023-04-03 19:49 | CT_ITS ---
PROCEDURE INFORMATION: Exam: CTA Neck With Contrast Exam date and time: 04/03/2023 8:11 PM Age: 52 years old Clinical indication: Pain; Headache; Additional info: Global headache severe, L thyroid fna 2day TECHNIQUE: Imaging protocol: Computed tomographic angiography of the neck with contrast. Exam focused on the cervical segments of the vasculature. 3D rendering (Not supervised by radiologist): MIP and/or 3D reconstructed images were created by the technologist. Radiation optimization: All CT scans at this facility use at least one of these dose optimization techniques: automated exposure control; mA and/or kV adjustment per patient size (includes targeted exams where dose is matched to clinical indication); or iterative reconstruction. Contrast material: ISOVUE; Contrast volume: 100 ml; Contrast route: INTRAVENOUS (IV); REPORTING DATA: Count of CT and Cardiac NM exams in prior 12 months: This patient has received 0 known CTs and 0 known cardiac nuclear medicine studies in the 12 months prior to the current study. COMPARISON: CT CERVICAL SPINE WO CON 01/14/2021 6:43 PM FINDINGS: Right common carotid artery: No significant stenosis. No dissection or occlusion. Right internal carotid artery: No stenosis of the right internal carotid artery using NASCET criteria. Artifact limits evaluation of this vessel. Right external carotid artery: No occlusion or significant stenosis. Left common carotid artery: No significant stenosis. No dissection or occlusion. Left internal carotid artery: Increased tortuosity of the left internal carotid artery. No stenosis using NASCET criteria. Artifact limits evaluation of this vessel. Left external carotid artery: No occlusion or significant stenosis. Right vertebral artery: Artifact limits evaluation of the right vertebral artery, without occlusion. Left vertebral artery: Artifact limits evaluation of the left vertebral artery, without occlusion. The left vertebral artery originates from the aortic arch, which is a developmental variant. Right subclavian artery: The right subclavian artery is patent, as visualized. Left subclavian artery: Venous enhancement and artifact limit evaluation of the left subclavian artery. Aorta: Fluid is seen in the superior aortic recess. Thyroid: The right thyroid lobe is absent. Within the left thyroid lobe, there is a 1.1 cm hypodense nodule. An additional small left thyroid lobe nodule is seen. Soft tissues: No significant soft tissue swelling. Bones/joints: Straightening of the lordotic curvature of the cervical spine. Degenerative changes are identified involving the cervical and upper thoracic spine. Artifact limits evaluation of spinal canal. Patchy sclerotic change is identified involving the right sphenoid bone, chronic compared to the prior CT. Fibrous dysplasia is within the differential. Lungs: A small calcified nodule/granuloma is identified within the left upper lobe of the lung. Pleural spaces: There is an increase in pleural based fatty density bilaterally. IMPRESSION: 1. No stenosis or occlusion of the extracranial carotid arteries bilaterally. 2. No occlusion of the vertebral arteries bilaterally. 3. Left thyroid lobe nodules. 4. Patchy sclerotic change is identified involving the right sphenoid bone, which is chronic. Fibrous dysplasia is within the differential. 5. Additional findings described above. COMMENTS: Consistent with the [employer]'s Incidental Findings Committee white paper ([employer]al Radiol 2015): In patients aged 35 years and older with an incidental thyroid nodule equal to or greater than 1.[address], MRI or extrathyroidal US, further evaluation with dedicated thyr
--- NOTE | 2023-04-03 19:49 | CT_ITS ---
PROCEDURE INFORMATION: Exam: CT Head Without Contrast Exam date and time: 04/03/2023 8:11 PM Age: 52 years old Clinical indication: Pain; Headache; Additional info: Global headache severe, L thyroid fna 2day TECHNIQUE: Imaging protocol: Computed tomography of the head without contrast. Radiation optimization: All CT scans at this facility use at least one of these dose optimization techniques: automated exposure control; mA and/or kV adjustment per patient size (includes targeted exams where dose is matched to clinical indication); or iterative reconstruction. REPORTING DATA: Count of CT and Cardiac NM exams in prior 12 months: This patient has received 0 known CTs and 0 known cardiac nuclear medicine studies in the 12 months prior to the current study. COMPARISON: CT ANGIO HEAD 04/03/2023 8:11 PM FINDINGS: Brain: Normal. No hemorrhage. Unremarkable white matter. No mass effect. Cerebral ventricles: No ventriculomegaly. Paranasal sinuses: Visualized sinuses are unremarkable. No fluid levels. Mastoid air cells: Visualized mastoid air cells are well aerated. Bones/joints: Unremarkable. No acute fracture. Soft tissues: Unremarkable. IMPRESSION: No acute intracranial abnormality.
--- NOTE | 2023-04-03 19:49 | CT_ITS ---
PROCEDURE INFORMATION: Exam: CTA Head With Contrast, Arteriography Exam date and time: 04/03/2023 8:11 PM Age: 52 years old Clinical indication: Pain; Headache; Additional info: Global headache severe, L thyroid fna 2day TECHNIQUE: Imaging protocol: Computed tomographic angiography of the head with contrast. Exam focused on the arteries. 3D rendering (Not supervised by radiologist): MIP and/or 3D reconstructed images were created by the technologist. Radiation optimization: All CT scans at this facility use at least one of these dose optimization techniques: automated exposure control; mA and/or kV adjustment per patient size (includes targeted exams where dose is matched to clinical indication); or iterative reconstruction. Contrast material: ISOVUE; Contrast volume: 100 ml; Contrast route: INTRAVENOUS (IV); REPORTING DATA: Count of CT and Cardiac NM exams in prior 12 months: This patient has received 0 known CTs and 0 known cardiac nuclear medicine studies in the 12 months prior to the current study. COMPARISON: CT HEAD/BRAIN WO CON 04/03/2023 8:11 PM FINDINGS: ANTERIOR CIRCULATION: Right internal carotid artery: Atherosclerosis of the right internal carotid artery, with mild stenosis. No visualized aneurysm. No intracranial occlusion. Right middle cerebral artery: No large vessel occlusion involving the right MCA. Stenoses are visualized of M2 segments of the right MCA. This can be contributed by artifact. Right anterior cerebral artery: No occlusion or significant stenosis. No aneurysm. Left internal carotid artery: Intracranial segment is patent with no significant stenosis. No aneurysm. Left middle cerebral artery: Artifact limits evaluation of a few M3 segments of the left MCA. Stenoses are suggested. No significant stenosis or occlusion of M1 or M2 segments. No visualized aneurysm. Left anterior cerebral artery: No occlusion or significant stenosis. No aneurysm. POSTERIOR CIRCULATION: Right vertebral artery: No occlusion or significant stenosis. No aneurysm. Left vertebral artery: No occlusion or significant stenosis. No aneurysm. Basilar artery: No occlusion or significant stenosis. No aneurysm. 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 Evaluation of the distal right PARTS PICKER is limited, without occlusion. No significant stenosis or occlusion of the remaining right PARTS PICKER. There is persistence of the origin of the PARTS PICKER. Left posterior cerebral artery: Evaluation of the distal left PARTS PICKER is limited, without occlusion. No significant stenosis or occlusion of the remaining left PARTS PICKER. Brain: No definite mass effect. Refer to the head CT report from the same day. Cerebral ventricles: No ventriculomegaly. Bones/joints: No acute fracture. Soft tissues: Unremarkable. IMPRESSION: 1. No large vessel arterial occlusion on this CTA head. 2. Atherosclerosis of the right internal carotid artery, with mild stenosis. 3. Stenoses are suggested of the middle cerebral arteries bilaterally. 4. Additional findings described above.
--- NOTE | 2023-04-03 19:50 | HMH.EDGENADL ---
Discharge Plan Disposition Patient Disposition: Home, Self-Care Chief Complaint: Headache Prescriptions Prescriptions: No Action aspirin 81 mg tablet,chewable 81 mg PO DAILY metformin 1,000 mg tablet 1,000 mg PO BID Patient Comments: pt got from another provider levothyroxine 125 mcg tablet 125 mcg PO DAILY 90 Days Qty: 90 Patient Comments: losartan 25 mg tablet 25 mg PO DAILY verapamil 40 mg tablet 40 mg PO DAILY pantoprazole 40 mg tablet,delayed release (DR/EC) 40 mg PO DAILY gabapentin 100 mg capsule 300 mg PO TID buspirone 10 mg tablet 20 mg PO BID Qty: 120 2RF sertraline [Zoloft] 100 mg tablet 100 mg PO DAILY trazodone 100 mg tablet 100 mg PO HS solifenacin 10 mg Tablet 10 mg PO DAILY Emgality Pen 120 mg/mL pen injector 120 mg SQ MONTHLY primidone 50 mg tablet 50 mg PO BID rosuvastatin 10 mg tablet 10 mg PO DAILY hydrocodone-acetaminophen 7.5-325 mg tablet 1 tab PO DAILY celecoxib [Celebrex] 100 mg Capsule 100 mg PO BID topiramate 50 MG tablet 250 mg PO QHS tizanidine 2 MG capsule 4 mg PO QHS Rx Instructions: Take up to 2 capsules @ HS. Referrals Follow up/Referrals: Inessa Carrillo APRN [Primary Care Provider] - See instructions Activity Restrictions/Add. Instructions Additional Instructions/Restrictions: At this time is felt you are safe to be discharged home. If new or worsening symptoms please not hesitate to return the emergency department. Please continue to follow-up with your family doctor for continued surveillance of your thyroid and abnormal bone at the base of your skull as discussed. Clinical Impressions Clinical Impression: Headache, Left thyroid nodule, Bony sclerosis Discharge ED Provider: Sav Newell General Adult HPI General Chief complaint: Headache Stated complaint: Headache Time Seen by Provider: 04/03/23 19:49 History of Present Illness HPI narrative: Patient is a 52-year-old female with past medical history of migraines on controlled medications and abortive therapies, diabetes, previous thyroidectomy who presents emergency department for evaluation of headache. Patient had a FNA today over an area of concern where her left thyroid was previously. Patient had an acute onset headache at home later this evening, global, severe in intensity with associated photophobia. This is different from her baseline headaches given that usually her migraines are unilateral with associated photophobia and not global, respond to her abortive therapy and sleep. Patient is abortive therapy did not work so she contacted 911 for continued evaluation. Related Data Home Medications Medication Instructions Recorded Confirmed levothyroxine 125 mcg tablet 125 mcg PO DAILY thyroid 90 days 08/05/17 02/08/23 ##90 aspirin 81 mg chewable tablet 81 mg PO DAILY MIGRAINES 01/30/18 02/08/23 topiramate 50 mg tablet 250 mg PO QHS MIGRAINES 05/22/19 05/18/22 metformin 1,000 mg tablet 1,000 mg PO BID Diabetes 12/18/19 02/08/23 gabapentin 100 mg capsule 300 mg PO TID Pain 08/08/20 02/08/23 losartan 25 mg tablet 25 mg PO DAILY blood pressure 08/08/20 02/08/23 pantoprazole 40 mg tablet,delayed 40 mg PO DAILY GERD 08/08/20 05/18/22 release verapamil 40 mg tablet 40 mg PO DAILY blood pressure 08/08/20 05/18/22 tizanidine 2 mg capsule 4 mg PO QHS muscle relaxer 09/01/20 05/18/22 galcanezumab-gnlm 120 mg/mL 120 mg SQ MONTHLY Headache 02/19/22 02/08/23 subcutaneous pen injector (Emgality Pen) sertraline 100 mg tablet (Zoloft) 100 mg PO DAILY Anxiety 02/19/22 02/08/23 solifenacin 10 mg tablet 10 mg PO DAILY bladder 02/19/22 02/08/23 trazodone 100 mg tablet 100 mg PO HS Insomnia 02/19/22 02/08/23 celecoxib 100 mg capsule (Celebrex) 100 mg PO BID Pain 02/08/23 02/08/23 hydrocodone 7.5 mg-acetaminophen 1 tab PO DAILY Pain 02/08/23 02/08/23 325 mg tablet pr
[2023-04-03 20:00] VITALS: BP 130/73; PULSE 70; RESP 15; O2SAT 97
--- NOTE | 2023-04-03 20:02 | ECG_ITS ---
APPROVED REPORT Exam: Resting ECG HR:71 bpm ECG Measurements Heart Rate 71 AXES [place] 207 P 26 QRSd 108 QRS -42 QT 393 T 51 QTc 415 Conclusion SINUS RHYTHM LEFT AXIS DEVIATION [QRS AXIS < -30] Late R wave progression ABNORMAL ECG UNCONFIRMED REPORT Electronically signed by : Tuan Pierce MD 04/05/2023 16:36:32
[2023-04-03 20:05] LABS: Basophils # 0.1 K/mm3 (0-0.2); Basophils % 0.5 % (0.1-2.0); Eosinophils # 0.2 K/mm3 (0.0-0.4); Eosinophils % 1.6 % (0.1-12.0); Hematocrit 40.7 % (37.0-47.0); Hemoglobin 13.6 g/dL (12.2-16.2); Lymphocytes % 31.3 % (10-50); Mean Corpuscular HGB Conc 33.4 g/dL (31.8-35.4); Mean Corpuscular Hemoglobin 28.4 pg (27.0-31.2); Mean Corpuscular Volume 84.9 fl (81-99); Mean Platelet Volume 8.2 fl (7.4-10.4); Monocytes # 0.5 K/mm3 (0.1-1.0); Monocytes % 4.7 % (1.7-9.3); Platelet Count 250 K/mm3 (142-424); Red Blood Count 4.79 M/mm3 (4.20-5.40); Red Cell Distribution Width 14.2 % (11.5-17.5); White Blood Count 9.7 K/mm3 (4.8-10.8)
[2023-04-03 20:15] LABS: Chloride 98 mmol/L (98-107); Potassium 3.4 mmoL/L (3.5-5.1); Sodium 135 mmol/L (136-145)
[2023-04-03 20:18] LABS: Anion Gap 11.4 mEq/L (5-15); Blood Urea Nitrogen 8 mg/dl (7-17); Carbon Dioxide 29 mmol/L (22.0-30.0); Creatinine Clearance Estimated 168 mL/min (50-200); Estimated Glomerular Filt Rate 75 ml/min (>60); GFR (African American) 91 ML/MIN (>60); Glucose 107 mg/dl (74-100)
[2023-04-03 20:31] VITALS: BP 115/54; PULSE 69; RESP 18; O2SAT 96
[2023-04-03 21:01] VITALS: BP 102/42; PULSE 63; RESP 22; O2SAT 95
[2023-04-03 21:31] VITALS: BP 99/51; PULSE 66; RESP 20; O2SAT 94
[2023-04-03 21:41] VITALS: BP 100/71; PULSE 66; RESP 20; TEMP 36.9; O2SAT 94
== END 2023-04-03 21:42 | disposition home or self-care (01) ==
PROVIDERS: Emergency Provider Emergency Medicine; PCP Nurse Practitioner Family
DX: G44.89 Other headache syndrome (principal); E04.1 Nontoxic single thyroid nodule; M89.8X8 Other specified disorders of bone, other site; E11.9 Type 2 diabetes mellitus without complications; F17.210 Nicotine dependence, cigarettes, uncomplicated; Z90.89 Acquired absence of other organs; Z79.84 Long term (current) use of oral hypoglycemic drugs
CPT/HCPCS: 70450; 70496; 70498; 80048; 85025; 93005; 96361; 96374; 96375; 99285; J0131; Q9967

== ENCOUNTER 2023-05-10 17:57 | Emergency (ER) | payer BC, SELFPAY ==
[2023-05-10 18:45] VITALS: BP 127/88; PULSE 88; RESP 19; TEMP 37.2; O2SAT 98; BMI 38.7
--- NOTE | 2023-05-10 18:47 | EXP.UTC ---
Discharge Plan Disposition Patient Disposition: Home, Self-Care Condition: Good Prescriptions Prescriptions: New benzonatate [benzonatate] 100 mg capsule 100 mg PO TIDP PRN (Reason: Cough) Qty: 30 0RF methylprednisolone 4 mg Tablets,Dose Pack 4 mg PO DIRECTED 6 Days Qty: 21 0RF Rx Instructions: Take 1 pack as directed for 6 days cefdinir 300 mg capsule 300 mg PO BID Qty: 20 0RF guaifenesin [Mucinex] 600 mg tablet extended release 12hr 600 - 1,200 mg PO BIDP PRN (Reason: Congestion) Qty: 30 0RF No Action aspirin 81 mg tablet,chewable 81 mg PO DAILY metformin 1,000 mg tablet 1,000 mg PO BID Patient Comments: pt got from another provider levothyroxine 125 mcg tablet 125 mcg PO DAILY 90 Days Qty: 90 Patient Comments: losartan 25 mg tablet 25 mg PO DAILY verapamil 40 mg tablet 40 mg PO DAILY pantoprazole 40 mg tablet,delayed release (DR/EC) 40 mg PO DAILY gabapentin 100 mg capsule 300 mg PO TID buspirone 10 mg tablet 20 mg PO BID Qty: 120 2RF sertraline [Zoloft] 100 mg tablet 100 mg PO DAILY trazodone 100 mg tablet 100 mg PO HS solifenacin 10 mg Tablet 10 mg PO DAILY Emgality Pen 120 mg/mL pen injector 120 mg SQ MONTHLY primidone 50 mg tablet 50 mg PO BID rosuvastatin 10 mg tablet 10 mg PO DAILY hydrocodone-acetaminophen 7.5-325 mg tablet 1 tab PO DAILY celecoxib [Celebrex] 100 mg Capsule 100 mg PO BID topiramate 50 MG tablet 250 mg PO QHS tizanidine 2 MG capsule 4 mg PO QHS Rx Instructions: Take up to 2 capsules @ HS. Referrals Follow up/Referrals: Inessa Carrillo APRN [Primary Care Provider] - See instructions Activity Restrictions/Add. Instructions Additional Instructions/Restrictions: Drink plenty of fluids. Take tylenol or ibuprofen for pain or fever. Take the medications as directed. Follow up with your regular doctor. GO TO THE ER FOR ANY WORSENING SYMPTOMS Clinical Impressions Clinical Impression: Viral syndrome, Bronchitis, Pharyngitis Stand Alone Forms Stand Alone Forms: Work/School Release Instructions Patient Instructions: DI for Viral Syndrome Discharge ED Provider: [facility] General Stated complaint: body aches, sore throat, congestion, runny nose Time Seen by Provider: 05/10/23 18:47 History of Present Illness Provider Complaint: She states that for the past 4 days she has had body aches, chills, low grade fever, malaise, cough and congestion. Related Data Home Medications Medication Instructions Recorded Confirmed levothyroxine 125 mcg tablet 125 mcg PO DAILY thyroid 90 days 08/05/17 02/08/23 ##90 aspirin 81 mg chewable tablet 81 mg PO DAILY MIGRAINES 01/30/18 02/08/23 topiramate 50 mg tablet 250 mg PO QHS MIGRAINES 05/22/19 05/18/22 metformin 1,000 mg tablet 1,000 mg PO BID Diabetes 12/18/19 02/08/23 gabapentin 100 mg capsule 300 mg PO TID Pain 08/08/20 02/08/23 losartan 25 mg tablet 25 mg PO DAILY blood pressure 08/08/20 02/08/23 pantoprazole 40 mg tablet,delayed 40 mg PO DAILY GERD 08/08/20 05/18/22 release verapamil 40 mg tablet 40 mg PO DAILY blood pressure 08/08/20 05/18/22 tizanidine 2 mg capsule 4 mg PO QHS muscle relaxer 09/01/20 05/18/22 galcanezumab-gnlm 120 mg/mL 120 mg SQ MONTHLY Headache 02/19/22 02/08/23 subcutaneous pen injector (Emgality Pen) sertraline 100 mg tablet (Zoloft) 100 mg PO DAILY Anxiety 02/19/22 02/08/23 solifenacin 10 mg tablet 10 mg PO DAILY bladder 02/19/22 02/08/23 trazodone 100 mg tablet 100 mg PO HS Insomnia 02/19/22 02/08/23 celecoxib 100 mg capsule (Celebrex) 100 mg PO BID Pain 02/08/23 02/08/23 hydrocodone 7.5 mg-acetaminophen 1 tab PO DAILY Pain 02/08/23 02/08/23 325 mg tablet primidone 50 mg tablet 50 mg PO BID tremors 02/08/23 02/08/23 rosuvastatin 10 mg tablet 10 mg PO DAILY Cholesterol 02/08/23 02/08/23 Previous Rx's Medication Instructions Recorded buspirone 10 mg tablet 20 mg PO BID mood #120 tabs 07/25/21 benzonatate 100 mg capsule 100 mg PO TIDP PRN Cough #30 caps 05/10/23 cefdinir 300 mg capsule 300 mg PO BID #20 caps 05/10/23 guaifenesin 600 mg tablet, 600 - 1,200 mg PO BIDP PRN 05/10/23 extended release 12 hr (Mucinex) Congestion #30 tabs methylprednisolone 4 mg tablets in 4 mg PO DIRECTED 6 days #21 tabs 05/10/23 a dose pack Allergies Allergy/AdvReac Type Severity Reaction Status Date / Time codeine Allergy Intermediate I-ITCHING Verified 05/18/22 11:41 oxycodone [From Percocet] Allergy Intermediate I-ITCHING Verified 05/18/22 11:41 propoxyphene Allergy Intermediate I-ITCHING, Verified 05/18/22 11:41 [From Darvocet-N] CRAZY amoxicillin [From Augmentin] Allergy Verified 05/18/22 11:41 clavulanic acid Allergy Verified 05/18/22 11:41 [From Augmentin] lisinopril Allergy Verified 05/18/22 11:41 PFSH [facility] Disclaimer: The information contained in this section may have been updated after the patient was seen, as this information can be updated by other users. Medical History (Updated 05/10/23 @ 19:[address] APRN) Major depressive disorder Panic disorder Posttraumatic stress disorder Social History Smoking Status: Current every day smoker alcohol intake: current counseling provided: none substance use type: denies use current occupational status: employed Travel in the last 8 weeks: None household members: spouse housing: house number of children: 2 current occupation: [employer] caffeine: Yes ROS Obtained: Yes All systems reviewed & no additional complaints except as documented Constitutional Constitutional: Reports chills and Reports fever(s) Eyes Eyes: Denies eye discharge ENT Ears, Nose, Mouth, and Throat: Reports as per HPI Cardiovascular Cardiovascular: Denies chest pain Respiratory Respiratory: Denies chest congestion and Reports cough Gastrointestinal Gastrointestingal: Reports nausea; Denies abdominal pain, constipation, cramping, diarrhea or vomiting Musculoskeletal Musculoskeletal: Denies arthralgias Integumentary/Breasts Skin/Breast: Denies rash Neurologic Neurologic: Denies paresthesias Physical Exam General General appearance: alert and in no apparent distress Eye Eye exam: Present normal appearance, PERRL and EOMI ENT ENT exam: Present mucous membranes moist and normal external ear exam Expanded ENT Exam External ear exam: Present normal external inspection TM/Canal exam: Bilateral TM: erythema and bulging Nose exam: Absent sinus tenderness Nasal speculum exam: Bilateral: normal Mouth exam: Present normal external inspection; Absent drooling Teeth exam: Present normal inspection Throat exam: Present tonsillar erythema and tonsillomegaly Neck Neck exam: Present normal inspection, full ROM and trachea midline; Absent tenderness, lymphadenopathy or thyromegaly Chest Chest inspection: Present normal inspection and symmetric chest wall rise; Absent tenderness or rash Respiratory Respiratory exam: Present normal lung sounds bilaterally; Absent respiratory distress, wheezes, stridor or accessory muscle use Cardiovascular Cardiovascular exam: Present regular rate, normal rhythm and normal heart sounds Abdominal Exam Abdominal exam: Present soft; Absent distention, tenderness, guarding, rebound or rigidity Extremities Exam Extremities exam: Present normal inspection, full ROM and normal capillary refill; Absent tenderness or calf tenderness Back Exam Back exam: Present normal inspection and full ROM; Absent tenderness Neurological Exam Neurological exam: Present alert and oriented X3 Psychiatric Psychiatric exam: Present normal affect and normal mood Skin Skin exam: Present warm, dry, intact and normal color Lymphatic Lymphatic Findings: no adenopathy Medical Decision Making Medical Records Medical records reviewed: No I reviewed the patient's medical records. [place] Inquiry Pt receiving controlled substance: No Lab Data Lab results reviewed: Yes I reviewed the patient's lab results.
[2023-05-10 19:14] VITALS: BP 127/88; PULSE 88; RESP 19; TEMP 37.2; O2SAT 98
[2023-05-10 19:20] LABS: UTC Influenza A Antigen Negative (Negative); UTC Influenza B Antigen Negative (Negative); UTC Strep Screen (Rapid) Negative (Negative)
[2023-05-10] MEDS: DEXAMETHASONE 4MG/ML 1ML VIAL 8 MG IM (19:28)
[2023-05-10] MEDS: cefTRIAXone 1GM VIAL 1 GM IM (19:28)
[2023-05-10] MEDS: LIDOCAINE 1% 5ML PF VIAL IM (19:28)
[2023-05-10 19:55] LABS: Adenovirus,PCR Not Detected (NotDetected); Coronavirus 19, PCR Not Detected (NotDetected); Coronavirus 229E Not Detected (NotDetected); Coronavirus NL63 Not Detected (NotDetected); Coronavirus OC43 Not Detected (NotDetected); Coronovirus HKU1,PCR Not Detected (NotDetected); Human Metapneumovirus Not Detected (NotDetected); Influenza A, PCR Not Detected (NotDetected); Influenza AH1, 2009 Not Detected (NotDetected); Influenza AH1, PCR Not Detected (NotDetected); Influenza AH3,PCR Not Detected (NotDetected); Influenza B, PCR Not Detected (NotDetected); Parainfluenza 1, PCR Not Detected (NotDetected); Parainfluenza 2, PCR Not Detected (NotDetected); Parainfluenza 3, PCR Not Detected (NotDetected); Parainfluenza 4, PCR Not Detected (NotDetected); Respiratory Syncytial Virus Not Detected (NotDetected); Rhinovirus/Enterovirus Not Detected (NotDetected)
== END 2023-05-10 19:51 | disposition home or self-care (01) ==
PROVIDERS: Emergency Provider Nurse Practitioner Family; PCP Nurse Practitioner Family
DX: J20.9 Acute bronchitis, unspecified (principal); J01.90 Acute sinusitis, unspecified; R50.9 Fever, unspecified; R07.0 Pain in throat; R09.81 Nasal congestion; R05.9 Cough, unspecified; R53.81 Other malaise; M79.18 Myalgia, other site; F17.210 Nicotine dependence, cigarettes, uncomplicated
CPT/HCPCS: 87632; 87635; 87804; 87880; 96372; 99212; 99214; G0463; J0696

== ENCOUNTER 2023-12-29 19:55 | Emergency (ER) | payer BC, SELFPAY ==
[2023-12-29 20:15] VITALS: BMI 37.5
--- NOTE | 2023-12-29 20:16 | XR_ITS ---
PROCEDURE INFORMATION: Exam: XR Left Knee Exam date and time: 12/29/2023 8:36 PM Age: 53 years old Clinical indication: Pain; Knee; Left; Additional info: Knee pain TECHNIQUE: Imaging protocol: Radiologic exam of the left knee. Views: 3 views. COMPARISON: CR XR ANKLE LT MIN 3V 04/18/2021 7:13 PM FINDINGS: Bones/joints: Large marginal osteophytes and significant degenerative changes involving the 3 compartments of the left knee. No evidence of acute osseous abnormality. Soft tissues: Normal. IMPRESSION: 1. Large marginal osteophytes and significant degenerative changes involving the 3 compartments of the left knee. 2. No evidence of acute osseous abnormality.
[2023-12-29 20:19] VITALS: BP 133/81; PULSE 85; RESP 20; TEMP 36.8; O2SAT 95; BMI 37.3
--- NOTE | 2023-12-29 20:31 | HMH.EDGENADL ---
Discharge Plan Disposition Patient Disposition: Home, Self-Care Chief Complaint: Extremity Injury, Lower Prescriptions Prescriptions: No Action aspirin 81 mg tablet,chewable 81 mg PO DAILY metformin 1,000 mg tablet 1,000 mg PO BID Patient Comments: pt got from another provider levothyroxine 125 mcg tablet 125 mcg PO DAILY 90 Days Qty: 90 Patient Comments: losartan 25 mg tablet 25 mg PO DAILY verapamil 40 mg tablet 40 mg PO DAILY pantoprazole 40 mg tablet,delayed release (DR/EC) 40 mg PO DAILY gabapentin 100 mg capsule 300 mg PO TID buspirone 10 mg tablet 20 mg PO BID Qty: 120 2RF sertraline [Zoloft] 100 mg tablet 100 mg PO DAILY trazodone 100 mg tablet 100 mg PO HS solifenacin 10 mg Tablet 10 mg PO DAILY Emgality Pen 120 mg/mL pen injector 120 mg SQ MONTHLY primidone 50 mg tablet 50 mg PO BID rosuvastatin 10 mg tablet 10 mg PO DAILY hydrocodone-acetaminophen 7.5-325 mg tablet 1 tab PO DAILY celecoxib [Celebrex] 100 mg Capsule 100 mg PO BID topiramate 50 MG tablet 250 mg PO QHS tizanidine 2 MG capsule 4 mg PO QHS Rx Instructions: Take up to 2 capsules @ HS. Referrals Follow up/Referrals: Inessa Carrillo APRN [Primary Care Provider] - See instructions Activity Restrictions/Add. Instructions Additional Instructions/Restrictions: Be careful traveling with crutches. Dr. Razo's information here, if you do not have resolution of pain with Tylenol Motrin over the next week with icing, contact his office for further evaluation. Call your family doctor to establish care for this visit to the emergency department and schedule follow-up within 48 hours to ensure improvement. If you have any worsening of your condition or any other concerning signs or symptoms, return to the emergency department or your primary care doctor for further evaluation. Clinical Impressions Clinical Impression: Acute pain of left knee Print Language Print Language: Kyrgyz Discharge ED Provider: Ricky Meier General Adult HPI General Chief complaint: Extremity Injury, Lower Stated complaint: left knee pain Time Seen by Provider: 12/29/23 20:12 Mode of Arrival: Ambulatory Source of Information: Patient Limitations: No Limitations Description of Symptoms (Recalled from ER Triage Doc. by RN): Pt ambulatory to ED with cc of left knee pain. Upon assessment pt is tender and has swelling. Pt states she stood up from her office chair at home when she heard a pop and then had extreme pain. Pt has a hx of tearing her meniscus. History of Present Illness HPI narrative: Please note that above description of symptoms, in this electronic medical record under categorization of recalled from ER triage doctor by RN are reflective of an initial nursing assessment, however, is not reflective of my full history and physical exam that was personally taken and clarified. Consequentially, this preceding description of symptoms, which may include the patient's categorized chief complaint in the EMR, do not reflect my personal clinical impression, and the ultimate description of history of present illness and patient stated complaints should be deferred to this section of the note. Unless stated otherwise or congruent with this section of the note, additional signs, symptoms, or incongruence should be interpreted as inaccurate with my clinical impression. Related Data Home Medications ?Medication ?Instructions ?Recorded ?Confirmed levothyroxine 125 mcg tablet 125 mcg PO DAILY thyroid 90 days 08/05/17 08/14/23 ##90 aspirin 81 mg chewable tablet 81 mg PO DAILY MIGRAINES 01/30/18 08/14/23 topiramate 50 mg tablet 250 mg PO QHS MIGRAINES 05/22/19 08/14/23 metformin 1,000 mg tablet 1,000 mg PO BID Diabetes 12/18/19 08/14/23 gabapentin 100 mg capsule 300 mg PO TID Pain 08/08/20 08/14/23 losartan 25 mg tablet 25 mg P
[2023-12-29 22:04] VITALS: BP 116/70; PULSE 71; RESP 16; TEMP 36.8; O2SAT 96
== END 2023-12-29 22:06 | disposition home or self-care (01) ==
PROVIDERS: Emergency Provider Emergency Medicine; PCP Nurse Practitioner Family
DX: M25.562 Pain in left knee (principal); F17.200 Nicotine dependence, unspecified, uncomplicated
CPT/HCPCS: 73562; 99284

== ENCOUNTER 2024-01-27 14:25 | Outpatient (CLI) | payer BC, SELFPAY ==
--- NOTE | 2024-01-27 14:26 | MR_ITS ---
FINAL REPORT TECHNIQUE: Multiplanar MR without contrast CLINICAL HISTORY: Left Knee Tear FINDINGS: Articular cartilage: There is grade IV chondromalacia of the patella. Moderate degenerative changes are seen of the tibiofemoral joint. Marrow signal: Small focus of subchondral marrow edema, likely arthritic in nature. Joint fluid: Physiologic Menisci: Normal morphology without tear Ligaments: Collateral, cruciate and patellofemoral ligaments intact Tendons: Quadriceps and patellar tendon normal IMPRESSION: Advanced degenerative changes as above. Reviewed, Interpreted and Dictated by Celeste De Guzman MD Transcribed by Lauren Jackson Authenticated and [facility]
== END 2024-01-27 23:59 | disposition home or self-care (01) ==
LOC: RAD 14:26
PROVIDERS: PCP Nurse Practitioner Family; Visit Provider Orthopaedic Surgery
DX: M25.562 Pain in left knee (principal); S83.242A Other tear of medial meniscus, current injury, left knee, initial encounter
CPT/HCPCS: 73721

== ENCOUNTER 2024-02-10 11:55 | Outpatient (RCR) | payer BC, SELFPAY | END 2024-02-10 16:47 | disposition home or self-care (01) | LOC: PT 11:55 | PROVIDERS: Visit Provider Physician Assistant | DX: M25.462 Effusion, left knee (principal) | CPT/HCPCS: 97760 ==

== ENCOUNTER 2024-03-04 12:40 | Outpatient (CLI) | payer BC, SELFPAY ==
--- NOTE | 2024-03-04 12:44 | CT_ITS ---
PROCEDURE INFORMATION: Exam: CT Left Lower Extremity, Knee Exam date and time: 03/04/2024 1:04 PM Age: 53 years old Clinical indication: Screening exam; Knee replacement, my knee protocol. Prior surgery; Surgery date: 6+ months; Surgery type: Left knee; Additional info: To make a mold for possible knee replacement TECHNIQUE: Imaging protocol: CT of the left lower extremity without contrast was performed. Exam focused on the knee. Radiation optimization: All CT scans at this facility use at least one of these dose optimization techniques: automated exposure control; mA and/or kV adjustment per patient size (includes targeted exams where dose is matched to clinical indication); or iterative reconstruction. COMPARISON: MR KNEE LT WO CON 01/27/2024 2:39 PM FINDINGS: Bones/joints: Moderate degenerative changes involving the medial knee compartment with joint space narrowing, subchondral sclerosis along with central and marginal osteophytes. Less pronounced degenerative changes of the lateral knee compartment. There are moderate degenerative changes lateral aspect of the patellofemoral joint with some flattening of the articular margins, subchondral cystic changes and marginal spurring. Additional degenerative changes involving the tibiofibular joint. No evidence of underlying fracture, malalignment or bone lesion. Soft tissues: Normal. IMPRESSION: Moderate tricompartmental osteoarthritis as discussed above.
== END 2024-03-04 23:59 | disposition home or self-care (01) ==
LOC: RAD 12:41
PROVIDERS: PCP Nurse Practitioner Family; Visit Provider Orthopaedic Surgery
DX: M25.562 Pain in left knee (principal)
CPT/HCPCS: 73700

== ENCOUNTER 2024-03-05 11:00 | Outpatient (RCR) | payer BC, SELFPAY ==
--- NOTE | 2024-02-24 16:47 | HMH.PTOPEV ---
PT Outpatient Evaluation Rehab PT Outpatient Evaluation Start: 02/24/24 15:42 Freq: Status: Active Protocol: Document 02/24/24 15:42 ANDREACHERYL (Rec: 02/24/24 16:47 HAILE [id number]) E-signed By Karol Lucas, PT Outpatient Therapy Subjective History Subjective History Pt is a 53 y/o female who presents to PT for prehab for future L TKA. Pt reports chronic L knee pain with worsening in December of this year, denies known trauma or injury. Pt reports anterior, posterior and medial knee pain . Pt reports pain is aggravated by prolonged standing, walking, getting up/ down, getting in/out of the shower and stair climbing. Pt also reports a painful pop of the knee cap with walking and that the knee often feels unstable, denies falls due to this. Pt reports swelling around the knee cap with increased activity as well. Pt reports she uses a rollator walker for long distance ambulation to assist with pain . Pt also reports she has a knee brace she wears with activity which she states helps with pain and stability. Pt had a L knee MRI on with impression of Advanced degenerative changes as above. Pt reports she is to scheduled to get a pre-op CT scan on 03/04/24. Medical History: Type II Diabetes, anxiety, major depressive disorder, panic disorder, posttraumatic stress disorder, hx L knee arthroscopic meniscus repair years ago New diagnosis of cancer in past 12 No months? Chief Complaint Pain,Stiff,Swelling Symptom Type Ache,Sharp,Dull,Burning Symptoms Relieved By Rest/Positioning,Ice,Brace/ Support,Elevation Symptoms Aggravated By Standing,Physical Activity, Twisting,Walking Current Functional Limitations Housework,Sleeping,Standing, Squatting,Walking,Stairs, Balance Symptom Description Constant but Variable Level of pain today (0-10) 5 Pain scale - at its best (0-10) 5 Pain scale - at its worst (0-10) 8 Hip/Knee Eval Gait Observation General Gait Pattern Observation Antalgic Gait,Decrease Weight Bear (L) Assistive Device Assistive Devices None / NA Palpation Tenderness left Knee Palpation Finding Tenderness Knee Palpation Overall Comment medial joint line, patella, quad mm 2/4 TTP MMT Hip Flexion Strength Grade 4- Good- Hip Abduction Strength Grade 4- Good- Hip Adduction Strength Grade 4- Good- Hip Extension Strength Grade 4- Good- Knee Extension Strength Grade 4- Good- Knee Flexion Strength Grade 4- Good- ROM Knee Extension Active Range of Motion ( 12 degrees) Knee Flexion Active Range of Motion ( 102 degrees) Knee Flexion Passive Range of Motion ( 112 degrees) Effusion joint effusion knee exam standard left Mid - Patellar Circumerential Measure ( 47 cm) Lower Extremity Functional Index Activities Today, do you or would you have any difficulty at all with: a.Any of your usual work, housework or Quite a bit of difficulty school activities b. Your usual hobbies, recreational or Extreme difficulty or unable sporting activities to perform activity c. Getting into or out of the bath Quite a bit of difficulty d. Walking between rooms Quite a bit of difficulty e. Putting on your shoes or socks Quite a bit of difficulty f. Squatting Extreme difficulty or unable to perform activity g. Lifting an object, like a bag of Quite a bit of difficulty groceries from the floor h. Performing light activities around Quite a bit of difficulty your home i. Performing heavy activities around Extreme difficulty or unable your home to perform activity j. Getting into or out of a car Quite a bit of difficulty k. Walking 2 blocks Extreme difficulty or unable to perform activity l. Walking a mile Extreme difficulty or unable to perform activity m. Going up or down 10 stairs (about 1 Extreme difficulty or unable flight of stairs) to perform activity n. Standing for 1 hour Extreme difficulty or unable to perform activity o. Sitting for 1 hour A little bit of difficulty p. Running on even ground Extreme difficulty or unable to perform activity q. Running on uneven ground Extreme difficulty or unable to perform activity r. Making sharp turns while running fast Extreme difficulty or unable to perform activity s. Hopping Extreme difficulty or unable to perform activity t. Rolling over in bed Moderate difficulty LEFI Score Lower Extremity Functional Index Score 12 Outpatient Therapy Assessment Impairments Problems/Impairmments Palpation Tenderness,Impaired Range of Motion,Impaired Strength,Impaired Gait Pattern ,Impaired Walking,Impaired Standing,Impaired Dressing, Impaired Household Care, Impaired Stair Climbing, Impaired Incline Stepping, Impaired Stepping on Uneven Surface,Impaired Squatting, Increased Edema,Subjective C/O Pain,Impaired Self Care/Self Management Prognosis Rehab Potential Good Clinical Impression Consistent with Diagnosis Yes Short Term Goals Number of Weeks 3 Increase Range of Motion Yes: Improve L knee AROM to 0- 5-110 Improve Self Care/Self Management Yes Patient to be Ind w/ HEP Yes [employer] Goals Number of Weeks 6 Increase Range of Motion Yes: Improve L knee AROM to at least 0-115 to assist with post op outcomes Increase Strength Yes: Improve LLE MMT to 4-4+/5 grossly to assist with post op outcomes Improve LEFI Score Yes: Improve score to at least 20/80 to improve overall QOL Decrease Edema Yes Decrease Subjective C/O Pain Yes: Improve pain at worst to 6/10 or less to improve overall QOL Patient to be Ind w/ Advanced HEP Yes Outpatient Therapy Plan of Care Treatment Plan May Include Therapeutic Exercise Including Home Yes Exercise Program Manual Therapy Techniques Yes Neuromuscular Re-education Yes Therapeutic Activities to Return to Yes Previous Functional/Work Level Gait Training Yes ADL/Self Care Education Yes Dry Needling Yes Thermal Modalities Yes Electrical Stimulation Yes Ultrasound/Phonophoresis Yes Iontophoresis Yes Orthotics/Bracing/Splinting Yes Vasopneumatic Compression Pump Yes Massage Yes Eval/Re-Eval Yes Frequency Times per week 2 Duration Number of Weeks 4-6 Addendums This patient is a candidate for social No or vocational rehab? Patient/Guardian verbally acknowledges Yes understanding of treatment program and consents to further treatment? Patient/Guardian verbally acknowledges Yes understanding of diagnosis, prognosis and goals for treatment? Eval Complexity PT Charges 72055 - Low Complexity Shoulder/Elbow Eval Shoulder Objective Measurements Elbow Objective Measurements PHYSICIAN CERTIFICATION: I certify the specified therapy services for Kallie Barroso are required, authorized, and reviewed every 30 days.
== END 2024-03-05 23:59 | disposition home or self-care (01) ==
LOC: PT 11:00
PROVIDERS: Visit Provider Orthopaedic Surgery
DX: M25.562 Pain in left knee (principal); M25.662 Stiffness of left knee, not elsewhere classified; M17.12 Unilateral primary osteoarthritis, left knee
CPT/HCPCS: 97014; 97110; 97163; 97530; G0283

== ENCOUNTER 2024-03-05 12:03 | Outpatient (CLI) | payer BC, SELFPAY | END 2024-03-05 23:59 | disposition home or self-care (01) | LOC: RAD 12:05 | PROVIDERS: PCP Nurse Practitioner Family; Visit Provider Orthopaedic Surgery | DX: M25.562 Pain in left knee (principal) ==

== ENCOUNTER 2024-03-11 14:36 | Outpatient (CLI) | payer BC, SELFPAY ==
--- NOTE | 2024-03-11 15:10 | ECG_ITS ---
APPROVED REPORT Exam: Resting ECG HR:69 bpm ECG Measurements Heart Rate 69 AXES MS 198 P 59 QRSd 103 QRS -52 QT 392 T 61 QTc 411 Conclusion SINUS RHYTHM LOW QRS VOLTAGE IN PRECORDIAL LEADS [QRS DEFLECTION < 1.0 mV IN CHEST LEADS] LEFT ANTERIOR FASCICULAR BLOCK [QRS AXIS <= -45, QR IN I, RS IN II] Late R wave progression - old finding ABNORMAL ECG UNCONFIRMED REPORT Electronically signed by : Tuan Pierce MD 03/15/2024 12:52:59
[2024-03-11 15:26] VITALS: BMI 38.5
[2024-03-11 16:05] LABS: Basophils # 0.1 K/mm3 (0-0.2); Basophils % 0.6 % (0.1-2.0); Eosinophils # 0.1 K/mm3 (0.0-0.4); Eosinophils % 1.3 % (0.1-12.0); Hematocrit 35.9 % (37.0-47.0); Hemoglobin 12.8 g/dL (12.2-16.2); Lymphocytes # 2.5 K/mm3 (0.7-4.5); Lymphocytes % 27.5 % (10-50); Mean Corpuscular HGB Conc 35.7 g/dL (31.8-35.4); Mean Corpuscular Hemoglobin 29.1 pg (27.0-31.2); Mean Corpuscular Volume 81.5 fl (81-99); Mean Platelet Volume 8.1 fl (7.4-10.4); Monocytes # 0.4 K/mm3 (0.1-1.0); Monocytes % 4.6 % (1.7-9.3); Neutrophils % 65.9 % (37.0-80.0); Platelet Count 283 K/mm3 (142-424); Red Blood Count 4.41 M/mm3 (4.20-5.40); Red Cell Distribution Width 14.3 % (11.5-17.5); White Blood Count 9.1 K/mm3 (4.8-10.8)
[2024-03-11 16:09] LABS: Chloride 105 mmol/L (98-107); Potassium 3.5 mmoL/L (3.5-5.1); Sodium 138 mmol/L (136-145)
[2024-03-11 16:12] LABS: Blood Urea Nitrogen 12 mg/dl (7-17); Creatinine Clearance Estimated 187 mL/min (50-200); Estimated Glomerular Filt Rate 87 ml/min (>60); GFR (African American) 106 ML/MIN (>60)
[2024-03-11 16:13] LABS: Anion Gap 11.5 mEq/L (5-15); Calcium 8.7 mg/dl (8.4-10.2); Carbon Dioxide 25 mmol/L (22.0-30.0); Glucose 114 mg/dl (74-100)
== END 2024-03-11 23:59 | disposition home or self-care (01) ==
LOC: PREOP 14:36
PROVIDERS: Nurse Anesthetist, Certified Registered; PCP Nurse Practitioner Family; Visit Provider Orthopaedic Surgery
DX: I44.4 Left anterior fascicular block (principal); R94.31 Abnormal electrocardiogram [ECG] [EKG]; Z01.810 Encounter for preprocedural cardiovascular examination; Z01.812 Encounter for preprocedural laboratory examination
CPT/HCPCS: 80048; 85025; 93005

== ENCOUNTER 2024-03-16 10:54 | Day surgery (SDC) | payer BC, SELFPAY ==
[2024-03-11 14:54] VITALS: BMI 38.5
[2024-03-16] VITALS (11 sets, daily range): BP systolic 127–158; BP diastolic 73–92; PULSE 57–90; RESP 12–18; TEMP 36.4–43; O2SAT 92–97
[2024-03-16 11:36] LABS: POC Glucose,Bedside 89 (70-110)
--- NOTE | 2024-03-16 11:40 | P.PNANES_ITS ---
[facility] Disclaimer: The information contained in this section may have been updated after the patient was seen, as this information can be updated by other users. Medical History Anxiety Diabetes Major depressive disorder Panic disorder Posttraumatic stress disorder Surgical History History of tubal ligation History of rectal sphincterotomy History of sinus surgery History of cholecystectomy History of tonsillectomy and adenoidectomy History of bladder surgery History of hysterectomy History of eye surgery History of arthroscopy of knee Family History Other Family history of atrial fibrillation Family history of diabetes mellitus Family history of hypertension Social History Smoking Status: Current every day smoker alcohol intake: never counseling provided: none substance use type: denies use current occupational status: employed and unemployed Travel in the last 8 weeks: None household members: spouse housing: house number of children: 2 current occupation: [employer] caffeine: Yes [facility] Anesthesia Checklist Patient Identification Patient Identification: Arm Band and Verbal (Name & ) Structural Data Admitted From: Home Planned Operative Procedure/s: Knee arthroscopy Consent for Planned Operative Procedure(s) Verified: Yes Verified Documents: Surgical Consent and History and Physical NPO Status Verified Time NPO: 00:00 Additional verifications Anesthesia Reactions: No Hx Blood Transfusions: No Airway Assessment Mallampati Score:: Class II C-Spine Mobility Assessed: Yes TMJ Mobility Assessed: Yes Dentition: Good Dentition Neurological Assessment Level of Consciousness: Awake Hx Seizures: No Numbness or tingling in extremities: No Anesthesia Plan Anesthesia Risk discussed: Yes Anesthesia Plan: Verified ASA Class: III Anesthesia Type: General
[2024-03-16] MEDS: CLINDAMYCIN PHOSPHATE/D5W 900 MG/50 ML PIGGYBACK 100 MG IV (12:00)
[2024-03-16] MEDS: BUPIVACAINE 0.25% 30ML VIAL 75 MG (12:24)
[2024-03-16] MEDS: RINGERS SOLUTION,LACTATED 6,000 ML 200 ML IR (12:25)
--- NOTE | 2024-03-16 12:48 | EXP.OP.NOTE ---
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 Left knee grade IV chondromalacia most medial aspect of the medial femoral condyle Left knee synovitis and scarring causing impingement medial joint line Procedure performed:: Left knee arthroscopy partial medial meniscectomy Left knee arthroscopy chondroplasty trochlea with removal of loose leela cartilage Left knee arthroscopy with synovectomy and debridement medial joint line Surgeon:: Calvin Razo DO Optical Technician(s):: Ruben GREGORY CHARGE AUDITOR:: Lulu Viramontes Anesthesia: GETA Estimated blood loss (mL): 0 Operative findings:: There was significant grade IV chondromalacia patella and trochlea but also large impinging soft tissue medial joint line there was evidence of grade IV chondromalacia most medial aspect medial femoral condyle with impingement soft tissue degenerative meniscus tear posterior horn body softening grade III chondromalacia lateral joint line with no meniscus tear no loose leela cartilage Operative note:: Patient was identified preoperatively. Left knee marked with yes and my initials. Transported operative suite. Placed upon operating bed. General anesthesia was administered and airway was secured. Left lower extremities and prepped and draped in normal sterile fashion. Once prepped and draped final operative timeout performed to identify proper patient procedure and extremity. Everyone involved in the case agreed. There were no counter indications to beginning. She did receive preoperative antibiotics. Marking pen was used to marc the bony landmarks of the knee and standard portal sites. Esmarch was used to exsanguinate the extremity and pneumatic tourniquet was inflated to 300 mmHg. Skin knife is used to incise standard anterior lateral portal and blunt with trocar was placed in patellofemoral joint. This was exchanged with a camera. Diagnostic arthroscopy began. Upon immediate enter of the patellofemoral joint there was significant synovitis and large soft tissue impingement on the medial aspect of the medial gutter. I swept directly into the medial joint line where the anterior medial portal was made and switch with a probe. There was tearing and degenerative tearing of the posterior horn and body of the medial meniscus. Using a combination of straight biter and sucker shaver partial medial meniscectomy was performed back to stable rim. Within the medial joint line the most medial aspect of the medial femoral condyle had grade IV chondromalacia. There was significant soft tissue impingement as well in the medial gutter with synovitis she is not a electrocautery and sucker shaver synovectomy and debridement of scar tissue was performed the medial gutter. Attention was brought to the intercondylar notch the ACL was seen and intact. Tensions brought to the lateral joint line within the lateral joint line the lateral cartilage was softened with a slight fissuring of the weightbearing surface on the lateral femoral condyle the lateral meniscus was intact lateral tibial cartilage softening grade II chondromalacia. Attention is brought back into the lateral gutters there is no pathology seen there and back in the patellofemoral joint. Within the patellofemoral joint there is grade III chondromalacia trochlea grade IV chondromalacia patella there is loose leela cartilage of the trochlea which was debrided with a sucker shaver. Patella did track within the trochlea. There is inferior osteophyte in the distal aspect of the patella. Chondroplasty performed of the trochlea synovectomy performed in the patellofemoral joint. No further pathology was seen. Cameras removed joint was drained. Local anesthesia was infiltrated to the portal sites. Skin closed with nylon stitch. Sterile dressing placed from toe to thigh. Patient waken anesthesia taken recovery stable condition. Condition: stable Disposition: PACU Complications:: None apparent
--- NOTE | 2024-03-16 12:57 | P.PNANES_ITS ---
[facility] Anesthesia Record Part I Anesthesia Record I Intake, IV Amount: 800 Hydration: Adequate Estimated blood loss (mL): 10 Urine output (mL): 0 Blood Pressure: 158/92 SaO2: 93 Pulse Rate: 90 Airway Patency: Patent Respiratory Rate: 12 Temperature: 97.6 F Patient is:: Awake Stable to PACU at:: 12:55
[2024-03-16] MEDS: HYDROMORPHONE 2MG/ML SYRINGE 0.5 MG IV (13:17)
[2024-03-16 13:34] LABS: POC Glucose,Bedside 78 (70-110)
--- NOTE | 2024-03-18 10:05 | P.PNANES_ITS ---
[facility] Anesthesia Record Part II Anesthesia Record Part II Discharge Time: 13:25 Destination: Surgical Day Care (OP Surgery) PACU nurse assessment reviewed?: Yes Patient Condition:: Good Anesthesia Complications:: None Swallowing reflex intact?: Yes Airway Patency: Patent Cyanosis?: No Blood Pressure: 139/74 SaO2: 95 Respiratory Rate: 16 Pulse Rate: 62 Temperature: 97.7 F Mental Status: Alert & Oriented Pain level:: 3 Nausea and/or vomitting:: None Intake, IV Amount: 0 Hydration: Adequate
[2024-03-18 10:06] VITALS: BP 139/74; PULSE 62; RESP 16; TEMP 36.5; O2SAT 95
== END 2024-03-16 14:22 | disposition home or self-care (01) ==
PROVIDERS: PCP Nurse Practitioner Family; Visit Provider Orthopaedic Surgery
PROC: (CPT 29870; principal; 2024-03-16 12:30)
DX: S83.242A Other tear of medial meniscus, current injury, left knee, initial encounter (principal); M94.262 Chondromalacia, left knee; M65.98 Unspecified synovitis and tenosynovitis, other site
CPT/HCPCS: 29881; 82962; 96374; J0736; J1100; J1171; J2250; J3010

== ENCOUNTER 2024-03-31 08:44 | Outpatient (CLI) | payer BC, SELFPAY ==
--- NOTE | 2024-03-31 09:01 | XR_ITS ---
FINAL REPORT CLINICAL HISTORY: 2 weeks post op Lt knee FINDINGS: AP, lateral and oblique views of the left knee were obtained. There is no prior exam for comparison. There is no acute osseous abnormality of the left knee. There is degenerative joint disease, most pronounced in the patellofemoral compartment. The soft tissues are normal. Likely small joint effusion is identified. IMPRESSION: Degenerative joint disease with small joint effusion. Reviewed, Interpreted and Dictated by Kallie Panchal MD Transcribed by Cheri Kingston Authenticated and [facility]
== END 2024-03-31 23:59 | disposition home or self-care (01) ==
LOC: RAD 08:45
PROVIDERS: PCP Nurse Practitioner Family; Visit Provider Orthopaedic Surgery
DX: Z98.890 Other specified postprocedural states (principal); M17.12 Unilateral primary osteoarthritis, left knee; M23.92 Unspecified internal derangement of left knee
CPT/HCPCS: 73562

== ENCOUNTER 2024-09-03 14:53 | Outpatient (CLI) | payer OTHER, SELFPAY ==
--- NOTE | 2024-09-03 15:04 | MM_ITS ---
PROCEDURE INFORMATION: Exam: MG bilateral Diagnostic Breast Tomosynthesis Exam date and time: 09/03/2024 3:08 PM Age: 53 years old Clinical indication: Left breast palpable lumps TECHNIQUE: Imaging protocol: Bilateral Diagnostic tomosynthesis and 2D mammography including computer-aided detection (CAD) when performed. Unilateral or bilateral exam. COMPARISON: 1. MG SCBI MM Dig screening mamm BI w/CAD 12/20/2017 5:02 PM 2. MG DMSB DIG MAMM-SCREEN RAMON W/CAD 06/29/2016 5:09 PM FINDINGS: MAMMOGRAPHY: Breast composition: The breasts are almost entirely fatty. Breast mammogram findings: There is no stellate mass, architectural distortion or suspicious microcalcifications in either breast to suggest malignancy. No skin thickening or axillary adenopathy. 2 skin markers were placed over areas of palpable concern in the left medial breast. There are no suspicious findings on routine views or spot compression. IMPRESSION: Patient to return for targeted left breast ultrasound for full evaluation of the patient's complaint of 2 palpable abnormalities ASSESSMENT: BI-RADS Category 0: Incomplete- Need Additional Imaging Evaluation
== END 2024-09-03 23:59 | disposition home or self-care (01) ==
LOC: RAD 14:54
PROVIDERS: PCP Nurse Practitioner Family; Visit Provider Nurse Practitioner Family
DX: N63.20 Unspecified lump in the left breast, unspecified quadrant (principal)
CPT/HCPCS: 77062; 77066; G0279

== ENCOUNTER 2024-10-09 12:46 | Outpatient (CLI) | payer OTHER, SELFPAY ==
--- OUTSIDE RECORDS SUMMARY | 2024-10-09 12:49 | XMS_ITS | Clinical Summary ---
Author Organization [employer] Address [address] [place] [address] Care Team Providers Care Design And Sales Consultant Name Role Phone Unavailable Primary Care Provider Unavailabl e Social History Tobacco Use Types Packs/Day Years Used Date Smoking Tobacco: Never Assessed Comments Unknown Sex and Gender Information Value Date Recorded Sex Assigned at Female 10/31/2021 5:43 PM CDT Legal Sex Female 5:43 PM CDT Gender Identity Female 10/31/2021 5:43 PM CDT Sexual Orientation Not on file Plan of Treatment Not on file
--- OUTSIDE RECORDS SUMMARY | 2024-10-09 12:49 | XMS_ITS | Clinical Summary ---
Author Organization [facility] Address [address] [place] [address] Care Team Providers Care Plodder Operator Name Role Phone Gasper Pierre MD Primary Care Provider [phone] Allergies Active Allergy Reactions Criticality Noted Date Comments Atorvastatin Other - please document in the comment field Low 07/07/2023 cramp Amoxicillin-Pot Clavulanate Rash Low 07/07/2023 Codeine Itching Medium 02/19/2012 Pt confirmed that Houston is OK for her take Codeine Hives Medium 07/07/2023 Lisinopril Cough Low 12/09/2019 Other Other - please document in the comment field Medium 02/19/2012 Adhesives- skin burn Oxycodone-Acetaminophen Itching Medium 12/31/2017 Started in tongue and spread to face, wanted to rip tongue out per patient Oxycodone-Acetaminophen Hives Medium 07/07/2023 Propoxyphene Itching Medium 01/02/2018 Silver Other - please document in the comment field Low 12/07/2020 Skin burn Medications aspirin 81 MG EC tablet Take 1 tablet by mouth Daily. 8 Active atorvastatin (Lipitor) 40 MG tablet Take 1 tablet by mouth Every Night. 1 Active Blood Glucose Monitoring Suppl (True Metrix Meter) w/Device kit 0 Active busPIRone (Buspar) 10 MG tablet Take 20 mg by mouth 2 (two) times a day. Active fluticasone (Flonase) 50 MCG/ACT nasal spray 9 Active gabapentin (Neurontin) 300 MG capsule 1 PO TID 1 Active hydrOXYzine pamoate (Vistaril) 25 MG capsule 0 Active ibuprofen 800 MG tablet 9 Active levothyroxine (Synthroid, Levoxyl) 125 MCG tablet TAKE 1 TABLET DAILY. 9 Active losartan (Cozaar) 25 MG tablet Take 1 tablet by mouth Daily. 1 Active Melatonin 5 MG tablet tablet Take 5 mg by mouth At Night As Needed. Active metFORMIN (Glucophage) 1000 MG tablet TAKE ONE TABLET BY MOUTH 2 TIMES A DAY 1 Active naproxen (Naprosyn) 500 MG tablet Take 1 tablet by mouth 2 (Two) Times a Day With Meals. 1 Active pantoprazole (ProtoNix) 40 MG EC tablet Take 1 tablet by mouth Daily. 1 Active tiZANidine (Zanaflex) 2 MG tablet 9 Active sertraline (Zoloft) 50 MG tablet 1 Active topiramate (Topamax) 200 MG tablet Take 200 mg by mouth 2 (two) times a day. 9 Active traMADol (Ultram) 50 MG tablet Take 50 mg by mouth 2 (Two) Times a Day. Active Ubrogepant 50 MG tablet Take 1 tab at onset of migraine, may repeat once in 2 hours 1 Active diazePAM (Valium) 5 MG tablet Take 0.5 tablets (2.5 mg total) by mouth at night if needed for anxiety. Take for anal spasm at bedtime PRN. 5 tablet 1 Active Additional Information Patient not taking.Reported on 01/30/2024 traZODone (Desyrel) 100 MG tablet 1 Active primidone (Mysoline) 50 MG tablet Take 4 tablets (200 mg) by mouth 2 (two) times a day. 3 Active rosuvastatin (Crestor) 10 MG tablet Take by mouth. 3 Active albuterol 108 (90 Base) MCG/ACT inhaler Inhale 2 puffs 1 (one) time each day. 4 Active celecoxib (CeleBREX) 100 MG capsule Take 1 capsule (100 mg) by mouth. 3 Active fexofenadine (Dalia) 180 MG tablet Take 1 tablet (180 mg) by mouth. 4 Active HYDROcodone-dandy taminophen (Houston) 7.5-325 MG tablet Take by mouth. 3 Active lidocaine (Lidoderm) 5 % patch 4 Active methocarbamol (Robaxin) 750 MG tablet Take 1 tablet (750 mg) by mouth. 4 Active montelukast (Singulair) 10 MG tablet Take 1 tablet (10 mg) by mouth. 4 Active oxybutynin XL (Ditropan-XL) 10 MG 24 hr tablet Take 1 tablet (10 mg) by mouth 1 (one) time each day. 4 Active Active Problems Problem Noted Date Diagnosed Date PONV (postoperative nausea and vomiting) 021 Motion sickness 11/21/2020 Gastroesophageal reflux disease 11/21/2020 Hx of histoplasmosis 11/21/2020 Anal fissure 11/08/2020 Overview (11/08/2020): Added automatically from request for surgery [id number] Paresthesia 07/22/2020 Vitamin B12 deficiency 07/22/2020 Hypercholesterolemia 05/23/2020 Essential hypertension 12/04/2019 Type 2 diabetes mellitus wit hout complication, without long-term current use of insulin 12/04/2019 Hemiplegic migraine without status migrainosus, not intractable 11/27/2019 Migraine without aura and wi thout status migrainosus, not intractable 11/27/2019 Chronic midline low back pain without sciatica 0 10/30/2019 Essential tremor 10/30/2019 Recurrent major depressive disorder, in full rem ission 10/30/2019 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 Anxiety 11/07/2018 IBS (irritable bowel syndrome) 11/07/2018 Obesity 11/07/2018 CORNEL (obstructive sleep apnea) 11/07/2018 Overview (12/07/2020): Cannot tolerate the masks Cannot tolerate the masks Tremors of nervous system 11/07/2018 Hypothyroidism 01/02/2018 Palpitations 01/02/2018 Immunizations Immunization Administration Dates Next Due DTP 10/11/2011 HepB-CpG 12/07/2022,11/08/2022 Influenza, Unspecified 01/31/2022 MMR 10/15/2003 PPD Skin Test (TB Skin Test) 10/13/2003,08/06/19 04,07/13/2003 Pfizer-BioHireArt COVID-19 Vac cine (Purple Cap) 12+ 01/10/2021 Pneumococcal 20-kuldeep Conj Vaccine 01/04/2022 Zoster, Recombinant 01/04/2022 Family History Medical History Relation Name Comments Diabetes Father Other cancer Father Atrial fibrillation Mother Diabetes Other Anesthesia problems Neg Hx Malig Hyperthermia Neg Hx Relation Name Status Comments Father Mother Other Social History Tobacco Use Types Packs/Day Years Used Date Smoking Tobacco: Former Cigarettes Q uit: 01/04/2019 Smokeless Tobacco: Former Comments:vapes Alcohol Use Standard Drinks/Week Comments Not Currently 0 (1 standard drink = 0.6 oz pur e alcohol) socially PHQ-2 Answer Date Recorded Patient Health Questionnaire-2 Score 0 12/27/2020 Comments No Sex and Gender Information Value Date Recorded Sex Assigned at Not on file Legal Sex Female 8:51 PM EDT Gender Identity Not on file Sexual Orientation Not on file Last Filed Vital Signs Vital Sign Reading Time Taken Comments Blood Pressure 126/85 01/30/2024 8:29 AM EDT Pulse 85 01/30/2024 8:29 AM EDT Temperature 36.8 C (98.2 F) 07/07/2023 10:59 PM EST Respiratory Rate 18 07/07/2023 10:59 PM EST Oxygen Saturation 96% 01/30/2024 8:29 AM EDT Inhaled Oxygen Concentration - - Weight 129 kg (284 lb) 01/30/2024 8:29 AM EDT Height 182.9 cm (6') 01/30/2024 8:29 AM EDT Body Mass Index 38.52 01/30/2024 8:29 AM EDT Plan of Treatment Health Maintenance Due Date Last Done Comments [facility]-HIV Screening 1969 [facility]-/Child/Adol SDOH Screenings 1969 Diabetes: Dental Exam 09/25/1979 [facility]- SDOH Screenings 09/25/1987 [facility]-Adult SDOH Screenings 09/25/1987 CT Colonography 2014 Colonoscopy 2014 FIT-DNA 2014 FIT 2014 FOBT 2014 Sigmoidoscopy 2014 [facility]-Colorectal Cancer Screening 2014 [facility]-DTaP,Tdap,and Td Vaccines (2 - Tdap) 10/10/2021 10/11/2011 [facility]-Depression Screening 12/27/2021 12/27/2020 [facility]-Diabetes: Hemoglobin A1C 02/05/202209/2021, 03/27/2021, 11/29/2020, Additional history exists [facility]-Zoster Vaccines (2 of 2) 03/01/2022 01/04/2022 [id number]-XLLNP-28 Vaccine ( - season) 2024 01/10/2021, 12/19/2020 [facility]-Breast Cancer Screening 12/18/202412/04, 12/18/2022, 10/23/2021, Additional history exists [facility]-Influenza Vaccine (Season Ended) 2025 01/31/2022 [facility]-Hepatitis C Screening Completed 10/30/2019 [facility]-Pneumococcal Vaccine: 50+ Years Completed 01/04/2022 [facility]-Hepatitis B Vaccines Completed 12/07/2022, 0710/2022 [facility]-Obesity Intervention Completed 01/30/2024 HPV Vaccines Aged Out No longer eligi ble based on patient's age to complete this topic [facility]-HIB Vaccines Aged Out No longer e ligible based on patient's age to complete this topic [facility]-Hepatitis A Vaccines Aged Out No longer eligible based on patient's age to complete this topic [facility]-IPV Vaccines Aged Out No longer e ligible based on patient's age to complete this topic [facility]-Rotavirus Vaccines Aged Out No lo nger eligible based on patient's age to complete this topic Insurance ANTHEM ANTHEM ANTHEM ANTHEM Care Teams Plodder Operator Relationship Specialty Start Date End Date Gasper Pierre MD [facility] [address] [place] [address] PCP - General Family Medicine 11/08/20
--- OUTSIDE RECORDS SUMMARY | 2024-10-09 12:49 | XMS_ITS | Referral Summary ---
Author Organization [employer] Address [address] [place] [address] Care Team Providers Care Head Mva Reactor Operator Name Role Phone Unavailable Primary Care Provider [...]
--- OUTSIDE RECORDS SUMMARY | 2024-10-09 12:49 | XMS_ITS | Encounter Summary ---
Author Organization [employer] Address [address] [place] [address] Care Team Providers Care Cnc Mill Programmer Name Role Phone Unavailable Primary Care Provider Unavailabl e Encounter Details Date Type Department Care Team (Late st Contact Info) Description 02/02/2019 Transcribed Document [facility] Family Medicine [address] [place] [address] ProviderMaksim MD [facility] [address] Social History Tobacco Use Types Packs/Day Years Used Date Smoking Tobacco: Never Assessed Comments Unknown Sex and Gender Information Value Date Recorded Sex Assigned at Female 10/31/2021 5:43 PM CDT Legal Sex Female 5:43 PM CDT Gender Identity Female 10/31/2021 5:43 PM CDT Sexual Orientation Not on file documented as of this encounter Miscellaneous Notes * Cerner Conversion Note - Historical ProviderMD - 02/02/2019 4:37 PM CDT DATE OF STUDY: 12/23/2018 TECHNETIUM PYROPHOSPHATE AMYLOID SCAN INDICATIONS: with LVH. PROCEDURE: Patient was brought to the cardiac catheterization laboratory, where she was injected with 20 mCi of technetium pyrophosphate intravenously. Planar images were performed with 1 hour and 3 hour delay. Heart to lung ratios were obtained. IMPRESSION: 1. Uniform accumulation of pyrophosphate throughout the myocardium that appears to be of moderate intensity, highly suspicious for amyloid. 2. The heart lung ratio is 1.16 making it equivocal. OVERALL IMPRESSION: Still suspicious for cardiac TTR amyloid. PLAN: Cardiac MRI. Tracie Barragan M.D. Dict: 02/02/2019 16:37:39 Trans: 02/02/2019 18:00:49 CC1: Tracie Barragan M.D. Electronically signed by [facility] Conversion Plant Operator/Shift Supervisor Cerner at 08/23/2022 9:12 AM CDT documented in this encounter Plan of Treatment Not on file documented as of this encounter Visit Diagnoses Not on filedocumented in this encounter
--- OUTSIDE RECORDS SUMMARY | 2024-10-09 12:49 | XMS_ITS | Encounter Summary ---
Author Organization [facility] Address [address] [place] [address] Care Team Providers Care Acute Care Physical Therapist Name Role Phone Gasper Pierre MD Primary Care Provider [phone] Reason for Referral * Consultation (Routine) - Closed Specialty Diagnoses / Procedures Referred By Nader whelan Referred To Contact Neurology Diagnoses Tremor, essential So Cabrera APRN [id number] [facility] [address] [place] [address] Phone: tel: fax: Referral ID Status Reason Start Date Expiration Date V isits Requested Visits Authorized [id number] Closed Specialty Services Required 06/18/2023 12/17/2024 1 1 Encounter Details Date Type Department Care Team (Late st Contact Info) Description 06/18/2023 Community Orders Community Practice [address] [place] [address] So Cabrera APRN [address] [facility] [address] [place] [id number] Tremor, essential (Primary Dx) Social History Tobacco Use Types Packs/Day Years Used Date Smoking Tobacco: Former Cigarettes Q uit: 01/04/2019 Smokeless Tobacco: Former Alcohol Use Standard Drinks/Week Comments Not Currently 0 (1 standard drink = 0.6 oz pur e alcohol) socially PHQ-2 Answer Date Recorded Patient Health Questionnaire-2 Score 0 12/27/2020 Comments No Sex and Gender Information Value Date Recorded Sex Assigned at Not on file Legal Sex Female 8:51 PM EDT Gender Identity Not on file Sexual Orientation Not on file documented as of this encounter Plan of Treatment Scheduled Referrals Name Type Priority Associated Diagnoses Order Schedule Ambulatory referral to Neurology Outpatient Referral Routine Tremor, essential Expected: 06/18/2023 (Approximate), Expires: 12/16/2024 documented as of this encounter Visit Diagnoses Diagnosis Tremor, essential- Primary Essential and other specified forms of tremor documented in this encounter Additional Health Concerns Assessment Noted Time A fall risk assessment has been complete d for the patient 12/27/2020 1:58 PM EDT documented as of this encounter Care Teams Acute Care Physical Therapist Relationship Specialty Start Date End Date Gasper Pierre MD [address] [place] [address] PCP - General Family Medicine 11/08/20 documented as of this encounter
--- NOTE | 2024-10-09 12:52 | US_ITS ---
PROCEDURE INFORMATION: Exam: US Left Breast, Complete Exam date and time: 10/09/2024 1:10 PM Age: 54 years old Clinical indication: Palpable abnormalities in the left breast TECHNIQUE: Imaging protocol: Complete ultrasound of all four quadrants of the left breast and the retroareolar regions, including ultrasound of the axilla when performed. COMPARISON: MG MM DIG MAMM BI DX W/CAD 09/03/2024 3:08 PM FINDINGS: ULTRASOUND: Breast ultrasound findings: Sonographic images of the left breast including the retroareolar region, all 4 quadrants and the axilla do not demonstrate any solid masses. Incidental 0.3 cm cyst in the upper outer quadrant. No suspicious findings with specific regard to the lower inner quadrant where the patient reports 2 palpable abnormalities. Predominantly adipose tissue is seen. No architectural distortion or acoustical shadowing. No skin thickening or axillary adenopathy. Mammogram performed 09/03/2024 did not demonstrate any suspicious findings IMPRESSION: Palpable abnormalities in the left breast correspond both mammographically and sonographically to predominantly adipose tissue. There is no mammographic evidence of malignancy. Further evaluation of a palpable abnormality should be based on clinical grounds regardless of radiographic findings or lack thereof. Annual mammographic screening is recommended unless otherwise clinically indicated. ASSESSMENT: BI-RADS Category 1: Negative.
== END 2024-10-09 23:59 | disposition home or self-care (01) ==
LOC: RAD 12:47
PROVIDERS: PCP Nurse Practitioner Family; Visit Provider Nurse Practitioner Family
DX: N60.02 Solitary cyst of left breast (principal); R92.313 Mammographic fatty tissue density, bilateral breasts; R92.8 Other abnormal and inconclusive findings on diagnostic imaging of breast
CPT/HCPCS: 76641

== ENCOUNTER 2024-12-16 11:55 | Outpatient (CLI) | payer BC, SELFPAY ==
--- OUTSIDE RECORDS SUMMARY | 2024-12-16 06:00 | XMS_ITS | Encounter Summary ---
Author Name [facility] [place] [facility] [place] Address [address] [place] [address] Care Team Providers Care Animal Control Officer Name Role Phone JOEY VAN Primary Care Provider Unavailab le Insurance Providers: All historical and current Section Date Range: From patient's date of to the date document was created. This section includes the names of all active insurance providers for the patient. Insurance Provider Type of Coverage Plan Name Start of Policy Coverage End of Policy Coverage Group Number Member ID Insurance Provider's Telephone Number Policy Harvey's Name Patient's Relationship to Policy Harvey LILAMARK ([id number]) PRESCRIPT ION [id number] May 06, 2018 [id number]OUSE Selected Encounter This section includes the information on [place] at [place] for the Encounter. Date/Time Encounter Type Encounter Description Reason Provider Source Dec 16, 2024 10:00 AM PSYTX W PT 30 MINUTES [facility] - IND ICD-10-CM F43.12 Post-traumatic stress disorder, chronic LETI OBANDO IHE Encounter Template Text not used by [place] Assessments - Encounter Diagnoses This section includes the primary and secondary diagnoses documented for the Encounter. Date/Time Primary/Secondary Diagnosis Diagnosis Name Provider Source Dec 16, 2024 03:27 PM PRIMARY Post-traumatic stress disorder, chronic [facility] Plan of Treatment: Future Appointments (+ 6 months) and Future Tests (+/- 45 days) The Plan of Treatment section includes future care [facility] for the [facility] [place] [facility] This section includes future appointments and future orders which are active, pending or scheduled. Future Appointments This section includes appointments that were scheduled to occur 6 months from the date of the Encounter, up to a maximum of 20 appointments. The data comes from all [facility]. Appointment Date/Time Appointment Type Appointme nt Facility Name Dec 21, 2024 10:00 AM AMBULATORY - [facility]AB [facility] Dec 28, 2024 09:00 AM AMBULATORY - [facility]AB [facility]ICIN E [facility] Dec 30, 2024 09:00 AM AMBULATORY - PSYCHIATRY [facility] Jan 05, 2025 10:00 AM AMBULATORY - NEUROLOGY [facility] Jan 07, 2025 07:00 AM AMBULATORY - NONE [facility] Jan 07, 2025 08:00 AM AMBULATORY - NONE [facility] Jan 11, 2025 09:00 AM AMBULATORY - REHAB MEDICIN E [facility] Jan 18, 2025 09:00 AM AMBULATORY - REHAB MEDICIN E [facility] Jan 27, 2025 09:00 AM AMBULATORY - PSYCHIATRY [facility] Feb 22, 2025 09:30 AM AMBULATORY - REHAB MEDICIN E [facility] Mar 01, 2025 09:00 AM AMBULATORY - REHAB MEDICIN E [facility] May 10, 2025 09:00 AM [facility] May 10, 2025 09:30 AM AMBULATORY - NONE [facility] Encounter Notes: All associated encounter notes This section contains the clinical notes associated to the Encounter. Date/Time Encounter Note(s) Provider Source Dec 16, 2024 03:23 PM MENTAL HEALTH NOTE : LOCAL TITLE: IP PSYCHOTHERAPY NOTE STANDARD TITLE: MENTAL HEALTH NOTE DATE OF NOTE: DEC 16, 2024@15:23 ENTRY DATE: DEC 16, 2024@15:23:32 AUTHOR: LETICIA GODINEZ EXP COSIGNER: KINDER,JOSE L URGENCY: STATUS: COMPLETED Date of Session: DEC 16, 2024 Duration of Session: 30 minutes Session Number: 4 Diagnosis Addressed During Session: PTSD, Chronic Session [facility]: [facility] This session was provided via telehealth as [place]cliff agreed to be seen via video services for this scheduled individual therapy appointment. confirmed that they are in a private and safe place for this session. [place]cliff's phone number: Present location address: Ms. JOS HERRERA [address] [place] [address] [place] [address] Emergency Contact name and phone number: PEG HERRERA Reason for Session: Integrative psychotherapy for PTSD Rationale for Duration of Session: Session duration required for fidelity to EBP model Mental Status: Appearance: casually and appropriately dressed, hygiene and grooming good Cognition: clear, oriented, linear, memory intact Mood: euthymic Insight/Judgement: good C-SSRS Screening [place]-Suicide Severity Rating Scale (C-SSRS Screener) 1. Over the past month, have you wished you were or wished you could go to sleep and not wake up? No 2. Over the past month, have you had any actual thoughts of killing yourself? No 3. Over the past month, have you been thinking about how you might do this? Response not required due to responses to other questions. 4. Over the past month, have you had these thoughts and had some intention of acting on them? Response not required due to responses to other questions. 5. Over the past month, have you started to work out or worked out the details of how to kill yourself? Response not required due to responses to other questions. 6. If yes, at any time in the past month did you intend to carry out this plan? Response not required due to responses to other questions. 7. In your lifetime, have you ever done anything, started to do anything, or prepared to do anything to end your life (for example, collected pills, obtained a gun, gave away valuables, went to the roof but didn't jump)? Yes 8. If YES, was this within the past 3 months? No Assessment Data: PHQ9 Historical scores: Date Instrument Raw Trans Scale 09/30/2024 14:54 PHQ9 4 PHQ9 08/12/2024 09:53 PHQ9 12 PHQ9 06/17/2024 10:33 PHQ9 13 PHQ9 03/25/2024 07:19 PHQ9 13 PHQ9 03/04/2024 10:10 PHQ9 15 PHQ9 10/29/2023 14:31 PHQ9 11 PHQ9 MACHO-7 Historical scores: Date Instrument Raw Trans Scale 10/29/2023 14:31 MACHO-7 17 Anxiety PCL-5 Historical scores: Date Instrument Raw Trans Scale 09/30/2024 14:54 PCL-5 20 PCL-5 08/12/2024 09:53 PCL-5 32 PCL-5 06/17/2024 10:33 PCL-5 50 PCL-5 03/25/2024 07:19 PCL-5 46 PCL-5 03/04/2024 10:10 PCL-5 54 PCL-5 Whole Health Interventions Relaxation techniques Session Content: [place]cliff states she has been dealing with sickness, congestion, and fever. She notes she is going to urgent care later today to get assessed. Overall, states she has been doing well other than her sickness and conflict with her mother. She states she has finally went no contact with her mother, as her mother has tried to continuously overstep boundaries. Identified significance of this. Therapeutic Intervention: CBT, emotional processing, interpersonal feedback Patient Response to Treatment: Open and engaged in session. Progress Towards Treatment Goal: [place]cliff appeared to make progress towards goals. Plan and Scheduling Instructions: RTC in 2-3 weeks. Pain management, if needed, is managed by primary care. This Postdoctoral Patient Access Manager is receiving ongoing supervision by Jose Obando, Ph.D. Licensed Psychologist, with regard to the mental health treatment of this patient. A total of two hours individual weekly supervision is obtained, and this patient's care is discussed as needed, in compliance with [facility] Directive 1027. /maico/ LETICIA GODINEZ PSYD Psychology Postdoctoral Fellow Signed: 12/16/2024 15:27 /maico/ JOSE OBANDO, PHD Licensed Clinical Psychologist Cosigned: 12/17/2024 07:38 LETICIA GODINEZ [facility]
--- OUTSIDE RECORDS SUMMARY | 2024-12-16 07:21 | XMS_ITS | Encounter Summary ---
Author Name [facility] [place] [facility] [place] Address [address] [place] [address] Care Team Providers Care Payroll Coordinator Name Role Phone JOEY VAN Primary Care [...] Name Patient's Relationship to Policy Harvey LILAMARK ([id number]) PRESCRIPT ION [id number] May 06, 2018 [id number] [phone] R[address]PH HERRERA SPOUSE Selected Encounter This section includes the information on record at [place] for the Encounter. Date/Time Encounter Type Encounter Description Reason Pro vider Source Dec 16, 2024 11:21 AM Outpatient Encounter TELEPHONE TRIAGE IHE Encounter Template Text not used by [place] Plan of Treatment: Future Appointments (+ 6 months) and Future Tests (+/- 45 days) The Plan of Treatment section includes future care activities for the patient [facility] This section includes future appointments and future orders which are active, pending or scheduled. Future Appointments This section includes appointments that were scheduled to occur 6 months from the date of the Encounter, up to a maximum of 20 appointments. The data comes from all [place] treatment facilities. Appointment Date/Time Appointment Type Appointme nt Facility Name Dec 21, 2024 10:00 AM AMBULATORY - REHAB MEDICIN E [facility] Dec 28, 2024 09:00 AM AMBULATORY - REHAB MEDICIN E [facility] Dec 30, 2024 09:00 AM [facility] Jan 05, 2025 10:00 AM AMBULATORY - [facility]UROLOGY [facility] Jan 07, 2025 07:00 AM AMBULATORY - NONE [facility] Jan 07, 2025 08:00 AM AMBULATORY - NONE [facility] Jan 11, 2025 09:00 AM AMBULATORY - REHAB MEDICIN E [facility] Jan 18, 2025 09:00 AM AMBULATORY - REHAB MEDICIN E [facility] Jan 27, 2025 09:00 AM [facility] Feb 22, 2025 09:30 AM AMBULATORY - REHAB MEDICIN E [facility] Mar 01, 2025 09:00 AM AMBULATORY - REHAB MEDICIN E [facility] May 10, 2025 09:00 AM AMBULATORY - NONE [facility] May 10, 2025 09:30 AM AMBULATORY - NONE [facility] Social History: Smoking Status (Most current) and Tobacco Use (All prior to encounter date) This section includes the most current, and the historical, smoking and tobacco- related health factors from the [place] facility where the Encounter took place. Current Smoking Status This section includes the most current smoking, or tobacco-related health factor, from the [place] facility where the Encounter took place. Date/Time Current Smoking Status Comment Facil ity Oct 16, 2023 03:00 PM VA-TOBACCO QUIT 5 TO < 15 YRS [facility] Tobacco Use History This section includes a history of the smoking, or tobacco-related health factors, that were collected on or before the date of the Encounter. The data comes from the [place] facility where the Encounter took place. Date/Time Smoking Status/Tobacco Use Comment F acjames Oct 16, 2023 03:00 PM VA-TOBACCO QUIT 5 TO < 15 YRS [facility] Nov 05, 2022 03:00 PM VA-TOBACCO FORMER USER [facility] Nov 05, 2022 03:00 PM VA-TOBACCO QUIT 5 TO < 15 YRS [facility] September 15, 2021 08:00 AM VA-TOBACCO FORMER USER [facility] September 15, 2021 08:00 AM VA-TOBACCO QUIT 1 TO < 5 YRS [facility] Encounter Notes: All associated encounter notes This section contains the clinical notes associated to the Encounter. Date/Time Encounter Note(s) Provider Source Dec 16, 2024 11:21 AM RN PROGRESS NOTE: LOCAL TITLE: CCC: CLINICAL TRIAGE STANDARD TITLE: RN PROGRESS NOTE DATE OF NOTE: DEC 16, 2024@11:21:53 ENTRY DATE: DEC 16, 2024@11:21:53 AUTHOR: LINH KIMBLE COSIGNER: URGENCY: STATUS: COMPLETED CCC: CLINICAL TRIAGE Has ADDENDA Caller Verification Call Back Number: [phone] Caller/Recipient Relation to Patient: Self Caller Name: JOS HERRERA MSA Screening Patient Stated Symptoms: C/O fever 103.4 X last night, 100 X currently taking Tylenol C/O headache X 2 days C/O left big toenail came off, weeping X 4 days C/O body aches, sore throat 2 DAYS Triage Summary Conducted triage/discussed symptoms Pain Score: 0 (No Pain) Utilized the Triage Tool: Yes Chief Complaint: Cough - Acute Productive, Toenail Fungal Infection - Diagnosed or Suspected Nurse's Recommendation / WHEN: Now Nurse's Recommendation / WHERE: Virtual Video Visit Patient Disposition Patient/Caregiver agrees to plan of care: Yes Patient WHERE: Virtual Video Visit Patient WHEN: Now Nursing Plan and Disposition Referred for [facility] Virtual Clinic Visit Other Other Description: er vvc now Clinical Contact Center Codes Clinic/Location: V9 BEBE PHONE CCC RN DAYTIME Decision Support System Output: Triage Complete Triage Date: 12/16/2024, 11:18 AM Triage Note: Decision Support Tool Used: ClearTriaarun * pt reports fever last night 103.4, taking tylenol to keep around 100 also reports dry cough she thinks is allergies body aches and sore throat x 2 days also has toe nail that has come off and pcp eval on saturday however since then, looking red and having drainage pt is NIDDM triage completed with system rec of clinic follow up upgraded to ER VVC, patient agrees to rec added to [facility] ER [facility] clinic. Pt Pt agrees to video visit * Protocols Used (2): Cough - Acute Productive, Toenail Fungal Infection - Diagnosed or Suspected Disposition for Call: See Provider within 4 Hours Protocol Used: Cough - Acute Productive Protocol-Based Disposition: See Provider within 4 Hours Positive Triage Question: * Fever > 103 F (39.4 C) Negative Triage Questions: * SEVERE difficulty breathing (e.g., struggling for each breath, speaks in single words) * Bluish (or bearden) lips or face now * [1] Difficulty breathing AND [2] exposure to flames, smoke, or fumes * [1] Stridor AND [2] difficulty breathing * Sounds like a life-threatening emergency to the triager * [1] MODERATE difficulty breathing (e.g., speaks in phrases, SOB even at rest, pulse 100-120) AND [2] still present when not coughing * Chest pain (Exception: MILD central chest pain, present only when coughing.) * Patient sounds very sick or weak to the triager * [1] MILD difficulty breathing (e.g., minimal/no SOB at rest, SOB with walking, pulse < 100) AND [2] still present when not coughing * [1] Coughed up blood AND [2] > 1 tablespoon (15 ml) (Exception: Blood-tinged sputum.) Protocol Used: Toenail Fungal Infection - Diagnosed or Suspected Protocol-Based Disposition: See Provider within 4 Hours Video visit offered and caller accepted Positive Triage Question: * [1] Looks infected (spreading redness, red streak, pus) AND [2] fever Care Advice Discussed: * Reasons To Call Back - You become worse Negative Triage Question: * Patient sounds very sick or weak to the triager IMPORTANT: This note was created by [facility] Clinical Contact Center staff. Please do not alert the staff member by adding them as a signer for future communications. Alerts are not monitored by this user. /es/ LINH KIMBLE RN REGISTERED NURSE Signed: 12/16/2024 11:21 Receipt Acknowledged By: 12/16/2024 11:38 /es/ LEAH Orellana, RN [place] 12/17/2024 08:36 /es/ JOEY VAN NURSE PRACTITIONER 12/16/2024 ADDENDUM STATUS: COMPLETED seen through [facility] video. Wilson has fever, bodyaches, chills since yesterday. Took home covid test, but negative. I recommend to get covid/flu swab. discussed about arranging POC swab through [facility]. states that she doesnt feel like she can drive to [place]. Recommend to go to [facility] to be evaluated in person to be examined and to have right great toe looked at as well. from what i can see, no red streaking, but some irritation to skin where toenail fell off. no cyanosis. Wilson states that soon to come home and will have him take her to [facility] locally. /es/ ROHINI PATEL Signed: 12/16/2024 13:07 12/16/2024 ADDENDUM STATUS: COMPLETED ccc f/u pt eval by er [facility] now /es/ LINH KIMBLE RN REGISTERED NURSE Signed: 12/16/2024 14:34 LINH KIMBLE [facility]
--- OUTSIDE RECORDS SUMMARY | 2024-12-16 09:07 | XMS_ITS | Encounter Summary ---
Author Name [facility] Address [address] [place] [address] Care Team Providers Care Registered Nurse [facility] Name Role Phone JOEY VAN Primary Care [...] Harvey's Name Patient's Relationship to Policy Harvey CAREMARK ([id number]) PRESCRIPT ION [id number] May 06, 2018 [id number] [phone] RALPH HERRERA SPOUSE Selected Encounter This section includes the information on record at [facility] for the Encounter. Date/Time Encounter Type Encounter Description Reason Provider Source Dec 16, 2024 01:07 PM EMERGENCY DEPT VISIT KEYANA TELEPHONE/DARION Ortega ICD-10-CM R50.9 Fever, unspecified ROHIIN COLLINS Jordan Encounter Template Text not used by [place] Assessments - Encounter Diagnoses This section includes the primary and secondary diagnoses documented for the Encounter. Date/Time Primary/Secondary Diagnosis Diagnosis Name Provider Source Dec 16, 2024 01:07 PM PRIMARY Fever, unspecified ROHINI PATEL [facility] Plan of Treatment: Future Appointments (+ 6 months) and Future Tests (+/- 45 days) The Plan of Treatment section includes future care activities for the [facility] This section includes future appointments and future orders which are active, pending or scheduled. Future Appointments This section includes appointments that were scheduled to occur 6 months from the date of the Encounter, up to a maximum of 20 appointments. The data comes from all [place] treatment [facility]. Appointment Date/Time Appointment Type Appointme nt Facility Name Dec 21, 2024 10:00 AM AMBULATORY - REHAB MEDICIN E [facility] Dec 28, 2024 09:00 AM AMBULATORY - REHAB MEDICIN E [facility] Dec 30, 2024 09:00 AM AMBULATORY - PSYCHIATRY LE [facility] Jan 05, 2025 10:00 AM AMBULATORY - NEUROLOGY [facility] Jan 07, 2025 07:00 AM [facility] Jan 07, 2025 08:00 AM AMBULATORY - NONE [facility] Jan 11, 2025 09:00 AM AMBULATORY - REHAB MEDICIN E [facility] Jan 18, 2025 09:00 AM AMBULATORY - REHAB MEDICIN E [facility] Jan 27, 2025 09:00 AM AMBULATORY - PSYCHIATRY LE [facility] Feb 22, 2025 09:30 AM AMBULATORY - REHAB MEDICIN E [facility] Mar 01, 2025 09:00 AM AMBULATORY - REHAB MEDICIN E [facility] May 10, 2025 09:00 AM [facility] May 10, 2025 09:30 AM AMBULATORY - NONE [facility] Encounter Notes: All associated encounter notes This section contains the clinical notes associated to the Encounter. Date/Time Encounter Note(s) Provider Source Dec 16, 2024 01:07 PM EMERGENCY MEDICINE TELEHEALTH NOTE: LOCAL TITLE: [facility] STANDARD TITLE: EMERGENCY MEDICINE TELEHEALTH NOTE DATE OF NOTE: DEC 16, 2024@13:07 ENTRY DATE: DEC 16, 2024@13:07:58 AUTHOR: SUKHI-NISA,LELA EXP COSIGNER: URGENCY: STATUS: COMPLETED Visit consulted by [facility]. DATE OF SESSION: DEC 16, 2024 Verified patient's address at time of contact: Ms. JOS BALLESTEROSB [address] [place], [place] [address] OTHER: Verified patient's phone number at time of contact: OTHER: JOS HERRERA 54 years old Patient understands that this is a [facility] appointment for an urgent or emergent care need and verbalizes understanding. Is agreeable to appointment. Definitive care on chronic medical issues will be deferred to routine Primary Care appointment/Provider. Patient assigned to: [facility] Chief Complaint: flu like symptoms HPI: presents via virtual care on video for flulike symptoms that started yesterday. She states she began having fever about 103 Fahrenheit, chills, body aches. She has had slight scratchy throat. No difficulty swallowing. She denies a chest pain, shortness breath, cough, nausea, vomiting and diarrhea. No skin rash. Perry states that she has been taken Tylenol for her fever. Additionally, she states that last week her right great toenail came off. She states prior to several months she had a thickened toenail that was noted to have a fungal infection. She states that the toenail had slowly lifted and then fell off last week. She states that there has been no bleeding from the site, but there is some irritation. Denies a fall or actual injury. Active Problems: Active problems - Computerized Problem List is the source for the followin. Essential tremor 2. Chronic pain 3. Chronic Post-Traumatic Stress Disorder ([facility] [id number]) 4. Allergic rhinitis 5. Peripheral neuropathy due to type 2 diabetes mellitus 6. Migraine 7. Hypothyroidism 8. Lumbar radiculopathy 9. Obstructive sleep apnea 10. Vitamin D deficiency 11. Vitamin B12 deficiency (non anemic) Current Medication List: Active and Recently Outpatient Medications (including Supplies): Active Outpatient Medications Status 1) ATOGEPANT 60MG TAB TAKE ONE TABLET BY MOUTH DAILY ACTIVE Indication: FOR MIGRAINE PREVENTION 2) BUSPIRONE HCL 10MG TAB TAKE ONE TABLET BY MOUTH TWICE A DAY ACTIVE Indication: FOR MOOD 3) CARBOXYMETHYLCELLULOSE 0.5%(PF)OP MAG UD PUT 1 DROP IN BOTH ACTIVE EYES EVERY 1 HOUR NEEDED Indication: FOR DRY EYES 4) CHOLECALCIF 25MCG (D3-1,000UNIT) TAB TAKE ONE TABLET BY ACTIVE MOUTH DAILY Indication: FOR VITAMIN D SUPPLEMENT 5) CLONIDINE HCL 0.1MG TAB TAKE ONE TABLET BY MOUTH AT BEDTIME ACTIVE Indication: NIGHTMARES 6) EPINEPHRINE (EQV-EPI-PEN) 0.3MG/0.3ML INJECT 0.3MG/1 SYRINGE ACTIVE INTO THE MUSCLE DIRECTED ONCE NEEDED Indication: FOR SEVERE ALLERGIC REACTION 7) FEXOFENADINE HCL 180MG TAB TAKE ONE TABLET BY MOUTH DAILY ACTIVE Indication: FOR ALLERGIES 8) FLUTICASONE PROP 50MCG 120D NASAL INHL USE 1 SPRAY IN EACH ACTIVE NOSTRIL TWICE A DAY Indication: FOR NASAL ALLERGY 9) GABAPENTIN 600MG TAB TAKE ONE TABLET BY MOUTH TWICE A DAY ACTIVE Indication: FOR RESTLESS LEG 10) IPRATROPIUM BR 0.06% NASAL SPRAY SPRAY 1 TO 2 SPRAYS IN EACH ACTIVE NOSTRIL TWICE A DAY 1/NOSTRIL TWICE A DAY - FOUR TIMES A DAY NEEDED FOR CONGESTION AND DRAINAGE Indication: FOR NASAL ALLERGY 11) LIDOCAINE 5% 5IN X 6IN PATCH APPLY 1 PATCH TO SKIN DAILY ACTIVE -LEAVE ON 12 HOURS, THEN REMOVE FOR 12 HOURS Indication: FOR PAIN 12) MONTELUKAST NA 10MG TAB TAKE ONE TABLET BY MOUTH DAILY ACTIVE Indication: FOR ALLERGIES 13) NALOXONE HCL 4MG/SPRAY SOLN NASAL SPRAY SPRAY 1 DOSE IN ONE ACTIVE NOSTRIL ONLY DIRECTED -CALL 01-04- IF MEDICATION IS ADMINISTERED. Indication: FOR OPIOID OVERDOSE 14) OLOPATADINE HCL 0.1% OPH SOLN PUT 1 DROP IN BOTH EYES TWICE ACTIVE A DAY Indication: FOR EYE ALLERGIES 15) OXYBUTYNIN CHLORIDE 10MG SA TAB TAKE ONE TABLET BY MOUTH ACTIVE DAILY Indication: FOR BLADDER 16) POISE PAD,MODERATE ABSORBENCY USE PAD DIRECTED THREE ACTIVE TIMES A DAY NEEDED Indication: FOR INCONTINENCE 17) ROSUVASTATIN CA 10MG TAB TAKE ONE-HALF TABLET BY MOUTH AT ACTIVE BEDTIME Indication: FOR CHOLESTEROL 18) SERTRALINE HCL 100MG TAB TAKE TWO TABLETS BY MOUTH DAILY ACTIVE Indication: FOR MOOD 19) SINUS RINSE NEILMED PKT USE 1 PACKET FOR NASAL IRRIGATION ACTIVE DIRECTED TWICE A DAY -MIX DIRECTED ON PACKAGE WITH DISTILLED WATER THEN FOLLOW DIRECTIONS ON PACKAGE Indication: FOR NASAL CONGESTION 20) SINUS RINSE NEILMED REGULAR KIT USE KIT TO IRRIGATE NOSE ACTIVE TWICE A DAY -MIX DIRECTED ON PACKAGE WITH DISTILLED WATER THEN FOLLOW DIRECTIONS ON PACKAGE. REPLACE BOTTLE EVERY 3 MONTHS Indication: FOR NASAL CONGESTION 21) SODIUM CHLORIDE 0.65% SOLN NASAL SPRAY SPRAY 2 SPRAYS IN ACTIVE EACH NOSTRIL SIX TIMES A DAY Indication: FOR CONGESTION 22) TRAMADOL HCL 50MG TAB TAKE ONE TABLET BY MOUTH THREE TIMES A ACTIVE DAY MAY CAUSE DROWSINESS Indication: FOR PAIN 23) TRAZODONE HCL 100MG TAB TAKE ONE TABLET BY MOUTH AT BEDTIME ACTIVE (S) Indication: FOR SLEEP 24) UBROGEPANT 100MG TAB TAKE ONE TABLET BY MOUTH ONCE NEEDED ACTIVE -TAKE AT ONSET OF HEADACHE. MAY REPEAT DOSE IN 2 HOURS IF NEEDED. Indication: FOR MIGRAINES Inactive Outpatient Medications Status 1) ASPIRIN 81MG EC TAB TAKE ONE TABLET BY MOUTH DAILY FOR HEART 2) AZITHROMYCIN 250MG TAB TAKE TWO TABLETS BY MOUTH DAILY FOR 1 DAY, THEN TAKE ONE TABLET DAILY FOR 4 DAYS Indication: FOR BRONCHITIS 3) CELECOXIB 100MG CAP TAKE ONE CAPSULE BY MOUTH TWICE A DAY Indication: FOR PAIN 4) CYANOCOBALAMIN 1000MCG TAB TAKE TWO TABLETS BY MOUTH DAILY FOR NUTRITION 5) CYCLOBENZAPRINE HCL 10MG TAB TAKE ONE TABLET BY MOUTH THREE TIMES A DAY Indication: FOR MUSCLE SPASMS 6) FLUCONAZOLE 150MG TAB TAKE ONE TABLET BY MOUTH DAILY Indication: FOR FUNGAL INFECTION 7) GABAPENTIN 300MG CAP TAKE TWO CAPSULES BY MOUTH THREE TIMES A DAY FOR PAIN WEEKS 3-4: PRIMIDONE 100 MG TWICE DAILY, GABAPENTIN 600 MG THREE TIMES DAILY. WEEKS 5-6: PRIMIDONE 50 MG TWICE DAILY, GABAPENTIN 800 MG THREE TIMES DAILY Indication: TREMOR 8) GUAIFENESIN 400MG TAB TAKE ONE TABLET BY MOUTH THREE TIMES A DAY Indication: FOR SECRETIONS 9) HYDROCODONE 7.5/ACETAMINOPHEN 325MG TAB TAKE 1 TABLET BY MOUTH AT BEDTIME Indication: FOR PAIN 10) LEVOTHYROXINE NA 125MCG TAB TAKE ONE TABLET BY MOUTH DAILY FOR THYROID 11) METFORMIN HCL 500MG 24HR SA TAB TAKE TWO TABLETS BY MOUTH TWICE A DAY FOR DIABETES 12) NITROFURANTOIN MONO/MACRO 100MG SA CAP TAKE ONE CAPSULE BY MOUTH TWICE A DAY Indication: FOR UTI (BLADDER) 13) PANTOPRAZOLE NA 40MG EC TAB TAKE ONE TABLET BY MOUTH ONCE A DAY 30 MINUTES BEFORE A MEAL FOR STOMACH. TAKE ON AN EMPTY STOMACH. 14) PRIMIDONE 50MG TAB TAKE THREE TABLETS BY MOUTH TWICE A DAY Indication: FOR SEIZURES Active Non-VA Medications Status 1) Non-VA ATOGEPANT 60MG TAB 60MG MOUTH DAILY ACTIVE 2) Non-VA ATOGEPANT 60MG TAB 60MG MOUTH DAILY ACTIVE Indication: FOR MIGRAINE PREVENTION 3) Non-VA UBROGEPANT 100MG TAB 100MG MOUTH DIRECTED ACTIVE 41 Total Medications Social History: Alcohol: Tobacco: Illicit Drugs: Allergies: PERCOCET, DARVOCET-N, CODEINE, AUGMENTIN, LISINOPRIL, ATORVASTATIN Pain Assessment: Last pain score: 4 (11/10/2024 08:51) Pain level is 0-3, no further interventions required. ROS: All systems listed have been reviewed. General: HAS fever/chills HAS fatigue Other: Skin: NO rash Other: EENT: NO new change in vision NO ear pain NO sore throat Other: Respiratory: NO cough Other: Cardiac: NO chest pain NO palpitations NO new swelling of feet or ankles Other: GI: NO abdominal pain NO nausea and/or vomiting Other: : NO dysuria Other: Musculoskeletal: HAS new joint or muscle pain Other: Neurologic: NO new difficulties with speech/gait NO focal weakness Other: Psychological: NO current SI/HI endorsed NO new anxiety or depression OBJECTIVE OBSERVABLE FINDINGS: General Appearance: No Acute Distress, Alert, awake, oriented to time, place and person, well developed, well nourished HEENT: NC/AT Cardiovascular: Good peripheral perfusion Respiratory: Unlabored respirations, Speaks in full sentences, No audible wheezing or stridor noted Abdominal: na Musculoskeletal: Normal range of motion all extremities. Right great toe noted for toenail missing. There is no active bleeding. No laceration. There is some slight irritation to the nailbed where the toenail came off and completely avulsed. No swelling and no red streaking. No cyanosis on video Skin: No rash to visible area of exposed skin Neurological: No motor deficits Psychiatric: No HI/SI ---MEDICAL DECISION MAKING--- has fever, bodyaches, chills since yesterday. Took home covid test, but negative. I recommend to get covid/flu swab. discussed about arranging POC swab through primary care. states that she doesnt feel like she can drive to [place] [facility], and would rather go somewhere locally. Recommend to go to [facility] to be evaluated in person to be examined and to have right great toe looked at as well. From what i can see, no red streaking, but some irritation to skin where toenail fell off. no cyanosis. However, I discussed that may need possible antibiotic for her great toe, but will defer to urgent treatment care to evaluate in person considering other symptoms that she is having. Perry states that soon to come home and will have him take her to [facility] locally. Recommend to follow-up with primary care team after she find out results from urgent treatment care center. Diagnosis: fever Disposition: Issue addressed with [facility]Now [facility] Visit, follow [facility] Patient Discharge Education Provided: Discharge instructions were reviewed verbally with patient. Patient verbalizes understanding of the plan of care Prescriptions were ordered: No medication was required Medication Reconciliation: Medication reconciliation was performed with the patient and/or caregiver at this encounter. This reconciliation addressed Active Medications (Local VA Prescriptions, Remote VA Prescriptions and Non-VA medications), Recently or Discontinued VA Prescriptions, and Pending Medication Orders. All medication questions were answered, discrepancies (if any) resolved, and the patient and/or caregiver was provided with an updated list of current medications. I spent 9 (minutes) with patient and/or caregiver today utilizing [facility] Connect Mod[facility]. /maico/ ROHINI PATEL Signed: 12/16/2024 23:10 Receipt Acknowledged By: 12/17/2024 10:17 /es/ LEAH Orellana, RN Pc Staff Cytotechnologist 12/17/2024 08:36 /es/ JOEY VAN NURSE PRACTITIONER [facility]
[2024-12-16 15:37] LABS: Coronavirus 19, PCR Not Detected (NotDetected); Influenza A, PCR Not Detected (NotDetected); Influenza B, PCR Not Detected (NotDetected)
--- OUTSIDE RECORDS SUMMARY | 2024-12-18 11:57 | XMS_ITS | Continuity of Care Document ---
Author Name [facility] Organization [facility] Care Team Providers Care Tile Layer Drainage Name Role Phone [facility] Unavailable Unavailable Problems Combined list of problems from Department of [facility] and [facility] facilities. It does not include entries that were removed or entered in error. Problem Status Onset Date Problem Type Date of Resolution Comments Source Allergic rhinitis Active Condition [facility] Chronic pain Active Condition [facility] Chronic Post-Traumatic Stress Disorder ([facility] [id number]) Active Condition [facility] Essential tremor Active Condition [facility] Hypothyroidism Active Condition [facility] Lumbar radiculopathy Active Condition [facility] Migraine Active Condition [facility] Obstructive sleep apnea Active Condition [facility] Peripheral neuropathy due to type 2 diabetes mellitus Active Condition [facility] Vitamin B12 deficiency (non anemic) Active Condition [facility] Vitamin D deficiency Active Condition L [facility] Pure hypercholesterolemia Inactive Condition 09/15/2021 [facility] Diagnosis: ICD-10-CM R50.9 Fever, unspecified Active Diagnosis [facility] Diagnosis: ICD-10-CM F43.12 Post-traumatic stress disorder, chronic Active Diagnosis [facility] Diagnosis: ICD-10-CM G89.29 Other chronic pain Active Diagnosis [facility] Diagnosis: ICD-10-CM M54.2 Cervicalgia Active Diagnosis [facility] Diagnosis: ICD-10-CM Z01.20 Encounter for dental exam and cleaning w/o abnormal findings Active Diagnosis [facility] Diagnosis: ICD-10-CM G43.119 Migraine with aura, intractable, without status migrainosus Active Diagnosis [facility] Diagnosis: ICD-10-CM M47.817 Spondyls w/o myelopathy or radiculopathy, lumbosacr region Active Diagnosis [facility] Diagnosis: ICD-10-CM R07.9 Chest pain, unspecified Active Diagnosis [facility] Diagnosis: ICD-10-CM Z71.89 Other specified counseling Active Diagnosis [facility] Diagnosis: ICD-10-CM J30.2 Other seasonal allergic rhinitis Active Diagnosis [facility] Diagnosis: ICD-10-CM R79.9 Abnormal finding of blood chemistry, unspecified Active Diagnosis [facility] Diagnosis: ICD-10-CM Z13.5 Encounter for screening for eye and ear disorders Active Diagnosis [facility] Diagnosis: ICD-10-CM E11.40 Type 2 diabetes mellitus with diabetic neuropathy, unsp Active Diagnosis [facility] Diagnosis: ICD-10-CM R32 Unspecified urinary incontinence Active Diagnosis [facility] Diagnosis: ICD-10-CM Z79.899 Other group home (current) drug therapy Active Diagnosis [facility] Diagnosis: ICD-10-CM C74.92 Malignant neoplasm of unspecified part of left adrenal gland Active Diagnosis [facility] Diagnosis: ICD-10-CM J01.80 Other acute sinusitis Active Diagnosis [facility] Diagnosis: ICD-10-CM N39.3 Stress incontinence (female) (male) Active Diagnosis [facility] Diagnosis: ICD-10-CM Z51.81 Encounter for therapeutic drug level monitoring Active Diagnosis [facility] Diagnosis: ICD-10-CM N39.46 Mixed incontinence Active Diagnosis [facility] Diagnosis: ICD-10-CM F43.10 Post-traumatic stress disorder, unspecified Active Diagnosis [facility] Diagnosis: ICD-10-CM M54.16 Radiculopathy, lumbar region Active Diagnosis [facility] Diagnosis: ICD-10-CM I25.84 Coronary atherosclerosis due to calcified coronary lesion Active Diagnosis [facility] Diagnosis: ICD-10-CM R21 Rash and other nonspecific skin eruption Active Diagnosis [facility] Diagnosis: ICD-10-CM F43.9 Reaction to severe stress, unspecified Active Diagnosis [facility] Diagnosis: ICD-10-CM Z78.9 Other specified health status Active Diagnosis [facility] Diagnosis: ICD-10-CM Z13.6 Encounter for screening for cardiovascular disorders Active Diagnosis [facility] Admit Reason: Chest pressure Active Diagnosis [facility] Diagnosis: ICD-10-CM D18.01 Hemangioma of skin and subcutaneous tissue Active Diagnosis [facility] Diagnosis: ICD-10-CM M46.96 Unspecified inflammatory spondylopathy, lumbar region Active Diagnosis [facility] Diagnosis: ICD-10-CM M47.16 Other spondylosis with myelopathy, lumbar region Active Diagnosis [facility] Diagnosis: ICD-10-CM D48.5 Neoplasm of uncertain behavior of skin Active Diagnosis [facility] Diagnosis: ICD-10-CM Z13.89 Encounter for screening for other disorder Active Diagnosis [facility] Diagnosis: ICD-10-CM 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 Medication Details Route Status Patient Instructions Prescription Expires Prescription Number Last Dispense Date Ordering Provider Order Date Order Qty Source ASPIRIN 81MG TAB,EC TAKE ONE TABLET BY MOUTH DAILY FOR HEART ORAL 10/18/2024 [id number] HOLLIE VAN 2023 180 [place] [facility] ATOGEPANT 60MG TAB TAKE ONE TABLET BY MOUTH DAILY FOR MIGRAINE PREVENTI ON ORAL ACTIVE 11/12/2025 [id number] 5 SAMANTAJASON NA M 2024 90 [place] [facility] ATOGEPANT 60MG TAB TAKE ONE TABLET BY MOUTH DAILY ORAL ACTIVE SAMANTA,JASON NA M 2024 [place] [facility] ATOGEPANT 60MG TAB TAKE ONE TABLET BY MOUTH DAILY ORAL ACTIVE Mayra PALOMINO 2023 [place] AZITHROMYCI N 250MG TAB TAKE TWO TABLETS BY MOUTH DAILY FOR 1 DAY, THEN TAKE ONE TABLET DAILY FOR 4 DAYS FOR BRONCHIT IS ORAL 11/03/2024 [id number] 5 Ld WATSON 2024 6 [place] BUSPIRONE HCL 10MG TAB TAKE ONE TABLET BY MOUTH TWICE A DAY FOR MOOD ORAL ACTIVE 09/18/2025 [id number] 5 CHARLINE MUNOZ 2024 180 [place] [facility] BUSPIRONE HCL 10MG TAB TAKE ONE TABLET BY MOUTH TWICE A DAY FOR MOOD ORAL DISCONT INUED 09/18/2025 [id number] 5 CHARLINE MUNOZ 2024 120 [place] [facility] BUSPIRONE HCL 10MG TAB TAKE TWO TABLETS BY MOUTH TWICE A DAY FOR ANXIETY ORAL DISCONT INUED (EDIT) 09/27/2024 [id number] 5 HOLLIE VAN 2023 360 [place] CARBOXYMETH YLCELLULOSE NA 0.5% (PF) SOLN,OPH,UD PUT 1 DROP IN BOTH EYES EVERY 1 HOUR NEEDED FOR DRY EYES OPHTHA LMIC ACTIVE 09/15/2025 [id number] 5 MARYCARMEN NORTON 2024 100 [place] [facility] CELECOXIB 100MG CAP TAKE ONE CAPSULE BY MOUTH TWICE A DAY FOR PAIN ORAL 10/17/2024 [id number] 5 HOLLIE VAN 2023 180 [place] [facility] CHOLECALCIF JIM 25MCG (1,000UNIT) TAB TAKE ONE TABLET BY MOUTH DAILY FOR VITAMIN D SUPPLEME NT ORAL ACTIVE 09/09/2025 [id number] 5 HOLLIE VAN 2024 100 [place] [facility] CLONIDINE HCL 0.1MG TAB TAKE ONE TABLET BY MOUTH AT BEDTIME NIGHTMAR ES ORAL ACTIVE 09/30/2025 [id number] 5 CHARLINE MUNOZ 2024 30 [place] [facility] CLONIDINE HCL 0.1MG TAB TAKE ONE TABLET BY MOUTH AT BEDTIME NIGHTMAR ES ORAL DISCONT INUED 07/17/2025 [id number] 5 CHARLINE MUNOZ 2024 30 [place] [facility] CLONIDINE HCL 0.1MG TAB TAKE ONE TABLET BY MOUTH AT BEDTIME NIGHTMAR ES ORAL DISCONT INUED 05/13/2025 [id number] 5 CHARLINE MUNOZ 2024 30 [place] [facility] [place] CLONIDINE HCL 0.1MG TAB TAKE ONE TABLET BY MOUTH AT BEDTIME NIGHTMAR ES ORAL DISCONT INUED 03/14/2025 [id number] 4 CHARLINE MUNOZ 2023 30 [place] [facility] [place] CLONIDINE HCL 0.1MG TAB TAKE ONE-HALF TABLET BY MOUTH AT BEDTIME FOR 3 DAYS, THEN TAKE ONE TABLET AT BEDTIME NIGHTMAR ES ORAL DISCONT INUED 03/14/2025 [id number] 4 CHARLINE MUNOZ 2023 29 [place] [facility] [place] CYANOCOBALA MIN 1000MCG TAB TAKE TWO TABLETS BY MOUTH DAILY FOR NUTRITIO N ORAL 10/18/2024 [id number] 5 HOLLIE VAN 2023 200 [place] [facility] [place] CYCLOBENZAP RINE HCL 10MG TAB TAKE ONE TABLET BY MOUTH THREE TIMES A DAY FOR MUSCLE SPASMS ORAL 10/08/2024 [id number] 5 HOLLIE VAN 2024 63 [place] [facility] CYCLOBENZAP RINE HCL 10MG TAB TAKE ONE TABLET BY MOUTH THREE TIMES A DAY FOR MUSCLE SPASMS ORAL 07/18/2024 [id number] 5 HOLLIE VAN 2024 63 [place] [facility] [place] DEXAMETHASO NE 1MG TAB TAKE ONE TABLET BY MOUTH AT BEDTIME FOR PRE-MED TAKE BETWEEN THE HOURS OF 11 EVENING AND 12 AM. THEN HAVE LABS DRAWN BETWEEN 8 MORNING AND 9 MORNING THE NEXT MORNING. TAKE BETWEEN THE HOURS OF 11 EVENING AND 12 AM. THEN HAVE LABS DRAWN BETWEEN 8 MORNING AND 9 MORNING THE NEXT MORNING. ORAL 02/29/2024 [id number] 4 PEACE REN 2023 1 [place] [facility] DEXTRAN 70/GLYCERIN 0.2%/HYPROM ELLOSE 0.3% SOLN,OPH PUT 1 DROP IN BOTH EYES THREE TIMES A DAY FOR DRY EYES OPHTHA LMIC ACTIVE 07/12/2024 [id number] 4 MARYCARMEN NORTON 2023 45 [place] EPINEPHRINE (EQV-EPI-PE N) 0.3MG/0.3ML INJECTOR INJECT 0.3MG/1 SYRINGE INTO THE MUSCLE DIRECTED ONCE NEEDED FOR SEVERE ALLERGIC REACTION INTRAM USCULA R ACTIVE 02/28/2025 [id number] 5 HOLLIE VAN 2024 2 [place] [facility] FEXOFENADIN E HCL 180MG TAB TAKE ONE TABLET BY MOUTH DAILY FOR ALLERGIE S ORAL ACTIVE 09/15/2025 [id number] 5 MARYCARMEN NORTON 2024 90 [place] [facility] FEXOFENADIN E HCL 180MG TAB TAKE ONE TABLET BY MOUTH DAILY FOR ALLERGIE S ORAL DISCONT INUED 09/27/2024 [id number] 5 MARYCARMEN NORTON 2023 90 [place] FLUCONAZOLE 150MG TAB TAKE ONE TABLET BY MOUTH DAILY FOR FUNGAL INFECTIO N ORAL 07/08/2024 [id number] 5 PEACE REN 2024 2 [place] FLUTICASONE PROPIONATE 50MCG/SPRAY SOLN,NASAL, 16GM USE 1 SPRAY IN EACH NOSTRIL TWICE A DAY FOR NASAL ALLERGY NASAL ACTIVE 09/15/2025 [id number] 5 MARYCARMEN NORTON 2024 3 [place] [facility] GABAPENTIN 300MG CAP TAKE TWO CAPSULES BY MOUTH TWICE A DAY FOR NERVE PAIN ORAL DISCONT INUED BY PROVIDE R 07/17/2025 [id number] 5 CHARLINE MUNOZ E 2024 120 [place] [facility] GABAPENTIN 300MG CAP TAKE TWO CAPSULES BY MOUTH THREE TIMES A DAY FOR 7 DAYS, THEN TAKE TWO CAPSULES TWICE A DAY FOR NERVE PAIN ORAL DISCONT INUED 07/17/2025 [id number] 5 CHARLINE MUNOZ 2024 134 [place] [facility] GABAPENTIN 300MG CAP TAKE ONE CAPSULE BY MOUTH THREE TIMES A DAY FOR PAIN ORAL DISCONT INUED (EDIT) 03/20/2025 [id number] 4 HOLLIE VAN 2023 90 [place] [facility] GABAPENTIN 300MG CAP TAKE ONE CAPSULE BY MOUTH THREE TIMES A DAY FOR PAIN ORAL DISCONT INUED 10/16/2024 [id number] 4 HOLLIE VAN 2023 90 [place] [facility] GABAPENTIN 300MG CAP TAKE TWO CAPSULES BY MOUTH THREE TIMES A DAY FOR PAIN WEEKS 3-4: PRIMIDON E 100 MG TWICE DAILY, GABAPENT IN 600 MG THREE TIMES DAILY. WEEKS 5-6: PRIMIDON E 50 MG TWICE DAILY, GABAPENT IN 800 MG THREE TIMES DAILY FOR PAIN WEEKS 3-4: PRIMIDON E 100 MG TWICE DAILY, GABAPENT IN 600 MG THREE TIMES DAILY. WEEKS 5-6: PRIMIDON E 50 MG TWICE DAILY, GABAPENT IN 800 MG THREE TIMES DAILY ORAL 06/28/2024 [id number] 5 CHARLINE MUNOZ 2024 84 [place] [facility] GABAPENTIN 400MG CAP TAKE ONE CAPSULE BY MOUTH THREE TIMES A DAY FOR RESTLESS LEG WEEKS 1-2: PRIMIDON E 150 MG TWICE DAILY, GABAPENT IN 400 MG THREE TIMES DAILY. WEEKS 3-4: PRIMIDON E 100 MG TWICE DAILY, GABAPENT IN 600 MG THREE TIMES DAILY WEEKS 1-2: PRIMIDON E 150 MG TWICE DAILY, GABAPENT IN 400 MG THREE TIMES DAILY. WEEKS 3-4: PRIMIDON E 100 MG TWICE DAILY, GABAPENT IN 600 MG THREE TIMES DAILY ORAL 05/15/2024 [id number] 4 CHARLINE MUNOZ 2023 42 [place] [facility] GABAPENTIN 600MG TAB TAKE ONE TABLET BY MOUTH TWICE A DAY FOR RESTLESS LEG ORAL ACTIVE 11/12/2025 [id number] 5 CHARLINE MUNOZ 2024 180 [place] [facility] GABAPENTIN 600MG TAB TAKE ONE TABLET BY MOUTH TWICE A DAY FOR RESTLESS LEG ORAL DISCONT INUED (EDIT) 09/18/2025 [id number] CHARLINE MUNOZ 2024 60 [place] [facility] GABAPENTIN 600MG TAB TAKE ONE TABLET BY MOUTH THREE TIMES A DAY FOR RESTLESS LEG WEEKS 1-2: PRIMIDON E 150 MG TWICE DAILY, GABAPENT IN 400 MG THREE TIMES DAILY. WEEKS 3-4: PRIMIDON E 100 MG TWICE DAILY, GABAPENT IN 600 MG THREE TIMES DAILY WEEKS 1-2: PRIMIDON E 150 MG TWICE DAILY, GABAPENT IN 400 MG THREE TIMES DAILY. WEEKS 3-4: PRIMIDON E 100 MG TWICE DAILY, GABAPENT IN 600 MG THREE TIMES DAILY ORAL 05/15/2024 [id number] 4 CHARLINE MUNOZ 2023 42 [place] [facility] GABAPENTIN 800MG TAB TAKE ONE TABLET BY MOUTH THREE TIMES A DAY WEEKS 3-4: PRIMIDON E 100 MG TWICE DAILY, GABAPENT IN 600 MG THREE TIMES DAILY. WEEKS 5-6: PRIMIDON E 50 MG TWICE DAILY, GABAPENT IN 800 MG THREE TIMES DAILY WEEKS 3-4: PRIMIDON E 100 MG TWICE DAILY, GABAPENT IN 600 MG THREE TIMES DAILY. WEEKS 5-6: PRIMIDON E 50 MG TWICE DAILY, GABAPENT IN 800 MG THREE TIMES DAILY ORAL DISCONT INUED BY PROVIDE R 05/30/2025 [id number] 5 CHARLINE MUNOZ E 2024 90 [place] [facility] GUAIFENESIN 400MG TAB TAKE ONE TABLET BY MOUTH THREE TIMES A DAY FOR SECRETIO NS ORAL 11/03/2024 [id number] 5 Ld WATSON 2024 42 [place] [facility] HYDROCODONE 7.5MG/ACETA MINOPHEN 325MG TAB TAKE 1 TABLET BY MOUTH AT BEDTIME FOR PAIN ORAL DISCONT INUED 08/07/2024 [id number] HOLLIE VAN 2024 30 [place] [facility] HYDROCODONE 7.5MG/ACETA MINOPHEN 325MG TAB TAKE 1 TABLET BY MOUTH AT BEDTIME FOR PAIN ORAL DISCONT INUED 06/12/2024 [id number] HOLLIE VAN 2024 30 [place] [facility] HYDROCODONE 7.5MG/ACETA MINOPHEN 325MG TAB TAKE 1 TABLET BY MOUTH AT BEDTIME FOR PAIN ORAL DISCONT INUED 04/08/2024 [id number] HOLLIE VAN 2023 30 [place] [facility] HYDROCODONE 7.5MG/ACETA MINOPHEN 325MG TAB TAKE 1 TABLET BY MOUTH AT BEDTIME FOR PAIN ORAL DISCONT INUED 03/14/2024 [id number] HOLLIE VAN 2023 30 [place] [facility] HYDROCODONE 7.5MG/ACETA MINOPHEN 325MG TAB TAKE 1 TABLET BY MOUTH AT BEDTIME FOR PAIN ORAL DISCONT INUED 02/15/2024 [id number] HOLLIE VAN 2023 30 [place] [facility] HYDROCODONE 7.5MG/ACETA MINOPHEN 325MG TAB TAKE 1 TABLET BY MOUTH AT BEDTIME FOR PAIN ORAL DISCONT INUED 01/16/2024 [id number] HOLLIE VAN 2023 30 [place] [facility] HYDROCODONE 7.5MG/ACETA MINOPHEN 325MG TAB TAKE 1 TABLET BY MOUTH AT BEDTIME FOR PAIN ORAL 09/02/2024 [id number] WILLIAM BANKS 2024 30 [place] [facility] [place] HYDROCODONE 7.5MG/ACETA MINOPHEN 325MG TAB TAKE 1 TABLET BY MOUTH AT BEDTIME FOR PAIN ORAL 07/02/2024 [id number] HOLLIE VAN 2024 30 [place] [facility] HYDROCODONE 7.5MG/ACETA MINOPHEN 325MG TAB TAKE 1 TABLET BY MOUTH AT BEDTIME FOR PAIN ORAL 05/07/2024 [id number] HOLLIE VAN 2023 30 [place] [facility] [place] HYDROCODONE 7.5MG/ACETA MINOPHEN 325MG TAB TAKE 1 TABLET BY MOUTH AT BEDTIME FOR PAIN ORAL 12/12/2023 [id number] HOLLIE VAN 2023 30 [place] [facility] [place] HYDROCODONE 7.5MG/ACETA MINOPHEN 325MG TAB TAKE 1 TABLET BY MOUTH AT BEDTIME FOR PAIN ORAL 11/08/2023 [id number] HOLLIE VAN 2023 30 [place] [facility] [place] IPRATROPIUM BR 0.06% SOLN,SPRAY, NASAL SPRAY 1 TO 2 SPRAYS IN EACH NOSTRIL TWICE A DAY FOR NASAL ALLERGY 1/NOSTRI L TWICE A DAY - FOUR TIMES A DAY NEEDED FOR CONGESTI ON AND DRAINAGE NASAL ACTIVE 09/15/2025 [id number] 5 MARYCARMEN NORTON 2024 45 [place] [facility] [place] IPRATROPIUM BR 0.06% SOLN,SPRAY, NASAL SPRAY 1 SPRAY IN EACH NOSTRIL TWICE A DAY UP TO FOUR TIMES DAILY NEEDED FOR CONGESTI ON AND DRAINAGE NASAL ACTIVE 07/12/2024 [id number] 4 MARYCARMEN NORTON 2023 45 [place] LEVOTHYROXI NE NA 125MCG TAB TAKE ONE TABLET BY MOUTH DAILY FOR THYROID ORAL 10/17/2024 [id number] 5 HOLLIE VAN 2023 90 [place] [facility] LIDOCAINE 5% PATCH APPLY 1 PATCH TO SKIN DAILY FOR PAIN -LEAVE ON 12 HOURS, THEN REMOVE FOR 12 HOURS TRANSD ERMAL ACTIVE 03/20/2025 [id number] 5 HOLLIE VAN 2023 30 [place] [facility] LIDOCAINE 5% PATCH APPLY 1 PATCH TO SKIN DAILY FOR PAIN -LEAVE ON 12 HOURS, THEN REMOVE FOR 12 HOURS TRANSD ERMAL DISCONT INUED 12/26/2023 [id number] 4 MAKENNA MARIA RA 2023 30 [place] [facility] LOSARTAN 25MG TAB TAKE ONE TABLET BY MOUTH DAILY FOR BLOOD PRESSURE ORAL ACTIVE 10/17/2024 [id number] 4 HOLLIE VAN 2023 90 [place] [facility] METFORMIN HCL 500MG 24HR TAB,SA TAKE TWO TABLETS BY MOUTH TWICE A DAY FOR DIABETES ORAL 10/17/2024 [id number] 5 HOLLIE VAN 2023 120 [place] [facility] METHOCARBAM OL 750MG TAB TAKE ONE TABLET BY MOUTH THREE TIMES A DAY FOR MUSCLE SPASM ORAL DISCONT INUED BY ALONSO R 11/12/2024 [id number] 4 HOLLIE VAN 2023 270 [place] [facility] MONTELUKAST NA 10MG TAB TAKE ONE TABLET BY MOUTH DAILY FOR ALLERGIE S ORAL ACTIVE 09/15/2025 [id number] 5 MARYCARMEN NORTON 2024 90 [place] [facility] MONTELUKAST NA 10MG TAB TAKE ONE TABLET BY MOUTH DAILY FOR ALLERGIE S ORAL DISCONT INUED 10/17/2024 [id number] 5 HOLLIE VAN 2023 90 [place] [facility] NALOXONE HCL 4MG/SPRAY SOLN,SPRAY, NASAL SPRAY 1 DOSE IN ONE NOSTRIL ONLY DIRECTED FOR OPIOID OVERDOSE -CALL IF MEDICATI ON IS ADMINIST ERED. NASAL ACTIVE 08/06/2025 [id number] 5 PORFIRIO PICKARD 2024 2 [place] [facility] NICOTINE 14MG/24HRS PATCH APPLY 1 PATCH TO SKIN DAILY FOR 28 DAYS FOR TOBACCO CESSATIO N -REMOVE OLD PATCH PRIOR TO APPLYING NEW ONE. TRANSD ERMAL 12/26/2023 [id number] 4 MAKENNA MARIA RA Echo 2023 28 [place] [facility] NICOTINE 7MG/24HRS PATCH APPLY 1 PATCH TO SKIN DAILY FOR 14 DAYS FOR TOBACCO CESSATIO N -REMOVE OLD PATCH PRIOR TO APPLYING NEW ONE (DONT START UNTIL COMPLETI ON OF 14MG PATCHES) TRANSD ERMAL 12/26/2023 [id number] 4 MAKENNA MARIA RA Echo 2023 14 [place] [facility] NICOTINE POLACRILEX 4MG TAB,CHEWG GUM CHEW 1 PIECE OF GUM IN MOUTH EVERY 1 HOUR NEEDED FOR TOBACCO CESSATIO N -CHEW GUM UNTIL IT TINGLES THEN PARK THE GUM BETWEEN THE CHEEK AND GUM AREA. REPEAT (RE-CHEW ) WHEN TINGLING STOPS. DO NOT EXCEED 24 PIECES IN 24 HOURS. ORAL ACTIVE 11/26/2024 [id number] 4 CANDACEMAKENNA RA Dodge 2023 110 [place] [facility] NITROFURANT OIN MONOHYDRATE /MACROCRYST ALLINE 100MG CAP,SA TAKE ONE CAPSULE BY MOUTH TWICE A DAY FOR UTI (BLADDER ) ORAL 07/08/2024 [id number] 5 PEACE REN 2024 20 [place] [facility] NITROGLYCER IN 0.4MG TAB,SUBLING UAL,BTL,25 DISSOLVE ONE TABLET UNDER THE TONGUE EVERY 5 MINUTES UP TO 3 DOSES FOR CHEST PAIN -IF NO RELIEF CALL 911 SUBLIN GUAL 12/26/2023 [id number] 4 RADHA DE LEON 2023 1 [place] OLOPATADINE HCL 0.1% SOLN,OPH PUT 1 DROP IN BOTH EYES TWICE A DAY FOR EYE ALLERGIE S OPHTHA LMIC ACTIVE 09/15/2025 [id number] 5 MARYCARMEN NORTON 2024 20 [place] [facility] [place] OXYBUTYNIN CL 10MG TAB,SA TAKE ONE TABLET BY MOUTH DAILY FOR BLADDER ORAL ACTIVE 01/28/2025 [id number] 5 PEACE REN 2023 90 [place] OXYBUTYNIN CL 10MG TAB,SA TAKE ONE TABLET BY MOUTH DAILY FOR BLADDER ORAL DISCONT INUED (EDIT) 11/26/2024 [id number] 4 PEACE REN 2023 60 [place] [facility] PANTOPRAZOL E NA 40MG TAB,EC TAKE ONE TABLET BY MOUTH ONCE A DAY 30 MINUTES BEFORE A MEAL FOR STOMACH. TAKE ON AN EMPTY STOMACH. ORAL 10/17/2024 [id number] 5 HOLLIE VAN 2023 90 [place] [facility] PRIMIDONE 50MG TAB TAKE TWO TABLETS BY MOUTH TWICE A DAY FOR SEIZURES ORAL DISCONT INUED (EDIT) 09/02/2024 [id number] 4 HOLLIE VAN 2023 360 [place] [facility] PRIMIDONE 50MG TAB TAKE THREE TABLETS BY MOUTH TWICE A DAY FOR SEIZURES ORAL 09/27/2024 [id number] 5 HOLLIE VAN 2023 540 [place] [facility] ROSUVASTATI N CA 10MG TAB TAKE ONE-HALF TABLET BY MOUTH AT BEDTIME FOR CHOLESTE ROL ORAL ACTIVE 03/07/2025 [id number] 5 HOLLIE VAN 2023 45 [place] [facility] ROSUVASTATI N CA 10MG TAB TAKE 1 TABLET BY MOUTH AT BEDTIME FOR CHOLESTE ROL PLEASE NOTE THIS IS A DOSE CHANGE ORAL DISCONT INUED 11/26/2024 [id number] 4 MAKENNA MARIA RA 2023 30 [place] [facility] ROSUVASTATI N CA 10MG TAB TAKE ONE-HALF TABLET BY MOUTH AT BEDTIME FOR CHOLESTE ROL ORAL DISCONT INUED 10/18/2024 [id number] 4 HOLLIE VAN 2023 45 [place] [facility] SERTRALINE HCL 100MG TAB TAKE TWO TABLETS BY MOUTH DAILY FOR MOOD ORAL ACTIVE 11/12/2025 [id number] 5 CHARLINE MUNOZ 2024 180 [place] [facility] SERTRALINE HCL 100MG TAB TAKE TWO TABLETS BY MOUTH DAILY FOR MOOD ORAL DISCONT INUED (EDIT) 06/26/2025 [id number] 5 CHARLINE MUNOZ 2024 120 [place] [facility] SERTRALINE HCL 100MG TAB TAKE ONE TABLET BY MOUTH DAILY FOR MOOD ORAL DISCONT INUED (EDIT) 11/12/2024 [id number] 4 HOLLIE VAN 2023 90 [place] [facility] SERTRALINE HCL 50MG TAB TAKE FOUR TABLETS BY MOUTH DAILY FOR MOOD ORAL DISCONT INUED (EDIT) 03/14/2025 [id number] 5 CHARLINE MUNOZ 2023 120 [place] [facility] SERTRALINE HCL 50MG TAB TAKE TWO AND ONE-HALF TABLETS BY MOUTH DAILY FOR 7 DAYS, THEN TAKE THREE TABLETS DAILY FOR 7 DAYS, THEN TAKE THREE AND ONE-HALF TABLETS DAILY FOR 7 DAYS, THEN TAKE FOUR TABLETS DAILY FOR MOOD ORAL DISCONT INUED 03/14/2025 [id number] 4 CHARLINE MUNOZ 2023 99 [place] [facility] SINUS RINSE NEILMED PKT USE 1 PACKET FOR NASAL IRRIGATI ON DIRECTED TWICE A DAY FOR NASAL CONGESTI ON -MIX DIRECTED ON PACKAGE WITH DISTILLE D WATER THEN FOLLOW DIRECTIO NS ON PACKAGE NOT APPLIC ABLE ACTIVE 09/15/2025 [id number] 5 MARYCARMEN NORTON 2024 200 [place] [facility] SINUS RINSE NEILMED REGULAR KIT USE KIT TO IRRIGATE NOSE TWICE A DAY FOR NASAL CONGESTI ON -MIX DIRECTED ON PACKAGE WITH DISTILLE D WATER THEN FOLLOW DIRECTIO NS ON PACKAGE. REPLACE BOTTLE EVERY 3 MONTHS NASAL ACTIVE 09/15/2025 [id number] 5 MARYCARMEN NORTON 2024 1 [place] [facility] SODIUM CHLORIDE 0.65% SOLN,NASAL SPRAY SPRAY 2 SPRAYS IN EACH NOSTRIL SIX TIMES A DAY FOR CONGESTI ON NASAL ACTIVE 09/15/2025 [id number] 5 MARYCARMEN NORTON 2024 135 [place] [facility] TRAMADOL HCL 50MG TAB TAKE ONE TABLET BY MOUTH THREE TIMES A DAY FOR PAIN MAY CAUSE DROWSINE SS ORAL ACTIVE 03/11/2025 [id number] 5 HOLLIE VAN 2024 90 [place] [facility] TRAZODONE HCL 100MG TAB TAKE ONE TABLET BY MOUTH AT BEDTIME FOR SLEEP ORAL SUSPEND ED 10/17/2025 [id number] 5 HOLLIE VAN 2024 90 [place] TRAZODONE HCL 100MG TAB TAKE ONE TABLET BY MOUTH AT BEDTIME FOR SLEEP ORAL DISCONT INUED 10/29/2024 [id number] 5 HOLLIE VAN 2023 90 [place] [facility] UBROGEPANT 100MG TAB TAKE ONE TABLET BY MOUTH ONCE NEEDED FOR MIGRAINE S -TAKE AT ONSET OF HEADACHE . MAY REPEAT DOSE IN 2 HOURS IF NEEDED. ORAL ACTIVE 11/12/2025 [id number] 5 JASON ENGLAND 2024 10 [place] [facility] UBROGEPANT 100MG TAB TAKE ONE TABLET BY MOUTH DIRECTED ORAL ACTIVE [facility]OMINO [facility]23 [facility] Allergies, Adverse Reactions, Alerts Combined list of allergies from Department of Defense and Veterans Affairs facilities. It does not include entries that were removed or entered in error. Substance Category Reaction Severity Reaction type Status Date Reported Comments Source ATORVASTATIN Propensity to adverse reactions to drug (finding) Cramp active 3 [facility] AUGMENTIN Propensity to adverse reactions to drug (finding) Eruption active 2 [facility] CODEINE Drug allergy (disorder) Urticaria active 7 [facility] DARVOCET-N Propensity to adverse reactions to drug (finding) Urticaria active 7 [facility] LISINOPRIL Propensity to adverse reactions to drug (finding) Cough active 2 [facility] OXYCODONE Drug allergy (disorder) Urticaria active 7 [facility] PERCOCET Propensity to adverse reactions to drug (finding) Urticaria active 7 [facility] PROPOXYPHENE Drug allergy (disorder) Urticaria active 7 [facility] Immunizations Combined list of available immunizations from the Department of Defense and [facility] facilities. Immunization Series Date Given Administered By Site Reaction Lot Number CVX Code Drug Deputy Coroner Status Comments Source HEPB-CPG 2022 JUAQUIN ESPINOSA RIGHT DELTO ID [id number] 189 complet ed [facility] [place] [facility] [place], [facility] HEPB-CPG 2022 AUGIE KHAN LEFT DELTO ID [id number] 189 complet ed [facility] [place] [facility] [place], [facility] INFLUENZA, UNSPECIFIED FORMULATION 2021 88 complet ed HISTORICA L INFORMATI ON - FROM PATIENT'S RECALL, [facility] PNEUMOCOCCAL CONJUGATE PCV20, POLYSACCHARID E [id number] CONJUGATE, ADJUVANT, PF 2021 216 complet ed [facility] ZOSTER RECOMBINANT 2 2021 187 complet ed [facility] ZOSTER RECOMBINANT 1 2021 187 complet ed [facility] COVID-19 (PFIZER), MRNA, LNP-S, PF, 30 MCG/0.3 ML DOSE 2 2020 208 complet ed [facility] COVID-19 (PFIZER), MRNA, LNP-S, PF, 30 MCG/0.3 ML DOSE 1 2020 208 complet ed [facility] DTP 2011 AQUILES OLVERA 01 [facility] Results Combined list of recent chemistry, hematology and other laboratory results from Department of Defense and Veterans Affairs, ranging from 15 months to all on record, depending upon the facility. Order Name Results Value Reference Range Date Interpretation Specimen Comments Source LACTIC ACID LACTATE [MOLES/VOLU ME] IN SERUM OR PLASMA 1.5 mmol/L 0.5 - 2.2 10/04 Specimen Type: PLASMA No comment entered. Ordering Provider: DAVIDE WATSON Report Released Date/Time: Oct 04, 2024 05:14 PM Reporting Lab: [address] [address] Performing Lab: [address] [address] [facility] HIGH SENSITIVI TY TROPONIN I TROPONIN I.CARDIAC [MASS/VOLUM E] IN SERUM OR PLASMA BY HIGH SENSITIVITY METHOD 4 4 - 14 10/04 Specimen Type: PLASMA Comment: Reference Ranges Females: 4 - 14 ng/L Males: 4 - 35 ng/L Limit of Quantitatio n: 4 ng/L Significant High-Sensit ivity Troponin I Delta at 2 hours, either rising or falling: >10 ng/L. Once baseline and 2-hour High-Sensit ivity Troponin I results are available, the Provider ordering the tests will calculate the HS-Troponin I Delta, the difference between the two values. High-Tropon in I values greater than the 99th percentile with a rising or falling pattern (a change of >10 ng/L between the baseline and 2-hour samples) highly suggest acute cardiac injury, whereas values for females 4-14 ng/L and males 4-35 ng/L require further clinician assessment. Acute cardiac injury does not necessarily equate to acute myocardial infarction. Additional clinical criteria are necessary for the diagnosis of Specimens from individuals with elevated levels of fibrinogen may demonstrate falsely elevated values. This assay is susceptible to interferenc e from total protein >8.8 g/dL. Total protein values from 9.0 to 12.0 g/dL decrease Troponin values at 500 ng/L by up to -16.3%. Although designed to minimize the effects of HAMA, heterophili c antibodies, and RF, the assay results may be impacted in a falsely negative way by these proteins. A High-Sensit ivity Troponin I information resource can be reached in CPRS in the Tools menu, under the Education tab. Estimated Glomerular Filtration Rate (eGFR) calculated using the 2020 Chronic Kidney Disease-Epi demiology (CKD-EPI) Collaborati on creatinine equation; units of measure are mL/min/1.73 m2. Results are only valid for adults (>=18 years) whose serum creatinine is in a steady state. eGFR calculation s are not valid for patients with acute kidney injury and for patients on dialysis. Creatinine- based estimates of kidney function may also be inaccurate in patients with reduced creatinine generation due to decreased muscle mass (e.g., malnutritio n, severe hypoalbumin emia, sarcopenia, chronic neuromuscul ar disease, amputations , severe heart failure or liver disease) and in patients with increased creatinine generation due to increased muscle mass (e.g., muscle builders, anabolic steroids) or increased dietary intake. As drug clearance is proportiona l to total GFR and not GFR indexed to body surface area (BSA), in individuals with a BSA substantial ly different than 1.73 m2, drug dosing should be based on the reported eGFR value de-indexed from BSA by multiplying by the individual' s BSA and dividing by 1.73. CKD is diagnosed based on abnormaliti es of kidney structure or function, present for >3 months, with implication s for health and disease. CKD is classified and staged based on cause, eGFR and albuminuria (quantified as urine albumin to creatinine ratio). An eGFR >60 mL/min/1.73 m2 in the absence of increased urine albumin excretion or structural abnormaliti es does not represent CKD. eGFR CKD Interpretat ion (mL/min/1.7 3 m2) stage >=90 G1 Normal 60-89 G2 Mild decrease 45-59 G3A Mild to moderate decrease 30-44 G3B Moderate to severe decrease 15-29 G4 Severe decrease <15 G5 Kidney failure Ordering Provider: DAVIDE WATSON Report Released Date/Time: Oct 04, 2024 05:14 PM Reporting Lab: [facility] [address] [facility] [address] Performing Lab: [place] [facility] [address] [facility] [address] [facility] CK TOTAL CREATINE KINASE [ENZYMATIC ACTIVITY/VO LUME] IN SERUM OR PLASMA 167 U/L 29 - 168 10/04 Specimen Type: PLASMA Comment: Reference Ranges Females: 4 - 14 ng/L Males: 4 - 35 ng/L Limit of Quantitatio n: 4 ng/L Significant High-Sensit ivity Troponin I Delta at 2 hours, either rising or falling: >10 ng/L. Once baseline and 2-hour High-Sensit ivity Troponin I results are available, the Provider ordering the tests will calculate the HS-Troponin I Delta, the difference between the two values. High-Tropon in I values greater than the 99th percentile with a rising or falling pattern (a change of >10 ng/L between the baseline and 2-hour samples) highly suggest acute cardiac injury, whereas values for females 4-14 ng/L and males 4-35 ng/L require further clinician assessment. Acute cardiac injury does not necessarily equate to acute myocardial infarction. Additional clinical criteria are necessary for the diagnosis of Specimens from individuals with elevated levels of fibrinogen may demonstrate falsely elevated values. This assay is susceptible to interferenc e from total protein >8.8 g/dL. Total protein values from 9.0 to 12.0 g/dL decrease Troponin values at 500 ng/L by up to -16.3%. Although designed to minimize the effects of HAMA, heterophili c antibodies, and RF, the assay results may be impacted in a falsely negative way by these proteins. A High-Sensit ivity Troponin I information resource can be reached in [employer]S in the Tools menu, under the Education tab. Estimated Glomerular Filtration Rate (eGFR) calculated using the 2020 Chronic Kidney Disease-Epi demiology (CKD-EPI) Collaborati on creatinine equation; units of measure are mL/min/1.73 m2. Results are only valid for adults (>=18 years) whose serum creatinine is in a steady state. eGFR calculation s are not valid for patients with acute kidney injury and for patients on dialysis. Creatinine- based estimates of kidney function may also be inaccurate in patients with reduced creatinine generation due to decreased muscle mass (e.g., malnutritio n, severe hypoalbumin emia, sarcopenia, chronic neuromuscul ar disease, amputations , severe heart failure or liver disease) and in patients with increased creatinine generation due to increased muscle mass (e.g., muscle builders, anabolic steroids) or increased dietary intake. As drug clearance is proportiona l to total GFR and not GFR indexed to body surface area (BSA), in individuals with a BSA substantial ly different than 1.73 m2, drug dosing should be based on the reported eGFR value de-indexed from BSA by multiplying by the individual' s BSA and dividing by 1.73. CKD is diagnosed based on abnormaliti es of kidney structure or function, present for >3 months, with implication s for health and disease. CKD is classified and staged based on cause, eGFR and albuminuria (quantified as urine albumin to creatinine ratio). An eGFR >60 mL/min/1.73 m2 in the absence of increased urine albumin excretion or structural abnormaliti es does not represent CKD. eGFR CKD Interpretat ion (mL/min/1.7 3 m2) stage >=90 G1 Normal 60-89 G2 Mild decrease 45-59 G3A Mild to moderate decrease 30-44 G3B Moderate to severe decrease 15-29 G4 Severe decrease <15 G5 Kidney failure Ordering Provider: DAVIDE WATSON Report Released Date/Time: Oct 04, 2024 05:14 PM Reporting Lab: [facility] [address] [address] Performing Lab: [facility] [address] [address] [facility] BNP (TERAN) NATRIURETIC PEPTIDE B [MASS/VOLUM E] IN SERUM OR PLASMA 21 pg/mL 0 - 100 10/04 Specimen Type: PLASMA Comment: BNP results less than or equal to 100 pg/ml are representat bar[place] of normal values in patients without CHF. BNP results greater than 100 pg/ml are considered abnormal and suggestive of CHF. Higher BNP concentrati ons in the first 72 hours after Acute Coronary Syndrome are associated with an increased risk of , myocardial infarction and CHF. Ordering Provider: DAVIDE WATSON Report Released Date/Time: Oct 04, 2024 05:14 PM Reporting Lab: [facility] [address] [facility] [address] Performing Lab: [facility] [address] [facility] [address] [facility] MAGNESIUM MAGNESIUM [MASS/VOLUM E] IN SERUM OR PLASMA 1.7 mg/dL 1.6 - 2.6 10/04 Specimen Type: PLASMA Comment: Reference Ranges Females: 4 - 14 ng/L Males: 4 - 35 ng/L Limit of Quantitatio n: 4 ng/L Significant High-Sensit ivity Troponin I Delta at 2 hours, either rising or falling: >10 ng/L. Once baseline and 2-hour High-Sensit ivity Troponin I results are available, the Provider ordering the tests will calculate the HS-Troponin I Delta, the difference between the two values. High-Tropon in I values greater than the 99th percentile with a rising or falling pattern (a change of >10 ng/L between the baseline and 2-hour samples) highly suggest acute cardiac injury, whereas values for females 4-14 ng/L and males 4-35 ng/L require further clinician assessment. Acute cardiac injury does not necessarily equate to acute myocardial infarction. Additional clinical criteria are necessary for the diagnosis of Specimens from individuals with elevated levels of fibrinogen may demonstrate falsely elevated values. This assay is susceptible to interferenc e from total protein >8.8 g/dL. Total protein values from 9.0 to 12.0 g/dL decrease Troponin values at 500 ng/L by up to -16.3%. Although designed to minimize the effects of HAMA, heterophili c antibodies, and RF, the assay results may be impacted in a falsely negative way by these proteins. A High-Sensit ivity Troponin I information resource can be reached in CPRS in the Tools menu, under the Education tab. Estimated Glomerular Filtration Rate (eGFR) calculated using the 2020 Chronic Kidney Disease-Epi demiology (CKD-EPI) Collaborati on creatinine equation; units of measure are mL/min/1.73 m2. Results are only valid for adults (>=18 years) whose serum creatinine is in a steady state. eGFR calculation s are not valid for patients with acute kidney injury and for patients on dialysis. Creatinine- based estimates of kidney function may also be inaccurate in patients with reduced creatinine generation due to decreased muscle mass (e.g., malnutritio n, severe hypoalbumin emia, sarcopenia, chronic neuromuscul ar disease, amputations , severe heart failure or liver disease) and in patients with increased creatinine generation due to increased muscle mass (e.g., muscle builders, anabolic steroids) or increased dietary intake. As drug clearance is proportiona l to total GFR and not GFR indexed to body surface area (BSA), in individuals with a BSA substantial ly different than 1.73 m2, drug dosing should be based on the reported eGFR value de-indexed from BSA by multiplying by the individual' s BSA and dividing by 1.73. CKD is diagnosed based on abnormaliti es of kidney structure or function, present for >3 months, with implication s for health and disease. CKD is classified and staged based on cause, eGFR and albuminuria (quantified as urine albumin to creatinine ratio). An eGFR >60 mL/min/1.73 m2 in the absence of increased urine albumin excretion or structural abnormaliti es does not represent CKD. eGFR CKD Interpretat ion (mL/min/1.7 3 m2) stage >=90 G1 Normal 60-89 G2 Mild decrease 45-59 G3A Mild to moderate decrease 30-44 G3B Moderate to severe decrease 15-29 G4 Severe decrease <15 G5 Kidney failure Ordering Provider: DAVIDE WATSON Report Released Date/Time: Oct 04, 2024 05:14 PM Reporting Lab: [facility] [address] [address] Performing Lab: [facility] [address] [address] [facility] AUTOMATED DIFF LYMPHOCYTES /100 LEUKOCYTES IN BLOOD BY AUTOMATED COUNT 28.3 24.0 - 44.0 10/04 Specimen Type: BLOOD Comment: ~STAT Ordering Provider: DAVIDE WATSON Report Released Date/Time: Oct 04, 2024 05:14 PM Reporting Lab: [facility] [address] [address] Performing Lab: [facility] [address] [facility] AUTOMATED DIFF MONOCYTES/1 00 LEUKOCYTES IN BLOOD BY AUTOMATED COUNT 4.3 0.1 - 6.0 10/04 Specimen Type: BLOOD Comment: ~STAT Ordering Provider: DAVIDE WATSON Report Released Date/Time: Oct 04, 2024 05:14 PM Reporting Lab: [address] [address] Performing Lab: [address] [address] [facility] AUTOMATED DIFF GRANULOCYTE S/100 LEUKOCYTES IN BLOOD BY AUTOMATED COUNT 64.8 42.0 - 75.0 10/04 Specimen Type: BLOOD Comment: ~STAT Ordering Provider: DAVIDE WATSON Report Released Date/Time: Oct 04, 2024 05:14 PM Reporting Lab: [address] [address] Performing Lab: [address] [address] [facility] AUTOMATED DIFF LYMPHOCYTES [#/VOLUME] IN BLOOD BY AUTOMATED COUNT 2.91 10*3/u L 1.20 - 3.40 10/04 Specimen Type: BLOOD Comment: ~STAT Ordering Provider: DAVIDE WATSON Report Released Date/Time: Oct 04, 2024 05:14 PM Reporting Lab: [address] [address] Performing Lab: [address] [address] [facility] AUTOMATED DIFF MONOCYTES [#/VOLUME] IN BLOOD BY AUTOMATED COUNT 0.44 10*3/u L 0.00 - 0.60 10/04 Specimen Type: BLOOD Comment: ~STAT Ordering Provider: DAVIDE WATSON Report Released Date/Time: Oct 04, 2024 05:14 PM Reporting Lab: [address] [address] Performing Lab: [address] [address] [facility] AUTOMATED DIFF GRANULOCYTE S [#/VOLUME] IN BLOOD BY AUTOMATED COUNT 6.66 10*3/u L 1.40 - 6.50 10/04 H Specimen Type: BLOOD Comment: ~STAT Ordering Provider: DAVIDE WATSON Report Released Date/Time: Oct 04, 2024 05:14 PM Reporting Lab: [facility] [address] Performing Lab: [place] [phone] [place] [address] AUTOMATED DIFF BASOPHILS/1 00 LEUKOCYTES IN BLOOD BY AUTOMATED COUNT 0.5 0.0 - 3.0 10/04 Specimen Type: BLOOD Comment: ~STAT Ordering Provider: DAVIDE WATSON Report Released Date/Time: Oct 04, 2024 05:14 PM Reporting Lab: [place] [phone] Performing Lab: [place] [phone] [place] [address] AUTOMATED DIFF BASOPHILS [#/VOLUME] IN BLOOD BY AUTOMATED COUNT 0.05 10*3/u L 0.00 - 0.20 10/04 Specimen Type: BLOOD Comment: ~STAT Ordering Provider: DAVIDE WATSON Report Released Date/Time: Oct 04, 2024 05:14 PM Reporting Lab: [address] [address] Performing Lab: [address] [phone] [place] [address] AUTOMATED DIFF EOSINOPHILS /100 LEUKOCYTES IN BLOOD BY AUTOMATED COUNT 1.8 0.0 - 10.0 10/04 Specimen Type: BLOOD Comment: ~STAT Ordering Provider: DAVIDE WATSON Report Released Date/Time: Oct 04, 2024 05:14 PM Reporting Lab: [address] [address] Performing Lab: [address] [phone] [place] [address] AUTOMATED DIFF EOSINOPHILS [#/VOLUME] IN BLOOD BY AUTOMATED COUNT 0.19 10*3/u L 0.00 - 0.70 10/04 Specimen Type: BLOOD Comment: ~STAT Ordering Provider: DAVIDE WATSON Report Released Date/Time: Oct 04, 2024 05:14 PM Reporting Lab: [facility] [address] [address] Performing Lab: [facility] [address] [address] [facility] AUTOMATED DIFF IMMATURE GRANULOCYTE S/100 LEUKOCYTES IN BLOOD 0.3 0.0 - 0.5 10/04 Specimen Type: BLOOD Comment: ~STAT Ordering Provider: DAVIDE WATSON Report Released Date/Time: Oct 04, 2024 05:14 PM Reporting Lab: [facility] [address] [address] Performing Lab: [facility] [address] [address] [facility] AUTOMATED DIFF IMMATURE GRANULOCYTE S [#/VOLUME] IN BLOOD 0.03 10*3/u L 0.00 - 0.06 10/04 Specimen Type: BLOOD Comment: ~STAT Ordering Provider: DAVIDE WATSON Report Released Date/Time: Oct 04, 2024 05:14 PM Reporting Lab: [facility] [address] [address] Performing Lab: [facility] [address] [address] [facility] CBC/PLT LEUKOCYTES [#/VOLUME] IN BLOOD BY AUTOMATED COUNT 10.3 10*3/u L 5.0 - 10.0 10/04 H Specimen Type: BLOOD Comment: ~STAT Ordering Provider: DAVIDE WATSON Report Released Date/Time: Oct 04, 2024 05:14 PM Reporting Lab: [facility] [address] [address] Performing Lab: [facility] [address] [address] [facility] CBC/PLT ERYTHROCYTE S [#/VOLUME] IN BLOOD BY AUTOMATED COUNT 4.53 10*6/u L 4.2 - 5.4 10/04 Specimen Type: BLOOD Comment: ~STAT Ordering Provider: DAVIDE WATSON Report Released Date/Time: Oct 04, 2024 05:14 PM Reporting Lab: [facility] [address] [address] Performing Lab: [place] [phone] [facility] [address] [facility] CBC/PLT HEMOGLOBIN [MASS/VOLUM E] IN BLOOD 12.6 g/dL 12.0 - 16.0 10/04 Specimen Type: BLOOD Comment: ~STAT Ordering Provider: DAVIDE WATSON Report Released Date/Time: Oct 04, 2024 05:14 PM Reporting Lab: [address] [address] Performing Lab: [address] [address] [facility] CBC/PLT HEMATOCRIT [VOLUME FRACTION] OF BLOOD BY AUTOMATED COUNT 37.8 37.0 - 47.0 10/04 Specimen Type: BLOOD Comment: ~STAT Ordering Provider: DAVIDE WATSON Report Released Date/Time: Oct 04, 2024 05:14 PM Reporting Lab: [address] [address] Performing Lab: [address] [address] [facility] CBC/PLT MCV [ENTITIC VOLUME] BY AUTOMATED COUNT 83.4 fL 79.0 - 97.0 10/04 Specimen Type: BLOOD Comment: ~STAT Ordering Provider: DAVIDE WATSON Report Released Date/Time: Oct 04, 2024 05:14 PM Reporting Lab: [address] [address] Performing Lab: [address] [address] [facility] CBC/PLT MCH [ENTITIC MASS] BY AUTOMATED COUNT 27.8 pg 27.0 - 31.0 10/04 Specimen Type: BLOOD Comment: ~STAT Ordering Provider: DAVIDE WATSON Report Released Date/Time: Oct 04, 2024 05:14 PM Reporting Lab: [address] [phone] Performing Lab: [address] [address] [facility] CBC/PLT MCHC [MASS/VOLUM E] BY AUTOMATED COUNT 33.3 g/dL 32.0 - 36.0 10/04 Specimen Type: BLOOD Comment: ~STAT Ordering Provider: DAVIDE WATSON Report Released Date/Time: Oct 04, 2024 05:14 PM Reporting Lab: [place] [phone] Performing Lab: [address] [phone] [place] [address] CBC/PLT PLATELETS [#/VOLUME] IN BLOOD 286 10*3/u L 150 - 450 10/04 Specimen Type: BLOOD Comment: ~STAT Ordering Provider: DAVIDE WATSON Report Released Date/Time: Oct 04, 2024 05:14 PM Reporting Lab: [place] [phone] Performing Lab: [place] [phone] [place] [address] CBC/PLT PLATELET MEAN VOLUME [ENTITIC VOLUME] IN BLOOD 10.9 fL 9.0 - 13.1 10/04 Specimen Type: BLOOD Comment: ~STAT Ordering Provider: DAVIDE WATSON Report Released Date/Time: Oct 04, 2024 05:14 PM Reporting Lab: [address] [address] Performing Lab: [place] [phone] [place] [address] CBC/PLT ERYTHROCYTE DISTRIBUTIO N WIDTH [ENTITIC VOLUME] BY AUTOMATED COUNT 13.7 11.0 - 16.0 10/04 Specimen Type: BLOOD Comment: ~STAT Ordering Provider: DAVIDE WATSON Report Released Date/Time: Oct 04, 2024 05:14 PM Reporting Lab: [address] [address] Performing Lab: [address] [phone] [place] [address] CBC/PLT NUCLEATED ERYTHROCYTE S/100 ERYTHROCYTE S IN BLOOD 0.0 0.0 - 0.0 10/04 Specimen Type: BLOOD Comment: ~STAT Ordering Provider: DAVIDE WATSON Report Released Date/Time: Oct 04, 2024 05:14 PM Reporting Lab: [facility] [address] [facility] [address] Performing Lab: [facility] [address] [facility] [address] [facility] PANEL 1 CREATININE [MASS/VOLUM E] IN SERUM OR PLASMA 0.72 mg/dL 0.57 - 1.11 10/04 Specimen Type: PLASMA Comment: Reference Ranges Females: 4 - 14 ng/L Males: 4 - 35 ng/L Limit of Quantitatio n: 4 ng/L Significant High-Sensit ivity Troponin I Delta at 2 hours, either rising or falling: >10 ng/L. Once baseline and 2-hour High-Sensit ivity Troponin I results are available, the Provider ordering the tests will calculate the HS-Troponin I Delta, the difference between the two values. High-Tropon in I values greater than the 99th percentile with a rising or falling pattern (a change of >10 ng/L between the baseline and 2-hour samples) highly suggest acute cardiac injury, whereas values for females 4-14 ng/L and males 4-35 ng/L require further clinician assessment. Acute cardiac injury does not necessarily equate to acute myocardial infarction. Additional clinical criteria are necessary for the diagnosis of Specimens from individuals with elevated levels of fibrinogen may demonstrate falsely elevated values. This assay is susceptible to interferenc e from total protein >8.8 g/dL. Total protein values from 9.0 to 12.0 g/dL decrease Troponin values at 500 ng/L by up to -16.3%. Although designed to minimize the effects of HAMA, heterophili c antibodies, and RF, the assay results may be impacted in a falsely negative way by these proteins. A High-Sensit ivity Troponin I information resource can be reached in [employer]S in the Tools menu, under the Education tab. Estimated Glomerular Filtration Rate (eGFR) calculated using the 2020 Chronic Kidney Disease-Epi demiology (CKD-EPI) Collaborati on creatinine equation; units of measure are mL/min/1.73 m2. Results are only valid for adults (>=18 years) whose serum creatinine is in a steady state. eGFR calculation s are not valid for patients with acute kidney injury and for patients on dialysis. Creatinine- based estimates of kidney function may also be inaccurate in patients with reduced creatinine generation due to decreased muscle mass (e.g., malnutritio n, severe hypoalbumin emia, sarcopenia, chronic neuromuscul ar disease, amputations , severe heart failure or liver disease) and in patients with increased creatinine generation due to increased muscle mass (e.g., muscle builders, anabolic steroids) or increased dietary intake. As drug clearance is proportiona l to total GFR and not GFR indexed to body surface area (BSA), in individuals with a BSA substantial ly different than 1.73 m2, drug dosing should be based on the reported eGFR value de-indexed from BSA by multiplying by the individual' s BSA and dividing by 1.73. CKD is diagnosed based on abnormaliti es of kidney structure or function, present for >3 months, with implication s for health and disease. CKD is classified and staged based on cause, eGFR and albuminuria (quantified as urine albumin to creatinine ratio). An eGFR >60 mL/min/1.73 m2 in the absence of increased urine albumin excretion or structural abnormaliti es does not represent CKD. eGFR CKD Interpretat ion (mL/min/1.7 3 m2) stage >=90 G1 Normal 60-89 G2 Mild decrease 45-59 G3A Mild to moderate decrease 30-44 G3B Moderate to severe decrease 15-29 G4 Severe decrease <15 G5 Kidney failure Ordering Provider: DAVIDE WATSON Report Released Date/Time: Oct 04, 2024 05:14 PM Reporting Lab: [facility] [address] [phone] Performing Lab: [facility] [address] [phone] [facility] PANEL 1 UREA NITROGEN [MASS/VOLUM E] IN SERUM OR PLASMA 13 mg/dL 10/04 Specimen Type: PLASMA Comment: Reference Ranges Females: 4 - 14 ng/L Males: 4 - 35 ng/L Limit of Quantitatio n: 4 ng/L Significant High-Sensit ivity Troponin I Delta at 2 hours, either rising or falling: >10 ng/L. Once baseline and 2-hour High-Sensit ivity Troponin I results are available, the Provider ordering the tests will calculate the HS-Troponin I Delta, the difference between the two values. High-Tropon in I values greater than the 99th percentile with a rising or falling pattern (a change of >10 ng/L between the baseline and 2-hour samples) highly suggest acute cardiac injury, whereas values for females 4-14 ng/L and males 4-35 ng/L require further clinician assessment. Acute cardiac injury does not necessarily equate to acute myocardial infarction. Additional clinical criteria are necessary for the diagnosis of Specimens from individuals with elevated levels of fibrinogen may demonstrate falsely elevated values. This assay is susceptible to interferenc e from total protein >8.8 g/dL. Total protein values from 9.0 to 12.0 g/dL decrease Troponin values at 500 ng/L by up to -16.3%. Although designed to minimize the effects of HAMA, heterophili c antibodies, and RF, the assay results may be impacted in a falsely negative way by these proteins. A High-Sensit ivity Troponin I information resource can be reached in [facility] in the Tools menu, under the Education tab. Estimated Glomerular Filtration Rate (eGFR) calculated using the 2020 Chronic Kidney Disease-Epi demiology (CKD-EPI) Collaborati on creatinine equation; units of measure are mL/min/1.73 m2. Results are only valid for adults (>=18 years) whose serum creatinine is in a steady state. eGFR calculation s are not valid for patients with acute kidney injury and for patients on dialysis. Creatinine- based estimates of kidney function may also be inaccurate in patients with reduced creatinine generation due to decreased muscle mass (e.g., malnutritio n, severe hypoalbumin emia, sarcopenia, chronic neuromuscul ar disease, amputations , severe heart failure or liver disease) and in patients with increased creatinine generation due to increased muscle mass (e.g., muscle builders, anabolic steroids) or increased dietary intake. As drug clearance is proportiona l to total GFR and not GFR indexed to body surface area (BSA), in individuals with a BSA substantial ly different than 1.73 m2, drug dosing should be based on the reported eGFR value de-indexed from BSA by multiplying by the individual' s BSA and dividing by 1.73. CKD is diagnosed based on abnormaliti es of kidney structure or function, present for >3 months, with implication s for health and disease. CKD is classified and staged based on cause, eGFR and albuminuria (quantified as urine albumin to creatinine ratio). An eGFR >60 mL/min/1.73 m2 in the absence of increased urine albumin excretion or structural abnormaliti es does not represent CKD. eGFR CKD Interpretat ion (mL/min/1.7 3 m2) stage >=90 G1 Normal 60-89 G2 Mild decrease 45-59 G3A Mild to moderate decrease 30-44 G3B Moderate to severe decrease 15-29 G4 Severe decrease <15 G5 Kidney failure Ordering Provider: DAVIDE WATSON Report Released Date/Time: Oct 04, 2024 05:14 PM Reporting Lab: [facility] [address] [phone] Performing Lab: [facility] [address] [phone] [facility] PANEL 1 GLUCOSE [MASS/VOLUM E] IN SERUM OR PLASMA 93 mg/dL 74 - 100 10/04 Specimen Type: PLASMA Comment: Reference Ranges Females: 4 - 14 ng/L Males: 4 - 35 ng/L Limit of Quantitatio n: 4 ng/L Significant High-Sensit ivity Troponin I Delta at 2 hours, either rising or falling: >10 ng/L. Once baseline and 2-hour High-Sensit ivity Troponin I results are available, the Provider ordering the tests will calculate the HS-Troponin I Delta, the difference between the two values. High-Tropon in I values greater than the 99th percentile with a rising or falling pattern (a change of >10 ng/L between the baseline and 2-hour samples) highly suggest acute cardiac injury, whereas values for females 4-14 ng/L and males 4-35 ng/L require further clinician assessment. Acute cardiac injury does not necessarily equate to acute myocardial infarction. Additional clinical criteria are necessary for the diagnosis of Specimens from individuals with elevated levels of fibrinogen may demonstrate falsely elevated values. This assay is susceptible to interferenc e from total protein >8.8 g/dL. Total protein values from 9.0 to 12.0 g/dL decrease Troponin values at 500 ng/L by up to -16.3%. Although designed to minimize the effects of HAMA, heterophili c antibodies, and RF, the assay results may be impacted in a falsely negative way by these proteins. A High-Sensit ivity Troponin I information resource can be reached in [facility] in the Tools menu, under the Education tab. Estimated Glomerular Filtration Rate (eGFR) calculated using the 2020 Chronic Kidney Disease-Epi demiology (CKD-EPI) Collaborati on creatinine equation; units of measure are mL/min/1.73 m2. Results are only valid for adults (>=18 years) whose serum creatinine is in a steady state. eGFR calculation s are not valid for patients with acute kidney injury and for patients on dialysis. Creatinine- based estimates of kidney function may also be inaccurate in patients with reduced creatinine generation due to decreased muscle mass (e.g., malnutritio n, severe hypoalbumin emia, sarcopenia, chronic neuromuscul ar disease, amputations , severe heart failure or liver disease) and in patients with increased creatinine generation due to increased muscle mass (e.g., muscle builders, anabolic steroids) or increased dietary intake. As drug clearance is proportiona l to total GFR and not GFR indexed to body surface area (BSA), in individuals with a BSA substantial ly different than 1.73 m2, drug dosing should be based on the reported eGFR value de-indexed from BSA by multiplying by the individual' s BSA and dividing by 1.73. CKD is diagnosed based on abnormaliti es of kidney structure or function, present for >3 months, with implication s for health and disease. CKD is classified and staged based on cause, eGFR and albuminuria (quantified as urine albumin to creatinine ratio). An eGFR >60 mL/min/1.73 m2 in the absence of increased urine albumin excretion or structural abnormaliti es does not represent CKD. eGFR CKD Interpretat ion (mL/min/1.7 3 m2) stage >=90 G1 Normal 60-89 G2 Mild decrease 45-59 G3A Mild to moderate decrease 30-44 G3B Moderate to severe decrease 15-29 G4 Severe decrease <15 G5 Kidney failure Ordering Provider: DAVIDE WATSON Report Released Date/Time: Oct 04, 2024 05:14 PM Reporting Lab: [facility] [address] [facility] [phone] Performing Lab: [facility] [address] [facility] [phone] [facility] PANEL 1 SODIUM [MOLES/VOLU ME] IN SERUM OR PLASMA 141 mmol/L 136 - 145 10/04 Specimen Type: PLASMA Comment: Reference Ranges Females: 4 - 14 ng/L Males: 4 - 35 ng/L Limit of Quantitatio n: 4 ng/L Significant High-Sensit ivity Troponin I Delta at 2 hours, either rising or falling: >10 ng/L. Once baseline and 2-hour High-Sensit ivity Troponin I results are available, the Provider ordering the tests will calculate the HS-Troponin I Delta, the difference between the two values. High-Tropon in I values greater than the 99th percentile with a rising or falling pattern (a change of >10 ng/L between the baseline and 2-hour samples) highly suggest acute cardiac injury, whereas values for females 4-14 ng/L and males 4-35 ng/L require further clinician assessment. Acute cardiac injury does not necessarily equate to acute myocardial infarction. Additional clinical criteria are necessary for the diagnosis of Specimens from individuals with elevated levels of fibrinogen may demonstrate falsely elevated values. This assay is susceptible to interferenc e from total protein >8.8 g/dL. Total protein values from 9.0 to 12.0 g/dL decrease Troponin values at 500 ng/L by up to -16.3%. Although designed to minimize the effects of HAMA, heterophili c antibodies, and RF, the assay results may be impacted in a falsely negative way by these proteins. A High-Sensit ivity Troponin I information resource can be reached in [facility] in the Tools menu, under the Education tab. Estimated Glomerular Filtration Rate (eGFR) calculated using the 2020 Chronic Kidney Disease-Epi demiology (CKD-EPI) Collaborati on creatinine equation; units of measure are mL/min/1.73 m2. Results are only valid for adults (>=18 years) whose serum creatinine is in a steady state. eGFR calculation s are not valid for patients with acute kidney injury and for patients on dialysis. Creatinine- based estimates of kidney function may also be inaccurate in patients with reduced creatinine generation due to decreased muscle mass (e.g., malnutritio n, severe hypoalbumin emia, sarcopenia, chronic neuromuscul ar disease, amputations , severe heart failure or liver disease) and in patients with increased creatinine generation due to increased muscle mass (e.g., muscle builders, anabolic steroids) or increased dietary intake. As drug clearance is proportiona l to total GFR and not GFR indexed to body surface area (BSA), in individuals with a BSA substantial ly different than 1.73 m2, drug dosing should be based on the reported eGFR value de-indexed from BSA by multiplying by the individual' s BSA and dividing by 1.73. CKD is diagnosed based on abnormaliti es of kidney structure or function, present for >3 months, with implication s for health and disease. CKD is classified and staged based on cause, eGFR and albuminuria (quantified as urine albumin to creatinine ratio). An eGFR >60 mL/min/1.73 m2 in the absence of increased urine albumin excretion or structural abnormaliti es does not represent CKD. eGFR CKD Interpretat ion (mL/min/1.7 3 m2) stage >=90 G1 Normal 60-89 G2 Mild decrease 45-59 G3A Mild to moderate decrease 30-44 G3B Moderate to severe decrease 15-29 G4 Severe decrease <15 G5 Kidney failure Ordering Provider: DAVIDE WATSON Report Released Date/Time: Oct 04, 2024 05:14 PM Reporting Lab: [facility] [address] [phone] Performing Lab: [facility] [address] [phone] [facility] PANEL 1 POTASSIUM [MOLES/VOLU ME] IN SERUM OR PLASMA 3.7 mmol/L 3.5 - 5.1 10/04 Specimen Type: PLASMA Comment: Reference Ranges Females: 4 - 14 ng/L Males: 4 - 35 ng/L Limit of Quantitatio n: 4 ng/L Significant High-Sensit ivity Troponin I Delta at 2 hours, either rising or falling: >10 ng/L. Once baseline and 2-hour High-Sensit ivity Troponin I results are available, the Provider ordering the tests will calculate the HS-Troponin I Delta, the difference between the two values. High-Tropon in I values greater than the 99th percentile with a rising or falling pattern (a change of >10 ng/L between the baseline and 2-hour samples) highly suggest acute cardiac injury, whereas values for females 4-14 ng/L and males 4-35 ng/L require further clinician assessment. Acute cardiac injury does not necessarily equate to acute myocardial infarction. Additional clinical criteria are necessary for the diagnosis of Specimens from individuals with elevated levels of fibrinogen may demonstrate falsely elevated values. This assay is susceptible to interferenc e from total protein >8.8 g/dL. Total protein values from 9.0 to 12.0 g/dL decrease Troponin values at 500 ng/L by up to -16.3%. Although designed to minimize the effects of HAMA, heterophili c antibodies, and RF, the assay results may be impacted in a falsely negative way by these proteins. A High-Sensit ivity Troponin I information resource can be reached in [facility] in the Tools menu, under the Education tab. Estimated Glomerular Filtration Rate (eGFR) calculated using the 2020 Chronic Kidney Disease-Epi demiology (CKD-EPI) Collaborati on creatinine equation; units of measure are mL/min/1.73 m2. Results are only valid for adults (>=18 years) whose serum creatinine is in a steady state. eGFR calculation s are not valid for patients with acute kidney injury and for patients on dialysis. Creatinine- based estimates of kidney function may also be inaccurate in patients with reduced creatinine generation due to decreased muscle mass (e.g., malnutritio n, severe hypoalbumin emia, sarcopenia, chronic neuromuscul ar disease, amputations , severe heart failure or liver disease) and in patients with increased creatinine generation due to increased muscle mass (e.g., muscle builders, anabolic steroids) or increased dietary intake. As drug clearance is proportiona l to total GFR and not GFR indexed to body surface area (BSA), in individuals with a BSA substantial ly different than 1.73 m2, drug dosing should be based on the reported eGFR value de-indexed from BSA by multiplying by the individual' s BSA and dividing by 1.73. CKD is diagnosed based on abnormaliti es of kidney structure or function, present for >3 months, with implication s for health and disease. CKD is classified and staged based on cause, eGFR and albuminuria (quantified as urine albumin to creatinine ratio). An eGFR >60 mL/min/1.73 m2 in the absence of increased urine albumin excretion or structural abnormaliti es does not represent CKD. eGFR CKD Interpretat ion (mL/min/1.7 3 m2) stage >=90 G1 Normal 60-89 G2 Mild decrease 45-59 G3A Mild to moderate decrease 30-44 G3B Moderate to severe decrease 15-29 G4 Severe decrease <15 G5 Kidney failure Ordering Provider: DAVIDE WATSON Report Released Date/Time: Oct 04, 2024 05:14 PM Reporting Lab: [facility] [address] [phone] Performing Lab: [facility] [address] [phone] [facility] PANEL 1 CHLORIDE [MOLES/VOLU ME] IN SERUM OR PLASMA 107 mmol/L 98 - 107 10/04 Specimen Type: PLASMA Comment: Reference Ranges Females: 4 - 14 ng/L Males: 4 - 35 ng/L Limit of Quantitatio n: 4 ng/L Significant High-Sensit ivity Troponin I Delta at 2 hours, either rising or falling: >10 ng/L. Once baseline and 2-hour High-Sensit ivity Troponin I results are available, the Provider ordering the tests will calculate the HS-Troponin I Delta, the difference between the two values. High-Tropon in I values greater than the 99th percentile with a rising or falling pattern (a change of >10 ng/L between the baseline and 2-hour samples) highly suggest acute cardiac injury, whereas values for females 4-14 ng/L and males 4-35 ng/L require further clinician assessment. Acute cardiac injury does not necessarily equate to acute myocardial infarction. Additional clinical criteria are necessary for the diagnosis of Specimens from individuals with elevated levels of fibrinogen may demonstrate falsely elevated values. This assay is susceptible to interferenc e from total protein >8.8 g/dL. Total protein values from 9.0 to 12.0 g/dL decrease Troponin values at 500 ng/L by up to -16.3%. Although designed to minimize the effects of HAMA, heterophili c antibodies, and RF, the assay results may be impacted in a falsely negative way by these proteins. A High-Sensit ivity Troponin I information resource can be reached in [facility] in the Tools menu, under the Education tab. Estimated Glomerular Filtration Rate (eGFR) calculated using the 2020 Chronic Kidney Disease-Epi demiology (CKD-EPI) Collaborati on creatinine equation; units of measure are mL/min/1.73 m2. Results are only valid for adults (>=18 years) whose serum creatinine is in a steady state. eGFR calculation s are not valid for patients with acute kidney injury and for patients on dialysis. Creatinine- based estimates of kidney function may also be inaccurate in patients with reduced creatinine generation due to decreased muscle mass (e.g., malnutritio n, severe hypoalbumin emia, sarcopenia, chronic neuromuscul ar disease, amputations , severe heart failure or liver disease) and in patients with increased creatinine generation due to increased muscle mass (e.g., muscle builders, anabolic steroids) or increased dietary intake. As drug clearance is proportiona l to total GFR and not GFR indexed to body surface area (BSA), in individuals with a BSA substantial ly different than 1.73 m2, drug dosing should be based on the reported eGFR value de-indexed from BSA by multiplying by the individual' s BSA and dividing by 1.73. CKD is diagnosed based on abnormaliti es of kidney structure or function, present for >3 months, with implication s for health and disease. CKD is classified and staged based on cause, eGFR and albuminuria (quantified as urine albumin to creatinine ratio). An eGFR >60 mL/min/1.73 m2 in the absence of increased urine albumin excretion or structural abnormaliti es does not represent CKD. eGFR CKD Interpretat ion (mL/min/1.7 3 m2) stage >=90 G1 Normal 60-89 G2 Mild decrease 45-59 G3A Mild to moderate decrease 30-44 G3B Moderate to severe decrease 15-29 G4 Severe decrease <15 G5 Kidney failure Ordering Provider: DAVIDE WATSON Report Released Date/Time: Oct 04, 2024 05:14 PM Reporting Lab: [facility] [address] [phone] Performing Lab: [facility] [address] [phone] [facility] PANEL 1 CARBON DIOXIDE, TOTAL [MOLES/VOLU ME] IN SERUM OR PLASMA 23 mmol/L - 10/04 Specimen Type: PLASMA Comment: Reference Ranges Females: 4 - 14 ng/L Males: 4 - 35 ng/L Limit of Quantitatio n: 4 ng/L Significant High-Sensit ivity Troponin I Delta at 2 hours, either rising or falling: >10 ng/L. Once baseline and 2-hour High-Sensit ivity Troponin I results are available, the Provider ordering the tests will calculate the HS-Troponin I Delta, the difference between the two values. High-Tropon in I values greater than the 99th percentile with a rising or falling pattern (a change of >10 ng/L between the baseline and 2-hour samples) highly suggest acute cardiac injury, whereas values for females 4-14 ng/L and males 4-35 ng/L require further clinician assessment. Acute cardiac injury does not necessarily equate to acute myocardial infarction. Additional clinical criteria are necessary for the diagnosis of Specimens from individuals with elevated levels of fibrinogen may demonstrate falsely elevated values. This assay is susceptible to interferenc e from total protein >8.8 g/dL. Total protein values from 9.0 to 12.0 g/dL decrease Troponin values at 500 ng/L by up to -16.3%. Although designed to minimize the effects of HAMA, heterophili c antibodies, and RF, the assay results may be impacted in a falsely negative way by these proteins. A High-Sensit ivity Troponin I information resource can be reached in [facility] in the Tools menu, under the Education tab. Estimated Glomerular Filtration Rate (eGFR) calculated using the 2020 Chronic Kidney Disease-Epi demiology (CKD-EPI) Collaborati on creatinine equation; units of measure are mL/min/1.73 m2. Results are only valid for adults (>=18 years) whose serum creatinine is in a steady state. eGFR calculation s are not valid for patients with acute kidney injury and for patients on dialysis. Creatinine- based estimates of kidney function may also be inaccurate in patients with reduced creatinine generation due to decreased muscle mass (e.g., malnutritio n, severe hypoalbumin emia, sarcopenia, chronic neuromuscul ar disease, amputations , severe heart failure or liver disease) and in patients with increased creatinine generation due to increased muscle mass (e.g., muscle builders, anabolic steroids) or increased dietary intake. As drug clearance is proportiona l to total GFR and not GFR indexed to body surface area (BSA), in individuals with a BSA substantial ly different than 1.73 m2, drug dosing should be based on the reported eGFR value de-indexed from BSA by multiplying by the individual' s BSA and dividing by 1.73. CKD is diagnosed based on abnormaliti es of kidney structure or function, present for >3 months, with implication s for health and disease. CKD is classified and staged based on cause, eGFR and albuminuria (quantified as urine albumin to creatinine ratio). An eGFR >60 mL/min/1.73 m2 in the absence of increased urine albumin excretion or structural abnormaliti es does not represent CKD. eGFR CKD Interpretat ion (mL/min/1.7 3 m2) stage >=90 G1 Normal 60-89 G2 Mild decrease 45-59 G3A Mild to moderate decrease 30-44 G3B Moderate to severe decrease 15-29 G4 Severe decrease <15 G5 Kidney failure Ordering Provider: DAVIDE WATSON Report Released Date/Time: Oct 04, 2024 05:14 PM Reporting Lab: [facility] [address] [phone] Performing Lab: [facility] [address] [phone] [facility] PANEL 1 CALCIUM [MASS/VOLUM E] IN SERUM OR PLASMA 9.5 mg/dL 8.4 - 10.2 06/01 /2025 Specimen Type: PLASMA Comment: Reference Ranges Females: 4 - 14 ng/L Males: 4 - 35 ng/L Limit of Quantitatio n: 4 ng/L Significant High-Sensit ivity Troponin I Delta at 2 hours, either rising or falling: >10 ng/L. Once baseline and 2-hour High-Sensit ivity Troponin I results are available, the Provider ordering the tests will calculate the HS-Troponin I Delta, the difference between the two values. High-Tropon in I values greater than the 99th percentile with a rising or falling pattern (a change of >10 ng/L between the baseline and 2-hour samples) highly suggest acute cardiac injury, whereas values for females 4-14 ng/L and males 4-35 ng/L require further clinician assessment. Acute cardiac injury does not necessarily equate to acute myocardial infarction. Additional clinical criteria are necessary for the diagnosis of Specimens from individuals with elevated levels of fibrinogen may demonstrate falsely elevated values. This assay is susceptible to interferenc e from total protein >8.8 g/dL. Total protein values from 9.0 to 12.0 g/dL decrease Troponin values at 500 ng/L by up to -16.3%. Although designed to minimize the effects of HAMA, heterophili c antibodies, and RF, the assay results may be impacted in a falsely negative way by these proteins. A High-Sensit ivity Troponin I information resource can be reached in [facility] in the Tools menu, under the Education tab. Estimated Glomerular Filtration Rate (eGFR) calculated using the 2020 Chronic Kidney Disease-Epi demiology (CKD-EPI) Collaborati on creatinine equation; units of measure are mL/min/1.73 m2. Results are only valid for adults (>=18 years) whose serum creatinine is in a steady state. eGFR calculation s are not valid for patients with acute kidney injury and for patients on dialysis. Creatinine- based estimates of kidney function may also be inaccurate in patients with reduced creatinine generation due to decreased muscle mass (e.g., malnutritio n, severe hypoalbumin emia, sarcopenia, chronic neuromuscul ar disease, amputations , severe heart failure or liver disease) and in patients with increased creatinine generation due to increased muscle mass (e.g., muscle builders, anabolic steroids) or increased dietary intake. As drug clearance is proportiona l to total GFR and not GFR indexed to body surface area (BSA), in individuals with a BSA substantial ly different than 1.73 m2, drug dosing should be based on the reported eGFR value de-indexed from BSA by multiplying by the individual' s BSA and dividing by 1.73. CKD is diagnosed based on abnormaliti es of kidney structure or function, present for >3 months, with implication s for health and disease. CKD is classified and staged based on cause, eGFR and albuminuria (quantified as urine albumin to creatinine ratio). An eGFR >60 mL/min/1.73 m2 in the absence of increased urine albumin excretion or structural abnormaliti es does not represent CKD. eGFR CKD Interpretat ion (mL/min/1.7 3 m2) stage >=90 G1 Normal 60-89 G2 Mild decrease 45-59 G3A Mild to moderate decrease 30-44 G3B Moderate to severe decrease 15-29 G4 Severe decrease <15 G5 Kidney failure Ordering Provider: DAVIDE WATSON Report Released Date/Time: Oct 04, 2024 05:14 PM Reporting Lab: [facility] [address] [phone] Performing Lab: [facility] [address] [phone] [facility] PANEL 1 ANION GAP 3 IN SERUM OR PLASMA 11 meq/L 3 - 19 10/04 Specimen Type: PLASMA Comment: Reference Ranges Females: 4 - 14 ng/L Males: 4 - 35 ng/L Limit of Quantitatio n: 4 ng/L Significant High-Sensit ivity Troponin I Delta at 2 hours, either rising or falling: >10 ng/L. Once baseline and 2-hour High-Sensit ivity Troponin I results are available, the Provider ordering the tests will calculate the HS-Troponin I Delta, the difference between the two values. High-Tropon in I values greater than the 99th percentile with a rising or falling pattern (a change of >10 ng/L between the baseline and 2-hour samples) highly suggest acute cardiac injury, whereas values for females 4-14 ng/L and males 4-35 ng/L require further clinician assessment. Acute cardiac injury does not necessarily equate to acute myocardial infarction. Additional clinical criteria are necessary for the diagnosis of Specimens from individuals with elevated levels of fibrinogen may demonstrate falsely elevated values. This assay is susceptible to interferenc e from total protein >8.8 g/dL. Total protein values from 9.0 to 12.0 g/dL decrease Troponin values at 500 ng/L by up to -16.3%. Although designed to minimize the effects of HAMA, heterophili c antibodies, and RF, the assay results may be impacted in a falsely negative way by these proteins. A High-Sensit ivity Troponin I information resource can be reached in [facility] in the Tools menu, under the Education tab. Estimated Glomerular Filtration Rate (eGFR) calculated using the 2020 Chronic Kidney Disease-Epi demiology (CKD-EPI) Collaborati on creatinine equation; units of measure are mL/min/1.73 m2. Results are only valid for adults (>=18 years) whose serum creatinine is in a steady state. eGFR calculation s are not valid for patients with acute kidney injury and for patients on dialysis. Creatinine- based estimates of kidney function may also be inaccurate in patients with reduced creatinine generation due to decreased muscle mass (e.g., malnutritio n, severe hypoalbumin emia, sarcopenia, chronic neuromuscul ar disease, amputations , severe heart failure or liver disease) and in patients with increased creatinine generation due to increased muscle mass (e.g., muscle builders, anabolic steroids) or increased dietary intake. As drug clearance is proportiona l to total GFR and not GFR indexed to body surface area (BSA), in individuals with a BSA substantial ly different than 1.73 m2, drug dosing should be based on the reported eGFR value de-indexed from BSA by multiplying by the individual' s BSA and dividing by 1.73. CKD is diagnosed based on abnormaliti es of kidney structure or function, present for >3 months, with implication s for health and disease. CKD is classified and staged based on cause, eGFR and albuminuria (quantified as urine albumin to creatinine ratio). An eGFR >60 mL/min/1.73 m2 in the absence of increased urine albumin excretion or structural abnormaliti es does not represent CKD. eGFR CKD Interpretat ion (mL/min/1.7 3 m2) stage >=90 G1 Normal 60-89 G2 Mild decrease 45-59 G3A Mild to moderate decrease 30-44 G3B Moderate to severe decrease 15-29 G4 Severe decrease <15 G5 Kidney failure Ordering Provider: DAVIDE WATSON Report Released Date/Time: Oct 04, 2024 05:14 PM Reporting Lab: [facility] [address] [place] [phone] Performing Lab: [facility] [address] [phone] [facility] PANEL 1 GLOMERULAR FILTRATION RATE/1.73 SQ M.PREDICTED [VOLUME RATE/AREA] IN SERUM, PLASMA OR BLOOD BY CREATININE- BASED FORMULA (CKD-EPI 2020) >90 10/04 Specimen Type: PLASMA Comment: Reference Ranges Females: 4 - 14 ng/L Males: 4 - 35 ng/L Limit of Quantitatio n: 4 ng/L Significant High-Sensit ivity Troponin I Delta at 2 hours, either rising or falling: >10 ng/L. Once baseline and 2-hour High-Sensit ivity Troponin I results are available, the Provider ordering the tests will calculate the HS-Troponin I Delta, the difference between the two values. High-Tropon in I values greater than the 99th percentile with a rising or falling pattern (a change of >10 ng/L between the baseline and 2-hour samples) highly suggest acute cardiac injury, whereas values for females 4-14 ng/L and males 4-35 ng/L require further clinician assessment. Acute cardiac injury does not necessarily equate to acute myocardial infarction. Additional clinical criteria are necessary for the diagnosis of Specimens from individuals with elevated levels of fibrinogen may demonstrate falsely elevated values. This assay is susceptible to interferenc e from total protein >8.8 g/dL. Total protein values from 9.0 to 12.0 g/dL decrease Troponin values at 500 ng/L by up to -16.3%. Although designed to minimize the effects of HAMA, heterophili c antibodies, and RF, the assay results may be impacted in a falsely negative way by these proteins. A High-Sensit ivity Troponin I information resource can be reached in [facility] in the Tools menu, under the Education tab. Estimated Glomerular Filtration Rate (eGFR) calculated using the 2020 Chronic Kidney Disease-Epi demiology (CKD-EPI) Collaborati on creatinine equation; units of measure are mL/min/1.73 m2. Results are only valid for adults (>=18 years) whose serum creatinine is in a steady state. eGFR calculation s are not valid for patients with acute kidney injury and for patients on dialysis. Creatinine- based estimates of kidney function may also be inaccurate in patients with reduced creatinine generation due to decreased muscle mass (e.g., malnutritio n, severe hypoalbumin emia, sarcopenia, chronic neuromuscul ar disease, amputations , severe heart failure or liver disease) and in patients with increased creatinine generation due to increased muscle mass (e.g., muscle builders, anabolic steroids) or increased dietary intake. As drug clearance is proportiona l to total GFR and not GFR indexed to body surface area (BSA), in individuals with a BSA substantial ly different than 1.73 m2, drug dosing should be based on the reported eGFR value de-indexed from BSA by multiplying by the individual' s BSA and dividing by 1.73. CKD is diagnosed based on abnormaliti es of kidney structure or function, present for >3 months, with implication s for health and disease. CKD is classified and staged based on cause, eGFR and albuminuria (quantified as urine albumin to creatinine ratio). An eGFR >60 mL/min/1.73 m2 in the absence of increased urine albumin excretion or structural abnormaliti es does not represent CKD. eGFR CKD Interpretat ion (mL/min/1.7 3 m2) stage >=90 G1 Normal 60-89 G2 Mild decrease 45-59 G3A Mild to moderate decrease 30-44 G3B Moderate to severe decrease 15-29 G4 Severe decrease <15 G5 Kidney failure Ordering Provider: DAVIDE WATSON Report Released Date/Time: Oct 04, 2024 05:14 PM Reporting Lab: [facility] [place] [id number] [facility] [phone] Performing Lab: [facility] [address] [facility] [phone] [facility] PANEL 2 PROTEIN [MASS/VOLUM E] IN SERUM OR PLASMA 7.8 g/dL 6.4 - 8.3 10/04 Specimen Type: PLASMA Comment: Reference Ranges Females: 4 - 14 ng/L Males: 4 - 35 ng/L Limit of Quantitatio n: 4 ng/L Significant High-Sensit ivity Troponin I Delta at 2 hours, either rising or falling: >10 ng/L. Once baseline and 2-hour High-Sensit ivity Troponin I results are available, the Provider ordering the tests will calculate the HS-Troponin I Delta, the difference between the two values. High-Tropon in I values greater than the 99th percentile with a rising or falling pattern (a change of >10 ng/L between the baseline and 2-hour samples) highly suggest acute cardiac injury, whereas values for females 4-14 ng/L and males 4-35 ng/L require further clinician assessment. Acute cardiac injury does not necessarily equate to acute myocardial infarction. Additional clinical criteria are necessary for the diagnosis of Specimens from individuals with elevated levels of fibrinogen may demonstrate falsely elevated values. This assay is susceptible to interferenc e from total protein >8.8 g/dL. Total protein values from 9.0 to 12.0 g/dL decrease Troponin values at 500 ng/L by up to -16.3%. Although designed to minimize the effects of HAMA, heterophili c antibodies, and RF, the assay results may be impacted in a falsely negative way by these proteins. A High-Sensit ivity Troponin I information resource can be reached in [facility] in the Tools menu, under the Education tab. Estimated Glomerular Filtration Rate (eGFR) calculated using the 2020 Chronic Kidney Disease-Epi demiology (CKD-EPI) Collaborati on creatinine equation; units of measure are mL/min/1.73 m2. Results are only valid for adults (>=18 years) whose serum creatinine is in a steady state. eGFR calculation s are not valid for patients with acute kidney injury and for patients on dialysis. Creatinine- based estimates of kidney function may also be inaccurate in patients with reduced creatinine generation due to decreased muscle mass (e.g., malnutritio n, severe hypoalbumin emia, sarcopenia, chronic neuromuscul ar disease, amputations , severe heart failure or liver disease) and in patients with increased creatinine generation due to increased muscle mass (e.g., muscle builders, anabolic steroids) or increased dietary intake. As drug clearance is proportiona l to total GFR and not GFR indexed to body surface area (BSA), in individuals with a BSA substantial ly different than 1.73 m2, drug dosing should be based on the reported eGFR value de-indexed from BSA by multiplying by the individual' s BSA and dividing by 1.73. CKD is diagnosed based on abnormaliti es of kidney structure or function, present for >3 months, with implication s for health and disease. CKD is classified and staged based on cause, eGFR and albuminuria (quantified as urine albumin to creatinine ratio). An eGFR >60 mL/min/1.73 m2 in the absence of increased urine albumin excretion or structural abnormaliti es does not represent CKD. eGFR CKD Interpretat ion (mL/min/1.7 3 m2) stage >=90 G1 Normal 60-89 G2 Mild decrease 45-59 G3A Mild to moderate decrease 30-44 G3B Moderate to severe decrease 15-29 G4 Severe decrease <15 G5 Kidney failure Ordering Provider: DAVIDE WATSON Report Released Date/Time: Oct 04, 2024 05:14 PM Reporting Lab: [facility] [address] [phone] Performing Lab: [facility] [address] [phone] [facility] PANEL 2 ALBUMIN [MASS/VOLUM E] IN SERUM OR PLASMA 4.5 g/dL 3.5 - 5.2 10/04 Specimen Type: PLASMA Comment: Reference Ranges Females: 4 - 14 ng/L Males: 4 - 35 ng/L Limit of Quantitatio n: 4 ng/L Significant High-Sensit ivity Troponin I Delta at 2 hours, either rising or falling: >10 ng/L. Once baseline and 2-hour High-Sensit ivity Troponin I results are available, the Provider ordering the tests will calculate the HS-Troponin I Delta, the difference between the two values. High-Tropon in I values greater than the 99th percentile with a rising or falling pattern (a change of >10 ng/L between the baseline and 2-hour samples) highly suggest acute cardiac injury, whereas values for females 4-14 ng/L and males 4-35 ng/L require further clinician assessment. Acute cardiac injury does not necessarily equate to acute myocardial infarction. Additional clinical criteria are necessary for the diagnosis of Specimens from individuals with elevated levels of fibrinogen may demonstrate falsely elevated values. This assay is susceptible to interferenc e from total protein >8.8 g/dL. Total protein values from 9.0 to 12.0 g/dL decrease Troponin values at 500 ng/L by up to -16.3%. Although designed to minimize the effects of HAMA, heterophili c antibodies, and RF, the assay results may be impacted in a falsely negative way by these proteins. A High-Sensit ivity Troponin I information resource can be reached in [facility] in the Tools menu, under the Education tab. Estimated Glomerular Filtration Rate (eGFR) calculated using the 2020 Chronic Kidney Disease-Epi demiology (CKD-EPI) Collaborati on creatinine equation; units of measure are mL/min/1.73 m2. Results are only valid for adults (>=18 years) whose serum creatinine is in a steady state. eGFR calculation s are not valid for patients with acute kidney injury and for patients on dialysis. Creatinine- based estimates of kidney function may also be inaccurate in patients with reduced creatinine generation due to decreased muscle mass (e.g., malnutritio n, severe hypoalbumin emia, sarcopenia, chronic neuromuscul ar disease, amputations , severe heart failure or liver disease) and in patients with increased creatinine generation due to increased muscle mass (e.g., muscle builders, anabolic steroids) or increased dietary intake. As drug clearance is proportiona l to total GFR and not GFR indexed to body surface area (BSA), in individuals with a BSA substantial ly different than 1.73 m2, drug dosing should be based on the reported eGFR value de-indexed from BSA by multiplying by the individual' s BSA and dividing by 1.73. CKD is diagnosed based on abnormaliti es of kidney structure or function, present for >3 months, with implication s for health and disease. CKD is classified and staged based on cause, eGFR and albuminuria (quantified as urine albumin to creatinine ratio). An eGFR >60 mL/min/1.73 m2 in the absence of increased urine albumin excretion or structural abnormaliti es does not represent CKD. eGFR CKD Interpretat ion (mL/min/1.7 3 m2) stage >=90 G1 Normal 60-89 G2 Mild decrease 45-59 G3A Mild to moderate decrease 30-44 G3B Moderate to severe decrease 15-29 G4 Severe decrease <15 G5 Kidney failure Ordering Provider: DAVIDE WATSON Report Released Date/Time: Oct 04, 2024 05:14 PM Reporting Lab: [facility] [address] [phone] Performing Lab: [facility] [address] [phone] [facility] PANEL 2 BILIRUBIN.T OTAL [MASS/VOLUM E] IN SERUM OR PLASMA 0.4 mg/dL 0.2 - 1.2 10/04 Specimen Type: PLASMA Comment: Reference Ranges Females: 4 - 14 ng/L Males: 4 - 35 ng/L Limit of Quantitatio n: 4 ng/L Significant High-Sensit ivity Troponin I Delta at 2 hours, either rising or falling: >10 ng/L. Once baseline and 2-hour High-Sensit ivity Troponin I results are available, the Provider ordering the tests will calculate the HS-Troponin I Delta, the difference between the two values. High-Tropon in I values greater than the 99th percentile with a rising or falling pattern (a change of >10 ng/L between the baseline and 2-hour samples) highly suggest acute cardiac injury, whereas values for females 4-14 ng/L and males 4-35 ng/L require further clinician assessment. Acute cardiac injury does not necessarily equate to acute myocardial infarction. Additional clinical criteria are necessary for the diagnosis of Specimens from individuals with elevated levels of fibrinogen may demonstrate falsely elevated values. This assay is susceptible to interferenc e from total protein >8.8 g/dL. Total protein values from 9.0 to 12.0 g/dL decrease Troponin values at 500 ng/L by up to -16.3%. Although designed to minimize the effects of HAMA, heterophili c antibodies, and RF, the assay results may be impacted in a falsely negative way by these proteins. A High-Sensit ivity Troponin I information resource can be reached in [facility] in the Tools menu, under the Education tab. Estimated Glomerular Filtration Rate (eGFR) calculated using the 2020 Chronic Kidney Disease-Epi demiology (CKD-EPI) Collaborati on creatinine equation; units of measure are mL/min/1.73 m2. Results are only valid for adults (>=18 years) whose serum creatinine is in a steady state. eGFR calculation s are not valid for patients with acute kidney injury and for patients on dialysis. Creatinine- based estimates of kidney function may also be inaccurate in patients with reduced creatinine generation due to decreased muscle mass (e.g., malnutritio n, severe hypoalbumin emia, sarcopenia, chronic neuromuscul ar disease, amputations , severe heart failure or liver disease) and in patients with increased creatinine generation due to increased muscle mass (e.g., muscle builders, anabolic steroids) or increased dietary intake. As drug clearance is proportiona l to total GFR and not GFR indexed to body surface area (BSA), in individuals with a BSA substantial ly different than 1.73 m2, drug dosing should be based on the reported eGFR value de-indexed from BSA by multiplying by the individual' s BSA and dividing by 1.73. CKD is diagnosed based on abnormaliti es of kidney structure or function, present for >3 months, with implication s for health and disease. CKD is classified and staged based on cause, eGFR and albuminuria (quantified as urine albumin to creatinine ratio). An eGFR >60 mL/min/1.73 m2 in the absence of increased urine albumin excretion or structural abnormaliti es does not represent CKD. eGFR CKD Interpretat ion (mL/min/1.7 3 m2) stage >=90 G1 Normal 60-89 G2 Mild decrease 45-59 G3A Mild to moderate decrease 30-44 G3B Moderate to severe decrease 15-29 G4 Severe decrease <15 G5 Kidney failure Ordering Provider: DAVIDE WATSON Report Released Date/Time: Oct 04, 2024 05:14 PM Reporting Lab: [facility] [address] [facility] [phone] Performing Lab: [facility] [address] [facility] [phone] [facility] PANEL 2 ASPARTATE AMINOTRANSF ERASE [ENZYMATIC ACTIVITY/VO LUME] IN SERUM OR PLASMA 16 U/L 5 - 34 10/04 Specimen Type: PLASMA Comment: Reference Ranges Females: 4 - 14 ng/L Males: 4 - 35 ng/L Limit of Quantitatio n: 4 ng/L Significant High-Sensit ivity Troponin I Delta at 2 hours, either rising or falling: >10 ng/L. Once baseline and 2-hour High-Sensit ivity Troponin I results are available, the Provider ordering the tests will calculate the HS-Troponin I Delta, the difference between the two values. High-Tropon in I values greater than the 99th percentile with a rising or falling pattern (a change of >10 ng/L between the baseline and 2-hour samples) highly suggest acute cardiac injury, whereas values for females 4-14 ng/L and males 4-35 ng/L require further clinician assessment. Acute cardiac injury does not necessarily equate to acute myocardial infarction. Additional clinical criteria are necessary for the diagnosis of Specimens from individuals with elevated levels of fibrinogen may demonstrate falsely elevated values. This assay is susceptible to interferenc e from total protein >8.8 g/dL. Total protein values from 9.0 to 12.0 g/dL decrease Troponin values at 500 ng/L by up to -16.3%. Although designed to minimize the effects of HAMA, heterophili c antibodies, and RF, the assay results may be impacted in a falsely negative way by these proteins. A High-Sensit ivity Troponin I information resource can be reached in [facility] in the Tools menu, under the Education tab. Estimated Glomerular Filtration Rate (eGFR) calculated using the 2020 Chronic Kidney Disease-Epi demiology (CKD-EPI) Collaborati on creatinine equation; units of measure are mL/min/1.73 m2. Results are only valid for adults (>=18 years) whose serum creatinine is in a steady state. eGFR calculation s are not valid for patients with acute kidney injury and for patients on dialysis. Creatinine- based estimates of kidney function may also be inaccurate in patients with reduced creatinine generation due to decreased muscle mass (e.g., malnutritio n, severe hypoalbumin emia, sarcopenia, chronic neuromuscul ar disease, amputations , severe heart failure or liver disease) and in patients with increased creatinine generation due to increased muscle mass (e.g., muscle builders, anabolic steroids) or increased dietary intake. As drug clearance is proportiona l to total GFR and not GFR indexed to body surface area (BSA), in individuals with a BSA substantial ly different than 1.73 m2, drug dosing should be based on the reported eGFR value de-indexed from BSA by multiplying by the individual' s BSA and dividing by 1.73. CKD is diagnosed based on abnormaliti es of kidney structure or function, present for >3 months, with implication s for health and disease. CKD is classified and staged based on cause, eGFR and albuminuria (quantified as urine albumin to creatinine ratio). An eGFR >60 mL/min/1.73 m2 in the absence of increased urine albumin excretion or structural abnormaliti es does not represent CKD. eGFR CKD Interpretat ion (mL/min/1.7 3 m2) stage >=90 G1 Normal 60-89 G2 Mild decrease 45-59 G3A Mild to moderate decrease 30-44 G3B Moderate to severe decrease 15-29 G4 Severe decrease <15 G5 Kidney failure Ordering Provider: DAVIDE WATSON Report Released Date/Time: Oct 04, 2024 05:14 PM Reporting Lab: [facility] [address] [phone] Performing Lab: [facility] [address] [phone] [facility] PANEL 2 ALANINE AMINOTRANSF ERASE [ENZYMATIC ACTIVITY/VO LUME] IN SERUM OR PLASMA 17 U/L 0 - 55 10/04 Specimen Type: PLASMA Comment: Reference Ranges Females: 4 - 14 ng/L Males: 4 - 35 ng/L Limit of Quantitatio n: 4 ng/L Significant High-Sensit ivity Troponin I Delta at 2 hours, either rising or falling: >10 ng/L. Once baseline and 2-hour High-Sensit ivity Troponin I results are available, the Provider ordering the tests will calculate the HS-Troponin I Delta, the difference between the two values. High-Tropon in I values greater than the 99th percentile with a rising or falling pattern (a change of >10 ng/L between the baseline and 2-hour samples) highly suggest acute cardiac injury, whereas values for females 4-14 ng/L and males 4-35 ng/L require further clinician assessment. Acute cardiac injury does not necessarily equate to acute myocardial infarction. Additional clinical criteria are necessary for the diagnosis of Specimens from individuals with elevated levels of fibrinogen may demonstrate falsely elevated values. This assay is susceptible to interferenc e from total protein >8.8 g/dL. Total protein values from 9.0 to 12.0 g/dL decrease Troponin values at 500 ng/L by up to -16.3%. Although designed to minimize the effects of HAMA, heterophili c antibodies, and RF, the assay results may be impacted in a falsely negative way by these proteins. A High-Sensit ivity Troponin I information resource can be reached in [facility] in the Tools menu, under the Education tab. Estimated Glomerular Filtration Rate (eGFR) calculated using the 2020 Chronic Kidney Disease-Epi demiology (CKD-EPI) Collaborati on creatinine equation; units of measure are mL/min/1.73 m2. Results are only valid for adults (>=18 years) whose serum creatinine is in a steady state. eGFR calculation s are not valid for patients with acute kidney injury and for patients on dialysis. Creatinine- based estimates of kidney function may also be inaccurate in patients with reduced creatinine generation due to decreased muscle mass (e.g., malnutritio n, severe hypoalbumin emia, sarcopenia, chronic neuromuscul ar disease, amputations , severe heart failure or liver disease) and in patients with increased creatinine generation due to increased muscle mass (e.g., muscle builders, anabolic steroids) or increased dietary intake. As drug clearance is proportiona l to total GFR and not GFR indexed to body surface area (BSA), in individuals with a BSA substantial ly different than 1.73 m2, drug dosing should be based on the reported eGFR value de-indexed from BSA by multiplying by the individual' s BSA and dividing by 1.73. CKD is diagnosed based on abnormaliti es of kidney structure or function, present for >3 months, with implication s for health and disease. CKD is classified and staged based on cause, eGFR and albuminuria (quantified as urine albumin to creatinine ratio). An eGFR >60 mL/min/1.73 m2 in the absence of increased urine albumin excretion or structural abnormaliti es does not represent CKD. eGFR CKD Interpretat ion (mL/min/1.7 3 m2) stage >=90 G1 Normal 60-89 G2 Mild decrease 45-59 G3A Mild to moderate decrease 30-44 G3B Moderate to severe decrease 15-29 G4 Severe decrease <15 G5 Kidney failure Ordering Provider: DAVIDE WATSON Report Released Date/Time: Oct 04, 2024 05:14 PM Reporting Lab: [facility] [address] [address] Performing Lab: [facility] [address] [address] [facility] PANEL 2 ALKALINE PHOSPHATASE [ENZYMATIC ACTIVITY/VO LUME] IN SERUM OR PLASMA 71 U/L 40 - 150 10/04 Specimen Type: PLASMA Comment: Reference Ranges Females: 4 - 14 ng/L Males: 4 - 35 ng/L Limit of Quantitatio n: 4 ng/L Significant High-Sensit ivity Troponin I Delta at 2 hours, either rising or falling: >10 ng/L. Once baseline and 2-hour High-Sensit ivity Troponin I results are available, the Provider ordering the tests will calculate the HS-Troponin I Delta, the difference between the two values. High-Tropon in I values greater than the 99th percentile with a rising or falling pattern (a change of >10 ng/L between the baseline and 2-hour samples) highly suggest acute cardiac injury, whereas values for females 4-14 ng/L and males 4-35 ng/L require further clinician assessment. Acute cardiac injury does not necessarily equate to acute myocardial infarction. Additional clinical criteria are necessary for the diagnosis of Specimens from individuals with elevated levels of fibrinogen may demonstrate falsely elevated values. This assay is susceptible to interferenc e from total protein >8.8 g/dL. Total protein values from 9.0 to 12.0 g/dL decrease Troponin values at 500 ng/L by up to -16.3%. Although designed to minimize the effects of HAMA, heterophili c antibodies, and RF, the assay results may be impacted in a falsely negative way by these proteins. A High-Sensit ivity Troponin I information resource can be reached in [facility] in the Tools menu, under the Education tab. Estimated Glomerular Filtration Rate (eGFR) calculated using the 2020 Chronic Kidney Disease-Epi demiology (CKD-EPI) Collaborati on creatinine equation; units of measure are mL/min/1.73 m2. Results are only valid for adults (>=18 years) whose serum creatinine is in a steady state. eGFR calculation s are not valid for patients with acute kidney injury and for patients on dialysis. Creatinine- based estimates of kidney function may also be inaccurate in patients with reduced creatinine generation due to decreased muscle mass (e.g., malnutritio n, severe hypoalbumin emia, sarcopenia, chronic neuromuscul ar disease, amputations , severe heart failure or liver disease) and in patients with increased creatinine generation due to increased muscle mass (e.g., muscle builders, anabolic steroids) or increased dietary intake. As drug clearance is proportiona l to total GFR and not GFR indexed to body surface area (BSA), in individuals with a BSA substantial ly different than 1.73 m2, drug dosing should be based on the reported eGFR value de-indexed from BSA by multiplying by the individual' s BSA and dividing by 1.73. CKD is diagnosed based on abnormaliti es of kidney structure or function, present for >3 months, with implication s for health and disease. CKD is classified and staged based on cause, eGFR and albuminuria (quantified as urine albumin to creatinine ratio). An eGFR >60 mL/min/1.73 m2 in the absence of increased urine albumin excretion or structural abnormaliti es does not represent CKD. eGFR CKD Interpretat ion (mL/min/1.7 3 m2) stage >=90 G1 Normal 60-89 G2 Mild decrease 45-59 G3A Mild to moderate decrease 30-44 G3B Moderate to severe decrease 15-29 G4 Severe decrease <15 G5 Kidney failure Ordering Provider: DAVIDE WATSON Report Released Date/Time: Oct 04, 2024 05:14 PM Reporting Lab: [facility] [address] [address] Performing Lab: [facility] [address] [phone] [facility] PANEL 2 BILIRUBIN.D IRECT [MASS/VOLUM E] IN SERUM OR PLASMA 0.2 mg/dL 0.0 - 0.5 10/04 Specimen Type: PLASMA Comment: Reference Ranges Females: 4 - 14 ng/L Males: 4 - 35 ng/L Limit of Quantitatio n: 4 ng/L Significant High-Sensit ivity Troponin I Delta at 2 hours, either rising or falling: >10 ng/L. Once baseline and 2-hour High-Sensit ivity Troponin I results are available, the Provider ordering the tests will calculate the HS-Troponin I Delta, the difference between the two values. High-Tropon in I values greater than the 99th percentile with a rising or falling pattern (a change of >10 ng/L between the baseline and 2-hour samples) highly suggest acute cardiac injury, whereas values for females 4-14 ng/L and males 4-35 ng/L require further clinician assessment. Acute cardiac injury does not necessarily equate to acute myocardial infarction. Additional clinical criteria are necessary for the diagnosis of Specimens from individuals with elevated levels of fibrinogen may demonstrate falsely elevated values. This assay is susceptible to interferenc e from total protein >8.8 g/dL. Total protein values from 9.0 to 12.0 g/dL decrease Troponin values at 500 ng/L by up to -16.3%. Although designed to minimize the effects of HAMA, heterophili c antibodies, and RF, the assay results may be impacted in a falsely negative way by these proteins. A High-Sensit ivity Troponin I information resource can be reached in [facility] in the Tools menu, under the Education tab. Estimated Glomerular Filtration Rate (eGFR) calculated using the 2020 Chronic Kidney Disease-Epi demiology (CKD-EPI) Collaborati on creatinine equation; units of measure are mL/min/1.73 m2. Results are only valid for adults (>=18 years) whose serum creatinine is in a steady state. eGFR calculation s are not valid for patients with acute kidney injury and for patients on dialysis. Creatinine- based estimates of kidney function may also be inaccurate in patients with reduced creatinine generation due to decreased muscle mass (e.g., malnutritio n, severe hypoalbumin emia, sarcopenia, chronic neuromuscul ar disease, amputations , severe heart failure or liver disease) and in patients with increased creatinine generation due to increased muscle mass (e.g., muscle builders, anabolic steroids) or increased dietary intake. As drug clearance is proportiona l to total GFR and not GFR indexed to body surface area (BSA), in individuals with a BSA substantial ly different than 1.73 m2, drug dosing should be based on the reported eGFR value de-indexed from BSA by multiplying by the individual' s BSA and dividing by 1.73. CKD is diagnosed based on abnormaliti es of kidney structure or function, present for >3 months, with implication s for health and disease. CKD is classified and staged based on cause, eGFR and albuminuria (quantified as urine albumin to creatinine ratio). An eGFR >60 mL/min/1.73 m2 in the absence of increased urine albumin excretion or structural abnormaliti es does not represent CKD. eGFR CKD Interpretat ion (mL/min/1.7 3 m2) stage >=90 G1 Normal 60-89 G2 Mild decrease 45-59 G3A Mild to moderate decrease 30-44 G3B Moderate to severe decrease 15-29 G4 Severe decrease <15 G5 Kidney failure Ordering Provider: DAVIDE WATSON Report Released Date/Time: Oct 04, 2024 05:14 PM Reporting Lab: [facility] [address] [address] Performing Lab: [facility] [address] [address] [facility] METANEPHR KATERIN (PLASMA) NORMETANEPH RINE [MASS/VOLUM E] IN SERUM OR PLASMA 49.8 pg/mL 0.0 - 244.0 08/27 Specimen Type: PLASMA No comment entered. Ordering Provider: METZ Report Released Date/Time: Aug 14, 2024 03:48 PM Reporting Lab: [place] [id number] Performing Lab: [address] [phone] METANEPHR KATERIN (PLASMA) METANEPHRIN E FREE [MASS/VOLUM E] IN SERUM OR PLASMA <25.0p g/mL 0.0 - 88.0 08/27 Specimen Type: PLASMA No comment entered. Ordering Provider: METZ Report Released Date/Time: Aug 14, 2024 03:48 PM Reporting Lab: [place] [phone] Performing Lab: [address] [phone] [place] [address] Vital Signs Combined list of inpatient and outpatient Vital Signs from Department of Defense and Veterans Affairs, ranging from 12 months to all on record, depending upon the facility. Vital Sign Value Date Comments Source SYSTOLIC BLOOD PRESSURE 120 11/10/2024 08:51:43 [facility] DIASTOLIC BLOOD PRESSURE 71 11/10/2024 08:51:43 [facility] PULSE OXIMETRY 99 % 11/10/2024 08:51:43 [facility] 256.5 11[facility]10[facility] BMI 35 kg/m2 11[facility]10/2024 08:51:[facility] PAIN 4 11/10/2024 08:51:[facility] PULSE 71 11/10/2024 08:51:43 [place] [facility] RESPIRATION 16 11/10/2024 08:51:43 ARAVIND FUENTES [facility] SYSTOLIC BLOOD PRESSURE 134 10/04/2024 16:20:00 [facility] DIASTOLIC BLOOD PRESSURE 85 10/04/2024 16:20:00 [place] PAIN 8 10/04/2024 16:20:00 [place] TEMPERATURE 97.9 10/04/2024 16:20:00 [facility] [facility] PULSE 105 10/04/2024 16:20:00 [place] [facility] RESPIRATION 18 10/04/2024 16:20:00 [facility] [facility] SYSTOLIC BLOOD PRESSURE 124 09/14/2024 10:32:37 [place] [facility] DIASTOLIC BLOOD PRESSURE 85 09/14/2024 10:32:37 [place] [facility] PULSE OXIMETRY 97 09/14/2024 10:32:37 [place] [facility] WEIGHT 261 09/14/2024 10:32:37 [place] [facility] BMI 35 kg/m2 09/14/2024 10:32:37 [place] [facility] PAIN 0 09/14/2024 10:32:37 [place] [facility] TEMPERATURE 97.9 09/14/2024 10:32:37 [facility] N[facility] PULSE 81 09/14/2024 10:32:37 [place] [facility] RESPIRATION 18 09/14/2024 10:32:37 [facility] N[facility] SYSTOLIC BLOOD PRESSURE 113 08/27/2024 10:30:28 [place] [facility] DIASTOLIC BLOOD PRESSURE 75 08/27/2024 10:30:28 [place] [facility] PULSE OXIMETRY 96 08/27/2024 10:30:28 [place] [facility] WEIGHT 267.8 08/27/2024 10:30:28 [place] [facility] BMI 36 kg/m2 08/27/2024 10:30:28 [place] [facility] PAIN 4 08/27/2024 10:30:28 [place] [facility] TEMPERATURE 98.7 08/27/2024 10:30:28 A[facility] NGTON [facility] PULSE 82 08/27/2024 10:30:28 [place] [facility] SYSTOLIC BLOOD PRESSURE 140 01/01/2024 09:09:[facility] 88 01/01/2024 09:09:26 [facility] PULSE OXIMETRY 100 01/01/2024 09:09:26 L KARINA [facility] WEIGHT 277 01/01/2024 09:09:26 [facility] [facility] BMI 38 kg/m2 01/01/2024 09:09:26 [place] [facility] TEMPERATURE 98.2 01/01/2024 09:09:26 ARAVIND FUENTES [facility] PULSE 78 01/01/2024 09:09:26 [facility] [facility] RESPIRATION 20 01/01/2024 09:09:26 ARAVIND FUENTES [facility] Encounters Combined list of: 1) Encounters from Department of [facility] facilities going backup to the last 18 months, not all [place] inpatient encounters are included; 2) Encounters from the Department of [facility] facilities going backup to 280 months. Location Location Details Encounter Type Encounter Number Reason For Visit Attending Provider ADM Date DC Date Status Disposition Source [facility] Outpatient Encounter [id number] 06/26 [place] Outpatient Encounter [id number] 07/01 [place] [facility] QNHP OL DIG ASSMT&MGMT 11-20 [id number] Diagnos is: ICD-10- CM M54.16 Radicul opathy, lumbar region [place] LORENZO 07/04 [place] Outpatient Encounter [id number] 07/06 [place] [facility] Outpatient Encounter [id number] 07/07 [place] [facility] Outpatient Encounter [id number] 07/10 [place] [facility] EEG AWAKE AND DROWSY [id number] Diagnos is: ICD-10- CM G40.89 Other seizure s SA IVA LLY 07/11 [place] OFFICE O/P EST MOD 30 MIN [id number] Diagnos is: ICD-10- CM J30.2 Other seasona l allergi c rhiniti s ERROL,Get MY B 07/11 [place] [facility] Outpatient Encounter [id number] 07/11 [place] [facility] OFFICE O/P EST LOW 20 MIN [id number] Diagnos is: ICD-10- CM 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, upper and lower eyelids [place] LLIP K 07/11 [place] [facility] Outpatient Encounter [id number] 07/14 [place] [facility] HC PRO PHONE CALL 5-10 MIN [id number] Diagnos is: ICD-10- CM Z71.89 Other specifi ed prenatal genetic counselor JEAN CARLOS Benson 07/21 [place] [facility] Outpatient Encounter [id number] 07/23 [place] Outpatient Encounter [id number] 08/26 [place] [facility] FEE [id number] Diagnos is: ICD-10- CM Z13.89 Encount er for screeni ng for other disorde r OUSMANE VALERIO INE T 08/28 [place] [facility] OFF/OP CONSLTJ NEW/EST SF 20 [id number] Diagnos is: ICD-10- CM D48.5 Neoplas m of uncerta in behavio r of skin TAMAYO,CHR ISTOPHER C 08/28 [place] [facility] Outpatient Encounter [id number] 08/29 [place] [facility] Outpatient Encounter [id number] 09/01 [place] Outpatient Encounter [id number] 09/01 [place] [facility] OFFICE O/P EST MOD 30 MIN [id number] Diagnos is: ICD-10- CM 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, lumbar region GIULIA KILPATRICK MMY R 09/05 [place] INJECT SACROILIAC JOINT [id number] Diagnos is: ICD-10- CM M46.96 Unspeci fied inflamm atory spondyl opathy, lumbar region SHITAL DICKINSON 09/05 [place] Outpatient Encounter [id number] 09/05 [place] [facility] Outpatient Encounter [id number] DEENA HAYNES RLY M 09/05 [place] [facility] Outpatient Encounter [id number] SHITAL DICKINSON 09/05 [place] [facility] Outpatient Encounter [id number] 09/05 [place] Outpatient Encounter [id number] 09/05 [place] [facility] Outpatient Encounter [id number] 09/08 [place] Outpatient Encounter [id number] 09/15 [place] [facility] Outpatient Encounter [id number] 09/24 [place] Outpatient Encounter [id number] 09/26 [place] Encounter [id number] 09/26 [place] HC PRO PHONE CALL 5-10 MIN [id number] Diagnos is: ICD-10- CM Z71.89 Other specifi ed prenatal genetic counselor JEAN CARLOS Benson 09/26 [place] [facility] Outpatient Encounter [id number] 09/26 [place] OFF[facility] O/P EST MOD 30 MIN [id number] Diagnos is: ICD-10- CM 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 JANAE TAMAYO 10/06 [place] Outpatient Encounter [id number] 10/08 [place] [facility] OFFICE O/P EST MOD 30 MIN [id number] Diagnos is: ICD-10- CM R32 Unspeci fied urinary inconti jeffNURY Frye CHARLEYNY L 10/15 [place] [facility] Outpatient Encounter [id number] 10/16 [place] [facility] HC PRO PHONE CALL 5-10 MIN [id number] Diagnos is: ICD-10- CM R79.9 Abnorma l finding of blood astrochemist ry, unspeci fied JEAN CARLOS RAMIREZ 10/17 [place] [facility] Outpatient Encounter [id number] 10/20 [place] [facility] Outpatient Encounter [id number] 10/21 [place] [facility] Outpatient Encounter [id number] 10/27 [place] [facility] PSYTX W PT 30 MINUTES [id number] Diagnos is: ICD-10- CM F43.10 Post-tr aumatic stress disorde r, unspeci fied BURT,DAVID ANY M 10/28 [place] [facility] Outpatient Encounter [id number] 11/11 [place] [facility] EMERGENCY DEPT VISIT MOD MDM [id number] Diagnos is: ICD-10- CM R07.9 Chest pain, unspeci fied GIVENMayra,GITA III [facility] [facility] SF 10 MIN [id number] Diagnos is: ICD-10- CM Z13.6 Encount er for screeni ng for cardiov ascular disorde rs QUINTINAALIYAH IG A 11/23 [place] Inpatient Encounter [id number] Admit Reason: Chest pressur e HSARATH MARIA 11/24 Discharge from inpatient treatment to the [facility] [place] Inpatient Encounter [id number] 11/24 [place] Inpatient Encounter [id number] 11/24 [place] 1ST HOSP IP/OBS MODERATE 55 [id number] [employer] 11/24 [place] In[facility] Encounter [id number] 11/24 [place] [facility] IP/OBS CNSLTJ NEW/EST MOD 60 [id number] AALIYAH RIBEIRO IG A 11/24 [place] [place] [facility] Inpatient Encounter [id number] Diagnos is: ICD-10- CM R07.9 Chest pain, unspeci fied JANUSZ MACIEL 11/24 [place] [place] [facility] Inpatient Encounter [id number] 11/24 [place] [place] [facility] MTMS BY PHARM ADDL 15 MIN [id number] Diagnos is: ICD-10- CM Z51.81 Encount er for therape utic drug level monitor Echo Hall T 11/24 [place] Inpatient Encounter [id number] 11/24 [place] Inpatient Encounter [id number] 11/24 [place] Inpatient Encounter [id number] 11/24 [place] Inpatient Encounter [id number] 11/24 [place] [facility] CASE MANAGEMENT [id number] Diagnos is: ICD-10- CM Z78.9 Other specifi ed health status MACK REYNOLDS 11/24 [place] [place] [facility] Inpatient Encounter [id number] 11/24 [place] [facility] ELECTROCAR DIOGRAM COMPLETE [id number] Diagnos is: ICD-10- CM Z13.6 Encount er for screeni ng for cardiov ascular disorde rs SANDRINE CHAUDHARY 11/24 [place] [place] [facility] Inpatient Encounter [id number] 11/24 [place] [facility] Inpatient Encounter [id number] 11/24 [place] Inpatient Encounter [id number] 11/24 [place] Inpatient Encounter [id number] 11/25 [place] [facility] CASE MANAGEMENT [id number] Diagnos is: ICD-10- CM Z78.9 Other specifi ed health status Mayra MONTEMAYOR A 11/25 [place] [facility] IP/OBS SF/LOW 25 [id number] AALIYAH RIBEIRO A 11/25 [place] Inpatient Encounter [id number] Diagnos is: ICD-10- CM I25.84 Coronar y atheros clerosi s due to calcifi ed coronar y lesion JANUSZ MACIEL 11/25 [place] [facility]/CURREN T MED MERGE [id number] Diagnos is: ICD-10- CM Z51.81 Encount er for therape utic drug level monitor MELISSA Locke N 11/25 [place] [facility] Inpatient Encounter [id number] 11/25 [place] [place] [facility] Inpatient Encounter [id number] 11/25 [place] [facility] Inpatient Encounter [id number] 11/25 [place] [facility] Inpatient Encounter [id number] 11/25 [place] [facility]OS[facility] IP/OBS DSCHRG MGMT 30/< [id number] [employer] 11/25 [place] [facility] OFFICE O/P NEW SF 15 MIN [id number] Diagnos is: ICD-10- CM N39.46 Mixed inconti Susan Donaldson 11/25 [place] [facility] Outpatient Encounter [id number] 11/26 [place] [facility] Outpatient Encounter [id number] 11/26 [place] [facility] HC PRO PHONE CALL 5-10 MIN [id number] Diagnos is: ICD-10- CM R07.9 Chest pain, unspeci fied JEAN CARLOS RAMIREZ S 11/26 [place] [facility] 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 15 MIN [id number] Diagnos is: ICD-10- CM Z51.81 Encount er for therape utic drug level monitor RADHA Carroll 11/28 [place] [facility] PSYCH DIAGNOSTIC EVALUATION [id number] Diagnos is: ICD-10- CM F43.10 Post-tr aumatic stress disorde r, unspeci fiYessenia Rice 12/15 [place] [facility] Outpatient Encounter [id number] 12/16 [place] [facility] Outpatient Encounter [id number] 12/16 [place] [facility] HC PRO PHONE CALL 11-20 MIN 97376-0.59 [id number] Diagnos is: ICD-10- CM F43.9 Reactio n to severe stress, unspeci fied Jordan RAYY Alex 12/19 [place] [facility] Outpatient Encounter 36701-7.59 [id number] ME LILLIAN KIMBLE 12/22 [place] [facility] EMERGENCY DEPT VISIT LOW MDM 00586-1.59 [id number] 57 Diagnos is: ICD-10- CM R21 Rash and other nonspec ific skin eruptio n CESAR ASHFORD 12/22 [place] Outpatient Encounter 08948-5.59 [id number] 12/24 [place] [facility] OFFICE O/P EST MOD 30 MIN 05193-4.59 [id number] 71 Diagnos is: ICD-10- CM I25.84 Coronar y atheros clerosi s due to calcifi ed coronar y lesion DILAN ARIZMENDI 12/31 [place] [facility] Outpatient Encounter 33458-4.59 [id number] 35 01/06 [place] Outpatient Encounter 18598-4.59 [id number] 02 01/08 [place] [facility] Outpatient Encounter 56339-0.59 [id number] 76 01/12 [place] [facility] PSYCH DIAGNOSTIC EVALUATION 96580-7.59 [id number] Diagnos is: ICD-10- CM F43.10 Post-tr aumatic stress disorde r, unspeci KIMO BlakelyEY N 01/14 [place] [facility] Outpatient Encounter 85935-2.59 [id number] 01/15 [place] [facility] Outpatient Encounter 69936-0.59 [id number] Diagnos is: ICD-10- CM M54.16 Radicul opathy, lumbar region PHILLIP ESCOBEDO 01/20 [place] [facility] PSYTX W PT 30 MINUTES 68850-6.59 [id number] Diagnos is: ICD-10- CM F43.10 Post-tr aumatic stress disorde r, unspeci KIMO Blakely N 01/22 [place] [facility] Outpatient Encounter 56074-9.59 [id number] Diagnos is: ICD-10- CM N39.46 Mixed inconti Susan Donaldson 01/27 [place] [facility] Outpatient Encounter 84724-5.59 [id number] 66 01/29 [place] [facility] Outpatient Encounter 13383-0.59 [id number] 20 02/11 [place] Outpatient Encounter 57759-6.59 [id number] 02/12 [place] [facility] Outpatient Encounter 42501-4.59 [id number] 02/12 [place] [facility] Outpatient Encounter 47471-3.59 [id number] 02/18 [place] [facility] Outpatient Encounter 81312-0.59 [id number] 91 02/19 [place] Outpatient Encounter 75477-0.59 [id number] 02/20 [place] [facility] Outpatient Encounter 74925-4.59 [id number] 21 02/23 [place] [facility] Outpatient Encounter 71197-7.59 [id number] 00 02/23 [place] [facility] PSYTX W PT 45 MINUTES 10021-3.59 [id number] Diagnos is: ICD-10- CM F43.12 Post-tr aumatic stress disorde r, chronic GAYLE OBANDO L 02/25 [place] [facility] Outpatient Encounter 95269-2.59 [id number] Diagnos is: ICD-10- CM F43.12 Post-tr aumatic stress disorde r, chronic MUNOZCARMEN 03/03 [place] [facility] Outpatient Encounter 21186-6.59 [id number] 61 03/04 [place] [facility] PSYTX W PT 60 MINUTES 80990-4.59 [id number] Diagnos is: ICD-10- CM F43.12 Post-tr aumatic stress disorde r, chronic GAYLE OBANDO L 03/04 [place] [facility] 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 15 MIN 63960-9.59 [id number] Diagnos is: ICD-10- CM Z51.81 Encount er for therape utic drug level monitor ing GABRIEL,GI NA M 03/05 [place] [facility] Outpatient Encounter 54940-0.59 [id number] 03/09 [place] [facility] Outpatient Encounter 96968-0.59 [id number] 03/09 [place] [facility] PSYTX W PT 60 MINUTES 66652-9.59 [id number] Diagnos is: ICD-10- CM F43.12 Post-tr aumatic stress disorde r, chronic GAYLE OBANDO 03/11 [place] [facility] Outpatient Encounter 55525-2.59 [id number] 03/12 [place] [facility] OFFICE O/P NEW HI 60 MIN 77676-7.59 [id number] Diagnos is: ICD-10- CM F43.12 Post-tr aumatic stress disorde r, chronic CARMEN MUNOZ 03/13 [place] [facility] Outpatient Encounter 75926-5.59 [id number] 97 03/13 [place] [facility] Outpatient Encounter [id number] [id number] 03/18 [place] [facility] Outpatient Encounter 75800-5.59 [id number] 03/19 [place] [facility] Outpatient Encounter 69384-1.59 [id number] 03/19 [place] [facility] Outpatient Encounter 43957-4.59 [id number] 03/20 [place] [facility] Outpatient Encounter 50448-9.59 [id number] Diagnos is: ICD-10- CM N39.3 Stress inconti nence (female ) (male) Susan REN 03/20 [place] [facility] PSYTX W PT 60 MINUTES 20015-2.59 [id number] Diagnos is: ICD-10- CM F43.12 Post-tr aumatic stress disorde r, chronic GAYLE OBANDO L 03/25 [place] [facility] HC PRO PHONE CALL 11-20 MIN 94708-1.59 [id number] Diagnos is: ICD-10- CM Z71.89 Other specifi ed prenatal genetic counselor ing CARLY MERLOS E 03/26 [place] [facility] OFFICE O/P EST MOD 30 MIN 38411-1.59 [id number] 99 Diagnos is: ICD-10- CM G89.29 Other chronic pain NIKA DURBIN AR 03/27 [place] [facility] Outpatient Encounter 83133-0.59 [id number] 03/27 [place] [facility] INJECT SACROILIAC JOINT 51091-2.59 [id number] 69 Diagnos is: ICD-10- CM 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, lumbosa cr region NIKA DURBIN AR 03/27 [place] [facility] Outpatient Encounter 66890-2.59 [id number] ALESIA HANSEN 03/27 [place] [facility] Outpatient Encounter 88047-2.59 [id number] 03/27 [place] [facility] Outpatient Encounter 22146-2.59 [id number] 10 03/27 [place] [facility] Outpatient Encounter 93557-5.59 [id number] 03/27 [place] [facility] Outpatient Encounter 14051-3.59 [id number] 31 03/30 [place] [facility] Outpatient Encounter 50209-8.59 [id number] 56 04/01 [place] [facility] PSYTX W PT 60 MINUTES 09485-1.59 [id number] Diagnos is: ICD-10- CM F43.12 Post-tr aumatic stress disorde r, chronic GAYLE OBANDO 04/01 [place] [facility] Outpatient Encounter 21083-7.59 [id number] 04/06 [place] [facility] Outpatient Encounter 69977-3.59 [id number] 04/08 [place] [facility] OFFICE O/P EST HI 40 MIN 72668-5.59 [id number] Diagnos is: ICD-10- CM F43.12 Post-tr aumatic stress disorde r, chronic CARMEN MUNOZ 04/10 [place] [facility] PSYTX W PT 60 MINUTES 66076-0.59 [id number] Diagnos is: ICD-10- CM F43.12 Post-tr aumatic stress disorde r, chronic GAYLE OBANDO 04/15 [place] [facility] Outpatient Encounter 09738-8.59 [id number] 04/17 [place] [facility] Outpatient Encounter 59593-7.59 [id number] Yessenia BALTAZAR 04/21 [place] [facility] Outpatient Encounter 95563-0.59 [id number] Diagnos is: ICD-10- CM J01.80 Other acute sinusit is RANGEL GARCIA 04/21 [place] [facility] Outpatient Encounter 65861-5.59 [id number] 04/22 [place] [facility] Outpatient Encounter 75458-9.59 [id number] 05/13 [place] [facility] Outpatient Encounter 30980-1.59 [id number] 05/13 [place] [facility] Outpatient Encounter 63120-0.59 [id number] 05/18 [place] [facility] Outpatient Encounter 58064-0.59 [id number] 05/18 [place] [facility] Outpatient Encounter 01787-9.59 [id number] 05/20 [place] [facility] Outpatient Encounter 68392-8.59 [id number] 05/27 [place] [facility] Outpatient Encounter 27042-0.59 [id number] CARMEN MUNOZ 05/29 [place] [facility] SYNCH AUDIO-ONLY EST MOD 30 90337-7.59 [id number] Diagnos is: ICD-10- CM F43.12 Post-tr aumatic stress disorde r, chronic CARMEN MUNOZ 05/29 [place] [facility] Outpatient Encounter 39655-4.59 [id number] 06/02 [place] [facility] Outpatient Encounter 63894-5.59 [id number] 06/08 [place] [facility] SYNCH AUDIO-ONLY EST SF 10 86801-2.59 [id number] 97 Diagnos is: ICD-10- CM C74.92 Maligna nt 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 Susan REN M 06/08 [place] [facility] Outpatient Encounter 10353-3.59 [id number] 77 06/12 [place] [facility] PH1 ASSMT&MGMT NQHP 5-10 85158-1.59 [id number] Diagnos is: ICD-10- CM Z71.89 Other specifi ed prenatal genetic counselor JEAN CARLOS Benson S 06/12 [place] [facility] PSYTX W PT 60 MINUTES 55929-9.59 [id number] Diagnos is: ICD-10- CM F43.12 Post-tr aumatic stress disorde r, chronic GAYLE OBANDO 06/17 [place] [facility] Outpatient Encounter 20902-3.59 [id number] 06/17 [place] [facility] Outpatient Encounter 52292-0.59 [id number] 06/18 [place] [address] ASSMT&MGMT NQHP 5-10 11127-2.59 [id number] Diagnos is: ICD-10- CM Z71.89 Other specifi ed prenatal genetic counselor JEAN CARLOS Benson S 06/18 [place] [facility] PSYTX W PT 45 MINUTES 26747-3.59 [id number] Diagnos is: ICD-10- CM F43.12 Post-tr aumatic stress disorde r, chronic GAYLE OBANDO 06/24 [place] [facility] SYNCH AUDIO-VIDE O EST MOD 30 46805-2.59 [id number] Diagnos is: ICD-10- CM F43.12 Post-tr aumatic stress disorde r, chronic CARMEN MUNOZ 06/29 [place] [facility] Outpatient Encounter [id number] [id number] 07/01 [place] [facility] Outpatient Encounter 84226-5.59 [id number] 07/01 [place] Outpatient Encounter 45801-8.59 [id number] 07/08 [place] [facility] PSYTX W PT 60 MINUTES 91860-4.59 [id number] Diagnos is: ICD-10- CM F43.12 Post-tr aumatic stress disorde r, chronic GAYLE OBANDO 07/08 [place] [facility] SYNCH AUDIO-[place]IDE [place] HI 40 05384-6.59 [id number] Diagnos is: ICD-10- CM F43.12 Post-tr aumatic stress disorde r, chronic CARMEN MUNOZ 07/16 [place] [facility] SYNCH AUDIO-VIDE O EST MOD 30 48614-8.59 [id number] Diagnos is: ICD-10- CM F43.12 Post-tr aumatic stress disorde r, chronic CARMEN MUNOZ 07/27 [place] [facility] Outpatient Encounter 77720-2.59 [id number] 08/03 [place] [facility] Outpatient Encounter 28942-6.59 [id number] 08/03 [place] [facility] Outpatient Encounter 10840-0.59 [id number] 08/05 [place] [facility] 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 15 MIN 90223-4.59 [id number] Diagnos is: ICD-10- CM Z79.899 Other group home (curren t) drug therapy TELMA PICKARD LEONIDAS B 08/05 [place] [facility] PSYTX W PT 60 MINUTES 47491-8.59 [id number] Diagnos is: ICD-10- CM F43.12 Post-tr aumatic stress disorde r, chronic GAYLE OBANDO L 08/12 [place] [facility] SYNCH AUDIO-ONLY EST SF 10 72731-1.59 [id number] Diagnos is: ICD-10- CM R32 Unspeci fied urinary inconti Susan Donaldson 08/13 [place] [facility] O[facility]P NEW MOD 45 MIN 92037-0.59 [id number] Diagnos is: ICD-10- CM G89.29 Other chronic pain ELISEO DIAMOND 08/14 [place] [facility] PSYTX W PT 60 MINUTES 73445-6.59 [id number] Diagnos is: ICD-10- CM F43.12 Post-tr aumatic stress disorde r, chronic GAYLE OBANDO L 08/19 [place] [facility] Outpatient Encounter 94687-1.59 [id number] 11 08/20 [place] [facility] Outpatient Encounter 20033-8.59 [id number] 45 08/27 [place] [facility] Outpatient Encounter 73869-9.59 [id number] 08/27 [place] [facility] IMG RTA DETCJ/MNTR DS STAFF 49867-6.59 [id number] Diagnos is: ICD-10- CM Z13.5 Encount er for screeni ng for eye and ear disorde ABELINO Yousif 08/27 [place] [facility] OFFICE O/P EST MOD 30 MIN 38112-8.59 [id number] Diagnos is: ICD-10- CM E11.40 Type 2 diabete s mellitu s with diabeti c neuropa thy, unsp VAN,NURY TTANY L 08/27 [place] [facility] Outpatient Encounter 95411-3.61 [id number] Diagnos is: ICD-10- CM Z13.5 Encount er for screeni ng for eye and ear disorde rs FRANK HERNÁNDEZ 08/27 [facility] Outpatient Encounter 27213-6.59 [id number] 05 08/27 [place] Outpatient Encounter 95782-8.59 [id number] 08/27 [place] [facility] Outpatient Encounter 79032-5.59 [id number] 08/27 [place] [facility] PH1 ASSMT&MGMT NQHP 5-10 56544-4.59 [id number] Diagnos is: ICD-10- CM R79.9 Abnorma l finding of blood astrochemist ry, unspeci JEAN CARLOS Espinoza S 08/27 [place] [facility] Outpatient Encounter 31696-4.59 [id number] 09/02 [place] [facility] Outpatient Encounter 71747-5.59 [id number] 09/03 [place] [facility] ACUP 1/> W/O ESTIM EA ADD 15 71044-5.59 [id number] Diagnos is: ICD-10- CM G89.29 Other chronic pain ELISEO DIAMOND 09/07 [place] [facility] Outpatient Encounter 41237-8.59 [id number] 09/08 [place] [facility] Outpatient Encounter 47176-2.59 [id number] 09/08 [place] [facility] PSYTX W PT 45 MINUTES 71676-4.59 [id number] Diagnos is: ICD-10- CM F43.12 Post-tr aumatic stress disorde r, chronic GAYLE OBANDO L 09/09 [place] [facility] PH1 ASSMT&MGMT NQHP 5-10 48981-8.59 [id number] Diagnos is: ICD-10- CM Z71.89 Other specifi ed prenatal genetic counselor JEAN CARLOS Benson 09/09 [place] [facility] PT EDUCATION NOC INDIVID 42065-4.59 [id number] Diagnos is: ICD-10- CM G89.29 Other chronic pain ELISEO DIAMOND 09/14 [place] [facility] Outpatient Encounter 79059-2.59 [id number] 08 09/14 [place] OFFICE O/P EST MOD 30 MIN 33076-0.59 [id number] Diagnos is: ICD-10- CM J30.2 Other seasona l allergi c rhiniti s ERROL,A MY B 09/14 [place] [facility] SYNCH AUDIO-VIDE [place] HI 40 31461-8.59 [id number] Diagnos is: ICD-10- CM F43.12 Post-tr aumatic stress disorde r, chronic CARMEN MUNOZ 09/17 [place] [facility] EDU&TRN PT SELF-MGMT NQHP 1 89266-6.59 [id number] Diagnos is: ICD-10- CM G89.29 Other chronic pain ELISEO DIAMOND 09/21 [place] [facility] Outpatient Encounter 78510-2.59 [id number] 40 09/21 [place] [facility] Outpatient Encounter 95845-9.59 [id number] 57 09/21 [place] [facility] Outpatient Encounter 07972-8.59 [id number] 09/23 [place] [facility] PSYTX W PT 60 MINUTES 90313-9.59 [id number] Diagnos is: ICD-10- CM F43.12 Post-tr aumatic stress disorde r, chronic GAYLE OBANDO L 09/30 [facility] Outpatient Encounter 02308-9.59 [id number] 10/01 [place] [facility] Outpatient Encounter 54864-8.59 [id number] 10/01 [place] [facility] PH1 ASSMT&MGMT NQHP 5-10 70903-2.59 [id number] Diagnos is: ICD-10- CM Z71.89 Other specifi ed prenatal genetic counselor WHIT Lemons 10/01 [place] [facility] EMERGENCY DEPT VISIT MOD MDM 53011-4.59 [id number] Diagnos is: ICD-10- CM R07.9 Chest pain, unspeci fied DIANE WATSON L 10/04 [place] [facility] Outpatient Encounter [id number] [id number] 10/05 [place] [facility] Outpatient Encounter 34886-8.59 [id number] 10/09 [place] [facility] EDU&TRN PT SELF-MGMT NQHP 1 94704-5.59 [id number] Diagnos is: ICD-10- CM G89.29 Other chronic pain ELISEO DIAMOND M 10/12 [place] [facility] OFFICE O/P EST MOD 30 MIN 63347-4.59 [id number] 02 Diagnos is: ICD-10- CM G89.29 Other chronic pain GIULIA KILPATRICK MMY R 10/12 [place] [facility] Outpatient Encounter 16771-0.59 [id number] 10/12 [place] [facility] INJECT SACROILIAC JOINT 78508-4.59 [id number] 23 Diagnos is: ICD-10- CM 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, lumbosa cr region NIKA DURBIN AR 10/12 [place] [facility] Outpatient Encounter 86586-4.59 [id number] DEENA HAYNES RLY M 10/12 [place] [facility] Outpatient Encounter 85170-5.59 [id number] 10/12 [place] [facility] Outpatient Encounter 94631-9.59 [id number] 97 10/12 [place] [facility] Outpatient Encounter 22558-8.59 [id number] 10/12 [place] [facility] PSYTX W PT 30 MINUTES 04952-8.59 [id number] 10 Diagnos is: ICD-10- CM F43.12 Post-tr aumatic stress disorde r, chronic GAYLE OBANDO L 10/14 [facility] Outpatient Encounter 90152-4.59 [id number] 10/16 [place] [facility] ACUP WO ESTIM 1ST 15 MIN 85350-2.59 [id number] Diagnos is: ICD-10- CM G89.29 Other chronic pain ELISEO DIAMOND 10/19 [place] [facility] ACUP WO ESTIM 1ST 15 MIN 15573-2.59 [id number] Diagnos is: ICD-10- CM G89.29 Other chronic pain ELISEO DIAMOND 10/26 [place] [facility] Outpatient Encounter [id number] [id number] 10/28 [facility] ACUP W/O ESTIM EA ADD 15 49301-9.59 [id number] Diagnos is: ICD-10- CM G89.29 Other chronic pain ELISEO DIAMOND 11/02 [place] [facility] OFFICE O/P NEW MOD 45 MIN 07714-4.59 [id number] Diagnos is: ICD-10- CM G43.119 Migrain e with aura, intract able, without status migrain osus SAMANTA,REGSHELBI A M 11/10 [place] [facility] PSYTX W PT 45 MINUTES 87114-7.59 [id number] 88 Diagnos is: ICD-10- CM F43.12 Post-tr aumatic stress disorde r, chronic KINDER,GAYLE NIFER L 11/11 [facility] NQHP OL DIG ASSMT&MGMT 5-10 59476-7.59 [id number] 29 Diagnos is: ICD-10- CM G43.119 Migrain e with aura, intract able, without status migrain osus SARAH,AND REW L 11/11 [place] SYNCH AUDIO-VIDE [place] 40 89813-2.59 [id number] Diagnos is: ICD-10- CM F43.12 Post-tr aumatic stress disorde r, chronic CARMEN MUNOZ 11/11 [place] [facility] ACUP 1/ WO ESTIM 1ST 15 MIN 95102-7.59 [id number] Diagnos is: ICD-10- CM G89.29 Other chronic pain ELISEO DIAMOND Luis 11/13 [place] [facility] PSYTX W PT 60 MINUTES 47061-7.59 [id number] Diagnos is: ICD-10- CM F43.12 Post-tr aumatic stress disorde r, chronic GAYLE OBANDO 11/25 [facility] CASE MGMT-[facility]AL [facility] LIT 32563-0.59 [id number] Diagnos is: ICD-10- CM Z01.20 Encount er for dental exam and cleanin g w/o abnorma l finding s MISSAEL,Get MERCEDES R 11/30 [place] [facility] Outpatient Encounter 26787-2.59 [id number] 11/30 [place] [facility] ACUP 1/ WO ESTIM 1ST 15 MIN 99771-0.59 [id number] Diagnos is: ICD-10- CM M54.2 Cervica lgia ELISEO DIAMOND Luis 11/30 [place] [facility] ACUP W/O ESTIM EA ADD 15 [id number] Diagnos is: ICD-10- CM G89.29 Other chronic pain ELISEO DIAMOND Luis 12/07 [place] [facility] Outpatient Encounter [id number] 12/11 [place] [facility] Outpatient Encounter [id number] 12/14 [place] [facility] ACUP 1/> W/O ESTIM EA ADD 15 [id number] Diagnos is: ICD-10- CM G89.29 Other chronic pain ELISEO DIAMOND 12/14 [place] [facility] PSYTX W PT 30 MINUTES [id number] Diagnos is: ICD-10- CM F43.12 Post-tr aumatic stress disorde r, chronic GAYLE OBANDO L 12/16 [facility] Outpatient Encounter [id number] 12/16 [place] [facility] EMERGENCY DEPT VISIT [facility] [id number] Diagnos is: ICD-10- CM R50.9 Fever, unspeci fied GENNY BAEZNELLIE [facility] 12/16 [place] [facility] Procedures Combined list of: 1) Procedures from [facility] facilities going back up to thelast 18 months, not all VA non-surgical procedures are included; 2) All procedures from the Department of Defense facilities. Procedure Procedure Type Code Date Perfomer Comments Sourc e FITTING OF SPECTACLES, EXCEP T FOR APHAKIA; MONOFOCAL 11/11/2000 [place] LARYNGOSCOPY, FLEXIBLE; DIAGNOSTIC 04/18/2000 [facility] INTRAVENOUS INFUSION, THERAPY/DIAGNOSIS, ADMINISTERED PHYSICIAN/UNDER DIRECT SUPERVISION, PHYSICIAN; EA ADDITIONAL HOUR, UP TO EIGHT (8) HOURS (LIST SEPARATELY ADDITION TO CODE, PRIMARY PROCEDURE) 02/13/2000 [facility]D PSYCHIATRIC DIAGNOSTIC INTERVIEW EXAMINATION 01/18/1999 [facility] NONINVASIVE EAR OR PULSE OXIMETRY FOR OXYGEN SATURATION; SINGLE DETERMINATION 03/06/2003 [facility] INJECTION, KETOROLAC TROMETHAMINE, PER 15 MG 11/28/2002 D oD INDIVIDUAL PSYCHOTHERAPY, INSIGHT ORIENTED, BEHAVIOR MODIFYING AND/OR SUPPORTIVE, IN AN OFFICE OR OUTPATIENT FACILITY, APPROXIMATELY 45 TO 50 MINUTES [id number] WITH THE PATIENT 09/22/2002 [facility] THERAPEUTIC, PROPHYLACTIC OR DIAGNOSTIC INJECTION (SPECIFY MATERIAL INJECTED); SUBCUTANEOUS OR INTRAMUSCULAR 08/05/2002 DoD CRUTCHES UNDERARM, WOOD, ADJUSTABLE OR FIXED, PAIR, WITH PADS, TIPS AND HANDGRIPS 04/23/2002 [facility] INDIVIDUAL PSYCHOTHERAPY, INSIGHT ORIENTED, BEHAVIOR MODIFYING AND/OR SUPPORTIVE, IN AN OFFICE OR OUTPATIENT FACILITY, APPROXIMATELY 75 TO 80 MINUTES [id number] WITH THE PATIENT 04/23/2002 Do[facility] ANALYSIS OF CLINICAL DATA STORED IN COMPUTERS (EG, ECGS, BLOOD PRESSURES, HEMATOLOGIC DATA) 04/22/2002 Do[facility] DEMONSTRATION AND/OR EVALUATION OF PATIENT UTILIZATION OF AN AEROSOL GENERATOR, NEBULIZER, METERED DOSE INHALER OR IPPB DEVICE 04/22/2002 DoD SKIN TEST; TUBERCULOSIS, INTRADERMAL 04/17/2002 DoD THERAPEUTIC OR DIAGNOSTIC INJECTION (SPECIFY MATERIAL INJECTED); INTRAVENOUS 04/15/2002 [facility] D PSYCHIATRIC DIAGNOSTIC INTERVIEW EXAMINATION 03/25/2002 [facility] INDIVIDUAL PSYCHOTHERAPY, INSIGHT ORIENTED, BEHAVIOR MODIFYING AND/OR SUPPORTIVE, IN AN OFFICE OR OUTPATIENT FACILITY, APPROXIMATELY 75 TO 80 MINUTES [id number] WITH THE PATIENT 03/18/2002 Do[facility] INDIVIDUAL PSYCHOTHERAPY, INSIGHT ORIENTED, BEHAVIOR MODIFYING AND/OR SUPPORTIVE, IN AN OFFICE OR OUTPATIENT FACILITY, APPROXIMATELY 75 TO 80 MINUTES [id number] WITH THE PATIENT 02/11/2002 [facility] EDUCATIONAL SUPPLIES, SUCH A S BOOKS, TAPES, AND PAMPHLETS, FOR THE PATIENT'S EDUCATION AT COST TO PHYSICIAN OR OTHER QUALIFIED HEALTH OIL MIXER 02/09/2002 DoD INDIVIDUAL PSYCHOTHERAPY, INSIGHT ORIENTED, BEHAVIOR MODIFYING AND/OR SUPPORTIVE, IN AN OFFICE OR OUTPATIENT FACILITY, APPROXIMATELY 75 TO 80 MINUTES [id number] WITH THE PATIENT 02/09/2002 DoD INDIVIDUAL PSYCHOTHERAPY, INSIGHT ORIENTED, BEHAVIOR MODIFYING AND/OR SUPPORTIVE, IN AN OFFICE OR OUTPATIENT FACILITY, APPROXIMATELY 45 TO 50 MINUTES [id number] WITH THE PATIENT 01/13/2002 DoD SUPP &MATERIAL (EXCEPT SPECTACLE),PROVID,[facility]/OTH QUALIFIED HEALTH OIL MIXER OVER &ABOVE THOSE USUALLY INCLD W THE OFFICE VISIT/OTH SER RENDERED (LIST DRUG,TRAYS,SUPP,OR MATERIAL PROVID) 12/19/2001 DoD INDIVIDUAL PSYCHOTHERAPY, INSIGHT ORIENTED, BEHAVIOR MODIFYING AND/OR SUPPORTIVE, IN AN OFFICE OR OUTPATIENT FACILITY, APPROXIMATELY 75 TO 80 MINUTES [id number] WITH THE PATIENT 12/01/2001 [facility] INDIVIDUAL PSYCHOTHERAPY, INSIGHT ORIENTED, BEHAVIOR MODIFYING AND/OR SUPPORTIVE, IN AN OFFICE OR OUTPATIENT FACILITY, APPROXIMATELY 75 TO 80 MINUTES [id number] WITH THE PATIENT 09/22/2001 [facility] HANDLING AND/OR CONVEYANCE O F SPECIMEN FOR TRANSFER FROM THE OFFICE TO A LABORATORY 08/25/2001 [facility] STERILE SALINE IRRIGATION SOLUTION, 1000 ML 08/04/2001 [facility] INDIVIDUAL PSYCHOTHERAPY, INSIGHT ORIENTED, BEHAVIOR MODIFYING AND/OR SUPPORTIVE, IN AN OFFICE OR OUTPATIENT FACILITY, APPROXIMATELY 45 TO 50 MINUTES [id number] WITH THE PATIENT 07/31/2001 [facility] Social History Combined list of available smoking, tobacco, and other social history from Department of Defense and Veterans Affairs facilities. Social History Type Response Date Comment Sourc e Tobacco smoking status NHIS VA-TOBACCO QUIT 5 TO < 15 YRS 10/16/2023 [facility] History of tobacco use RI-TOBACCO FORMER USER 10/16/2023 [facility] History of tobacco use RI-TOBACCO FORMER USER 11/05/2022 [facility] History of tobacco use RI-TOBACCO FORMER USER 09/15/2021 [facility] This section is an empty social history section. [facility] Plan of Care List of future care activities from Department of Veterans Affairs facilities. Additional future care activities may be listed in the Assessment and Plan section. Date/Time Care Activity Care Activity Detail Facili ty 12/21/2024 AMBULATORY - REHAB MEDICINE AMBULATORY - REHAB MEDICINE [facility]
--- OUTSIDE RECORDS SUMMARY | 2024-12-18 12:06 | XMS_ITS | Referral Summary ---
Author Organization [employer] ([place], [place], [place], [place]) Address [address] [place] [address] Care Team Providers Care Lasting Room Supervisor Name Role Phone Unavailable Primary Care Provider [...]
--- OUTSIDE RECORDS SUMMARY | 2024-12-18 12:06 | XMS_ITS | Encounter Summary ---
[facility] Organization [facility] Address [address] [place] [address] Care Team Providers Care Server Engineer Name Role Phone CarrilloInessa Baljit Primary Care Provider [phone] Reason for Visit * Reason Comments Med Refill Encounter Details Date Type Department Care Team (Late st Contact Info) Description 11/28/2020 Refill [facility] [address] [place] [address] Gasper Pierre MD [address] [place] [address] Type 2 diabetes mellitus without complication, without long-term current use of insulin Social History Tobacco Use Types Packs/Day Years Used Date Smoking Tobacco: Former Cigarettes 1 20 0 01/02/1998 - 01/02/2018 Smokeless Tobacco: Never Alcohol Use Standard Drinks/Week Comments Yes 0 (1 standard drink = 0.6 oz pur e alcohol) OCCASIONAL Comments No Sex and Gender Information Value Date Recorded Sex Assigned at Not on file Legal Sex Female 1:24 PM EDT Gender Identity Not on file Sexual Orientation Not on file Occupation Industry Job Start Date Job End Date Not on file Not on file Not on file Not on file documented as of this encounter Plan of Treatment Not on file documented as of this encounter Visit Diagnoses Diagnosis Type 2 diabetes mellitus without complication, without long-term current use of insulin documented in this encounter Additional Health Concerns Infection Onset Date Last Indicated Resolved Time COVID (rule out) 05/10/2021 05/10/2021 05/17/2021 9:08 PM EST documented as of this encounter Care Teams Server Engineer Relationship Specialty Start Date End Date Inessa Carrillo [address] [place], [place] [phone] (Work) PCP - General Nurse Practitioner 09/07/22 documented as of this encounter
--- OUTSIDE RECORDS SUMMARY | 2024-12-18 12:06 | XMS_ITS ---
Author Organization [facility] Address [address] [place] [id number] Care Team Providers Care Director Of Occupational Therapy Name Role Phone Inessa Carrillo Primary Care Provider [phone] Chronic Migraine Status:Disenrolled (Closed) Start date:06/17/2023 Enrollment date:06/20/2023 Enrollment reason:New start at End date:12/03/2024 Close reason:Transfer of Care Linked medications:Atogepant (Discontinued), Ubrogepant (Discontinued) Linked problems:Migraine without aura and without status migrainosus, not intractable (Active) Overview Disenrolled 12/03/24. Pt now seeing Dr. Jf Fairchild at [facility] and she has taken over meds Internal- QULIPTA & UBRELVY. CCA on file. [place] enrolled. Prefers [employer] messages. Continued Care and Services Coordination
--- OUTSIDE RECORDS SUMMARY | 2024-12-18 12:07 | XMS_ITS | Clinical Summary ---
Author Organization [facility] Address [address] [place] [address] Care Team Providers Care Medicine Man Name Role Phone Gasper Pierre MD Primary Care Provider [phone] Allergies Active Allergy Reactions Criticality Noted Date Comments Atorvastatin Other - please document in the comment field Low 07/07/2023 cramp Amoxicillin-Pot Clavulanate Rash Low 07/07/2023 Codeine Itching Medium 02/19/2012 Pt confirmed that [place] is OK for her take Codeine Hives [...] mg) by mouth. 4 Active HYDROcodone-dandy taminophen ([place]) 7.5-325 MG tablet Take by mouth. 3 [...] (11/08/2020): Added automatically from request for surgery [id number] Paresthesia 07/22/2020 Vitamin B12 deficiency 07/22/2020 Hypercholesterolemia [...] Skin Test (TB Skin Test) 10/13/2003,08/06/19 04,07/13/2003 Pfizer-BioPlanitax COVID-19 Vac cine (Purple Cap) 12+ 01/10/2021 [...] 2014 Sigmoidoscopy 2014 [facility]-Colorectal Cancer Screening 2014 [id number] Vaccine (3 - Pfizer risk series) 02/07/2021 01/10/2021, 12/19/2020 [facility]-DTaP,Tdap,and Td Vaccines (2 - Tdap) 10/10/2021 10/11/2011 [facility]-Depression Screening 12/27/2021 12/27/2020 [facility]-Diabetes: Hemoglobin A1C 02/05/202209/2021, 03/27/2021, 11/29/2020, Additional history exists [facility]-Zoster Vaccines (2 of 2) 03/01/2022 01/04/2022 [facility]-Breast Cancer Screening 12/18/202412/04, 12/18/2022, 10/23/2021, Additional history exists [facility]-Influenza Vaccine (#1) 2025 01/31/2022 [facility]-Hepatitis C Screening Completed 10/30/2019 [facility]-Pneumococcal Vaccine: 50+ Years Completed 01/04/2022 [facility]-Hepatitis B Vaccines Completed 12/07/2022, 07/0 10/2022 [facility]-Obesity Intervention Completed 01/30/2024 HPV Vaccines Aged [...] Insurance ANTHEM ANTHEM ANTHEM ANTHEM Care Teams Medicine Man Relationship Specialty Start Date End Date Gasper Pierre MD [address] [place] [address] PCP - General Family Medicine 11/08/20
--- OUTSIDE RECORDS SUMMARY | 2024-12-18 12:08 | XMS_ITS | Encounter Summary ---
Author Organization [employer] ([place], [place], [place], [place]) Address [address] [place] [address] Care Team Providers Care Refrigeration Mechanic Name Role Phone Unavailable Primary Care Provider Unavailabl e Encounter Details Date Type Department Care Team (Late st Contact Info) Description 02/02/[address] [facility] Family Medicine [address] [place] [address] ProviderMaksim MD [address] [place] [address] Social History Tobacco Use Types [...] CC1: Tracie Barragan M.D. Electronically signed by [facility], [facility] Conversion Property Management Intern Cerner at 08/23/2022 9:12 AM CDT documented in this encounter Plan of Treatment Not on file documented as of this encounter Visit Diagnoses Not on filedocumented in this encounter
--- OUTSIDE RECORDS SUMMARY | 2024-12-18 12:08 | XMS_ITS | Clinical Summary ---
Author Organization [employer] ([place], [place], [place], [place]) Address [address] [place] [address] Care Team Providers Care Network Systems Consultant Name Role Phone Unavailable Primary Care [...]
--- OUTSIDE RECORDS SUMMARY | 2024-12-18 12:09 | XMS_ITS | Clinical Summary ---
Author Organization [facility] Address [address] [place] [address] Care Team Providers Care Fws Faculty Assistant Name Role Phone Inessa Carrillo Primary Care Provider [phone] Allergies Active Allergy Reactions Criticality Noted Date Comments Atorvastatin Other (See Comments) Low 07/07/2023 cramp Amoxicillin-Pot Clavulanate Rash Low 02/10/2021 Clavulanic Acid Unknown - High Severity 05/18/2022 Codeine Itching 12/31/2017 Propoxyphene Itching 01/02/2018 Lisinopril Cough 12/09/2019 Oxycodone-Acetaminophen Itching 12/31/2017 Started in tongue and spread to face, wanted to rip tongue out per patient Silver Other (See Comments) Low 12/07/2020 Skin burn Medications aspirin 81 MG EC tablet Take 1 tablet by mouth Daily. 30 tablet 01/01/20 18 Active hydrOXYzine pamoate (VISTARIL) 25 MG capsule Daily As Needed. 07/29/19 20 Active Blood Glucose Monitoring Suppl (TRUE METRIX METER) w/Device kit 11/02/19 20 Active busPIRone (BUSPAR) 10 MG tablet Take 2 tablets by mouth 2 (two) times a day. Active sertraline (ZOLOFT) 100 MG tablet Take 1 tablet by mouth Daily. Active metFORMIN (GLUCOPHAGE) 1000 MG tabletIndications: Type 2 diabetes mellitus without complication, without long-term current use of insulin Take 1 tablet by mouth 2 (Two) Times a Day. 180 tablet 1 08/09/19 22 Active traZODone (DESYREL) 100 MG tabletIndications: Primary insomnia Take 1 tablet by mouth every night at bedtime. 90 tablet 1 08/09/19 22 Active levothyroxine (SYNTHROID, LEVOTHROID) 125 MCG tabletIndications: Acquired hypothyroidism Take 1 tablet by mouth Daily. 90 tablet 1 08/09/19 22 Active albuterol sulfate HFA 108 (90 Base) MCG/ACT inhaler Inhale 2 puffs Daily. 06/11/19 24 Active montelukast (SINGULAIR) 10 MG tablet Take 1 tablet by mouth Every Night. 06/11/19 24 Active celecoxib (CeleBREX) 100 MG capsule Take 1 capsule by mouth 2 (Two) Times a Day. 02/09/20 23 Active fluticasone (VERAMYST) 27.5 MCG/SPRAY nasal spray Administer 2 sprays into the nostril(s) as directed by provider Daily. Active fexofenadine (KELLEE) 180 MG tablet Take 1 tablet by mouth Daily. Active lidocaine (LIDODERM) 5 % 1 patch. 11/26/19 24 Active oxybutynin XL (DITROPAN-XL) 10 MG 24 hr tablet Take 1 tablet by mouth Every Night. 11/30/19 24 Active rosuvastatin (CRESTOR) 10 MG tablet Take 1 tablet by mouth Daily. 01/10/20 24 Active cloNIDine (CATAPRES) 0.1 MG tablet Take 1 tablet by mouth Every Night. 09/09/19 25 Active cyclobenzaprine (FLEXERIL) 10 MG tablet Take 1 tablet by mouth 3 (Three) Times a Day As Needed for Muscle Spasms. Active gabapentin (NEURONTIN) 600 MG tablet Take 1 tablet by mouth 2 (Two) Times a Day. Active primidone (MYSOLINE) 50 MG tabletIndications: Essential tremor Take 4 tablets twice a day 720 tablet 3 09/12/19 25 Active butalbital-acetami nophen-caffeine (FIORICET, ESGIC) 50-325-40 MG per tabletIndications: Migraine without aura and without status migrainosus, not intractable Take 1 tablet at onset of severe migraine, may repeat once in 6 hours. Max 2 a day. Max 10 a month. 10 tablet 09/12/19 25 Active ubrogepant (Ubrelvy) 100 MG tablet Take 1 tablet by mouth 1 Time As Needed at onset of headache. May repeat x 1 in 2 hours if needed (Max: 2 tabs/ 24 hrs) 16 tablet 11 5 8:51 AM EDT 05/19/19 25 025 Discontin ued(*Ther apy completed ) Atogepant (Qulipta) 60 MG tablet Take 1 tablet by mouth Daily for migraine prevention. 30 tablet 11 5 8:51 AM EDT 05/19/19 25 025 Discontin ued(*Ther apy completed ) Active Problems Problem Noted Date Diagnosed Date Nonepileptic episode 01/17/2024 Overview (01/17/2024): 07/2023 and no more Adrenal adenoma 06/16/2023 Closed head injury 06/16/2023 Fall 06/16/2023 Major depressive disorder 06/16/2023 Panic disorder 06/16/2023 Posttraumatic stress disorder 06/16/2023 Gastroesophageal reflux disease 11/21/2020 Vitamin B12 deficiency 07/22/2020 Paresthesia 07/22/2020 Hypercholesterolemia 05/23/2020 Type 2 diabetes mellitus wit hout complication, without long-term current use of insulin 12/04/2019 Essential hypertension 12/04/2019 Migraine without aura and wi thout status migrainosus, not intractable 11/27/2019 Hemiplegic migraine without status migrainosus, not intractable 11/27/2019 Essential tremor 10/30/2019 CORNEL (obstructive sleep apnea) 10/30/2019 Overview (10/30/2019): Cannot tolerate the masks Anxiety 10/30/2019 Recurrent major depressive disorder, in full rem ission 10/30/2019 Chronic midline low back pain without sciatica 0 10/30/2019 Palpitations 01/02/2018 Acquired hypothyroidism 01/02/2018 Resolved Problems Problem Noted Date Diagnosed Date Resolved Date Eye twitch 07/22/2020 08/30/2020 Atypical chest pain 07/06/2020 07/13/19 21 Chest pain 01/02/2018 05/23/2020 Immunizations Immunization Administration Dates Next Due COVID-19 (PFIZER) Purple Cap Monovalent 08/16/20 21 MMR 10/15/2003 Family History Medical History Relation Name Comments No Known Problems Brother 1 Cancer Father Dad Diabetes Father Dad Heart disease Father Dad Heart disease Maternal Aunt Sis No Known Problems Maternal Grandfather No Known Problems Maternal Grandmother Diabetes Maternal Uncle Sis Heart disease Maternal Uncle Sis Arthritis Mother Mom Atrial fibrillation Mother Mom Depression Mother Mom Hyperlipidemia Mother Mom Hypertension Mother Mom Osteoarthritis Mother Mom No Known Problems Paternal Grandfather No Known Problems Paternal Grandmother Anxiety disorder Sister 2 Sis Depression Sister 3 Sister Anxiety disorder Sister 4 Sis Depression Sister 5 Sister Breast cancer Neg Hx Ovarian cancer Neg Hx Relation Name Status Comments Brother 1 Alive Father Dad Maternal Aunt Sis Alive Maternal Grandfather Maternal Grandmother Maternal Uncle Sis Mother Mom Alive Paternal Grandfather Paternal Grandmother Sister 1 1 Alive low K Sister 2 Sis Sister 3 Sister Sister 4 Sis Alive Sister 5 Sister Alive Social History Tobacco Use Types Packs/Day Years Used Date Smoking Tobacco: Former Cigarettes 1 20 0 01/02/1998 - 01/02/2018 Passive Smoke Exposure: Past Smokeless Tobacco: Never Tobacco Cessation:Counseling Given: No Alcohol Use Standard Drinks/Week Comments Not Currently [...] file Not on file Not on file Last Filed Vital Signs Vital Sign Reading Time Taken Comments Blood Pressure 120/80 09/11/2024 3:29 PM EDT Pulse 81 09/11/2024 3:29 PM EDT Temperature 37.1 C (98.7 F) 09/11/2021 3:45 PM EDT Respiratory Rate 18 09/11/2021 3:45 PM EDT Oxygen Saturation 98% 09/11/2024 3:29 PM EDT Inhaled Oxygen Concentration - - Weight 119 kg (262 lb) 09/11/2024 3:29 PM EDT Height 182.9 cm (6') 09/11/2024 3:29 PM EDT Body Mass Index 35.53 09/11/2024 3:29 PM EDT Plan of Treatment Health Maintenance Due Date Last Done Comments Annual Gynecologic Pelvic an d Breast Exam 1969 DIABETIC EYE EXAM 09/25/1979 DIABETIC FOOT EXAM 09/25/1979 URINE MICROALBUMIN-CREATININ E RATIO (uACR) 09/25/1979 TDAP/TD VACCINES (1 - Tdap) 1988 COLOGUARD 2014 COLON CANCER SCREENING 5 YEA R SIGMOIDOSCOPY [address] COLONOGRAPHY 2014 FECAL OCCULT BLOOD TEST 2014 FIT Testing (1 year) 2014 ANNUAL PHYSICAL 01/02/2018 LUNG CANCER SCREENING 09/25/2019 12/31/2017 HEMOGLOBIN A1C 02/07/2022 08/08/2021, 03/07, 11/29/2020, Additional history exists LIPID PANEL 03/27/2022 03/27/2021, 05/06, 02/05/2020, Additional history exists COVID-19 Vaccine (2023-2 5 season) 2024 01/10/2021, 12/19/2020 MAMMOGRAM 12/18/2024 12/18/2022, 10/05, 04/08/2020, Additional history exists INFLUENZA VACCINE 02/03/2025 01/31/2022 COLONOSCOPY 09/05/2030 09/05/2020 COLORECTAL CANCER SCREENING 09/05/2030 HEPATITIS C SCREENING Completed 10/30/2019, 020 Pneumococcal Vaccine 50+ Completed 01/04/2022 ZOSTER VACCINE Completed 01/04/2022, 09/15/2021 Hepatitis B Completed 12/07/2022, 11/08/2022 Goals Goal Patient Goal Type Associated Problems Recent Progress Patient-Stated? Author Specialty Pharmacy General Goal General On track( 025 11:39 AM EDT) Chris Henning, PharmD Note: Decrease frequency, severity and duration of migraine attacks. On Average, Reduce: Frequency of migraines to 5 per month. Symptom severity by 50% within 1 hour of taking acute therapy. Duration of migraines to several hours. Baseline Values/Notes on Enrollment Frequency: 10 migraine days/month Symptom Severity: Severe Duration: 8-24 hours Date of Reassessment Notes on Progress Toward Above Goals 04/23/24 Overall, she is doing well on Qulipta for migraine prevention and Ubrelvy as needed for treatment. Pt denies any missed doses or side effects. She experienced about 6-7 migraine days this past month, which is still an improvement for her. This number is slightly evlevated due to increased levels of stress and due to changes in the weather. She will take the Ubrelvy at the first sign of the break through headaches and this medication is still effective. She did not have any questions or concerns with her migraine mediations and I recommend she continue on Qulipta and Ubrelvy. The patient did have some medicine changes by her Psychiatrist and PCP. On the quality of life improvement scale, patient appreciates our pharmacy services and feels our help has improved their quality of life. The patient gave a score of 8. On track. 10/08/24 Overall, she is doing well on Qulipta for migraine prevention and Ubrelvy as needed for treatment. Pt denies any missed doses or side effects. She experienced about 4 severe migraine days this past month, which is still an improvement from her baseline. These severe migraines were caused by changes in the weather. She will take the Ubrelvy at the first sign of the break through headaches and she still finds the medication to be effective. She did not have any questions or concerns with her migraine mediations and I recommend she continue on the current drug regimen. I advised her to call the office if she notices an increase in the frequency or severity of migrianes. Pt acknowledged. On the quality of life improvement scale, patient appreciates our pharmacy services and feels our help has improved their quality of life. The patient gave a score of 9. On track. Procedures Procedure Name Priority Date/Time Associated Diagnosis Comments MAMMO SCREENING DIGITAL TOMOSYNTHESIS BILATERAL W CAD Routine 12/18/2022 3:17 PM EDT Visit for screening mammogram HEMOGLOBIN A1C Routine 08/08/2021 4:41 PM EDT Type 2 diabetes mellitus without complication, without long-term current use of insulin LIPID PANEL Routine 03/27/2021 10:43 AM EST Hypercholesteremia SCANNED - COLONOSCOPY 09/05/2020 HEPATITIS C ANTIBODY Routine 10/30/2019 9:47 AM EDT Encounter for hepatitis C screening test for low risk patient CT ANGIOGRAM CHEST W WO CONTRAST STAT 12/31/2017 4:20 PM EDT from Last 3 Months or Most Recently Relevant to Health Maintenance Results * Mammo Screening Digital Tomosynthesis Bilateral With CAD (12/18/2022 3:17 PM EDT) Anatomical Region Laterality Modality Breast N/A Mammography 12/23/2022 5:44 PM EDT Impressions 12/23/2022 5:45 PM EDT Negative bilateral mammogram. RECOMMENDATION: Continue annual screening mammography. BI-RADS CATEGORY 1, NEGATIVE. CAD was utilized. The standard false-negative rate of mammography is between 10% and 25%. Complex patterns or increased breast density will markedly elevate the false-negative rate of mammography. A letter, in lay terminology, with the results of this exam will be mailed to the patient. This report was finalized on 12/23/2022 5:[address] Jaida Norman MD. Narrative 12/23/2022 5:45 PM EDT DIGITAL SCREENING MAMMOGRAM WITH TOMOSYNTHESIS HISTORY: Screening Mammography. Low dose full field digital breast tomosynthesis imaging was performed with 2D and 3D acquisitions consisting of bilateral CC and MLO views. Examination is compared to prior examination dating back to 12/20/2017. Examination is read in conjunction with computer aided detection. FINDINGS: The breast tissue is almost entirely fatty. No suspicious masses, microcalcifications or areas of architectural distortion are present. Inessa Carrillo [facility] MAMMOGRAPHY ORDERABLES Fin al Result * (ABNORMAL) Hemoglobin A1c (08/08/2021 4:41 PM EDT) Hemoglobin A1C 5.9(H) 4.8 - 5.6 % [facility] Comment: Prediabetes: 5.7 - 6.4 Diabetes: >6.4 Glycemic control for adults with diabetes: <7.0 Blood 08/08/2021 4:41 PM EDT 08/08/2021 Narrative [facility] (AMBULATORY) - 08/10/2021 5:07 AM EDT Performed at: 01 - [facility] [address] [facility], [place], [place] [id number] Printing Table Worker: Dashawn Moser PhD, Phone: [phone] Patient Fasting: N us Gasper Pierre MD LAB BLOOD ORDERABLES Final Resu lt [facility] (AMBULATORY) [address] [place] [address], [facility] [address] [place] [address], * (ABNORMAL) Lipid Panel (03/27/2021 10:43 AM EST) [facility] Total Cholesterol 130 0 - 200 mg/dL [facility] Comment: Cholesterol Reference Ranges (U.S. Department of Health and Human Services ATP III Classifications) Desirable <200 mg/dL Borderline High 200-239 mg/dL High Risk >240 mg/dL Triglyceride Reference Ranges (U.S. Department of Health and Human Services ATP III Classifications) Normal <150 mg/dL Borderline High 150-199 mg/dL High 200-499 mg/dL Very High >500 mg/dL HDL Reference Ranges (U.S. Department of Health and Human Services ATP III Classifcations) Low <40 mg/dl (major risk factor for CHD) High >60 mg/dl ('negative' risk factor for CHD) LDL Reference Ranges (U.S. Department of Health and Human Services ATP III Classifcations) Optimal <100 mg/dL Near Optimal 100-129 mg/dL Borderline High 130-159 mg/dL High 160-189 mg/dL Very High >189 mg/dL Triglycerides 125 0 - 150 mg/dL [facility] HDL Cholesterol 37(L) 40 - 60 mg/dL [facility] VLDL Cholesterol Carmelo 22 5 - 40 mg/dL [facility] LDL Chol Calc (NIH) 71 0 - 100 mg/dL [facility] Blood 03/27/2021 10:4 3 AM EST 03/27/2021 Narrative [facility] (AMBULATORY) - 03/29/2021 3:07 AM EST Performed at: [address] [id number] Printing Table Worker: Alejandro Prince MD, Phone: [phone] Patient Fasting: Y Gasper Pierre MD LAB BLOOD ORDERABLES Final Resu lt Performing Organization Address City/[facility]/ZIP Co de Phone Number [facility] [address] [place] [address], [facility] [address] [place] [address], * SCANNED - COLONOSCOPY (09/05/2020) us Gasper Pierre MD CHART REVIEW TABS Final Resu lt * Hepatitis C Antibody (10/30/2019 9:47 AM EDT) [facility] Hep C Virus Ab <0.1 0.0 - 0.9 s/co ratio [facility] Comment: Negative: < 0.8 Indeterminate: 0.8 - 0.9 Positive: > 0.9 The CDC recommends that a positive HCV antibody result be followed up with a HCV Nucleic Acid Amplification test (138539). Blood 10/30/2019 9:47 AM EDT 10/30/2019 Comment:BLOOD Narrative [facility] (AMBULATORY) - 10/31/2019 9:09 AM EDT Performed at: 02 - [facility] [id number] Printing Table Worker: Dashawn Moser PhD, Phone: [phone] us Gasper Pierre MD LAB BLOOD ORDERABLES Final Resu lt Performing Organization Address City/[facility]/ZIP Co de Phone Number [facility] [address] [place] [address], [facility] [address] [place] [address], * CT Angiogram Chest With & Without Contrast (12/31/2017 4:20 PM EDT) Anatomical Region Laterality Modality Chest, Vascular N/A Computed Tomogra phy 12/31/2017 4:32 PM EDT Impressions 01/01/2018 8:13 AM EDT No evidence for pulmonary embolism. E: 12/31/2017 This report was finalized on 01/01/2018 8:13 AM by Farooq Packer. 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 TECHNIQUE: Axial CT data of the chest were obtained helically per PE protocol following IV contrast administration. Multiplanar reformatted images and 2D reconstructions (MIPs) were generated and reviewed. Computer aided detection was utilized in the interpretation. The radiation dose reduction device was turned on for each scan per the ALARA (As Low as Reasonably Achievable) protocol. COMPARISONS: None. FINDINGS: No acute pulmonary embolism is seen . Central airways are patent without endobronchial lesion or debris. Heart size is within normal limits. No suspicious lymph node. The lungs are clear without focal airspace disease, pleural effusion or pneumothorax; scattered evidence of healed granulomatous disease noted in the left lung periphery, left hilum and prevascular bere station. Chest wall soft tissues are normal. Incidental imaging of the upper abdomen is remarkable for a 1.7 cm adrenal adenoma. No aggressive bone lesion. 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 TECHNIQUE: Axial CT data of the chest were obtained helically per PE protocol following IV contrast administration. Multiplanar reformatted images and 2D reconstructions (MIPs) were generated and reviewed. Computer aided detection was utilized in the interpretation. The radiation dose reduction device was turned on for each scan per the ALARA (As Low as Reasonably Achievable) protocol. COMPARISONS: None. FINDINGS: No acute pulmonary embolism is seen . Central airways are patent without endobronchial lesion or debris. Heart size is within normal limits. No suspicious lymph node. The lungs are clear without focal airspace disease, pleural effusion or pneumothorax; scattered evidence of healed granulomatous disease noted in the left lung periphery, left hilum and prevascular bere station. Chest wall soft tissues are normal. Incidental imaging of the upper abdomen is remarkable for a 1.7 cm adrenal adenoma. No aggressive bone lesion. IMPRESSION: No evidence for pulmonary embolism. E: 12/31/2017 This report was finalized on 01/01/2018 8:13 AM by Farooq Packer. Danish Fuller PA-C IMG CT ORDERABLES Final Result from Last 3 Months or Most Recently Relevant to Health Maintenance Insurance Advance Directives * CPR (Attempt to Resuscitate) (Latest Code Status on File) Date Activated Date Inactivated Comments 07/06/2020 3:42 PM 07/07/2020 7:23 PM Question Answer Comments Code Status (Patient has no pulse and is not breathing): CPR (Attempt to Resuscitate) Medical Interventions (Patie nt has pulse or is breathing): Full Level Of Support Discussed With: Patient Care Teams Fws Faculty Assistant Relationship Specialty Start Date End Date Inessa Carrillo [facility] [place] [address] [place] [address] [phone] (Work) PCP - General Nurse Practitioner 09/07/22
--- OUTSIDE RECORDS SUMMARY | 2024-12-18 12:10 | XMS_ITS | Encounter Summary ---
Author Organization [facility] Address [address] [place] [address] Care Team Providers Care Glue Drier Operator Name Role Phone GerardoLorenzopraful Smiley Primary Care Provider [phone] Reason for Visit * Reason Onset Date Comments Med Refill 03/19/2021 Encounter Details Date Type Department Care Team (Late st Contact Info) Description 03/19/2021 Refill [facility] [address] [place] [address] Gasper Pierre MD [address] [place] [address] Hypercholesteremia; Primary insomnia; Acquired hypothyroidism Social History Tobacco Use Types Packs/Day Years [...] as of this encounter Visit Diagnoses Diagnosis Hypercholesteremia Pure hypercholesterolemia Primary insomnia Persistent disorder of initiating or maintaining sleep Acquired hypothyroidism Unspecified hypothyroidism documented in this encounter Additional Health Concerns Infection Onset Date Last Indicated Resolved Time COVID (rule out) 05/10/2021 05/10/2021 05/17/2021 9:08 PM EST documented as of this encounter Care Teams Glue Drier Operator Relationship Specialty Start Date End Date Inessa Carrillo [address] [place] [address] [phone] (Work) PCP - General Nurse Practitioner 09/07/22 documented as of this encounter
--- OUTSIDE RECORDS SUMMARY | 2024-12-18 12:10 | XMS_ITS | Encounter Summary ---
Author Organization [facility] Address [address] [place] [address] Care Team Providers Care Consumer Loan Manager Name Role Phone Gasper Pierre MD Primary Care Provider [phone] Reason for Referral * Consultation (Routine) - Closed Specialty Diagnoses / Procedures Referred By Nader whelan Referred To Contact Neurology Diagnoses Tremor, essential So Cabrera APRN [email or web address] [address] Phone: tel: fax: Referral ID Status Reason Start Date Expiration Date V isits Requested Visits Authorized [id number] Closed Specialty Services Required 06/18/2023 12/17/2024 1 1 Encounter Details Date Type Department Care Team (Late st Contact Info) Description 06/18/2023 Community Orders Community [facility] [address] [place] [address] So Cabrera APRN [address] [place] [address] Tremor, essential (Primary Dx) Social History Tobacco [...] documented as of this encounter Care Teams Consumer Loan Manager Relationship Specialty Start Date End Date Gasper Pierre MD [address] [place] [address] PCP - General Family Medicine 11/08/20 documented as of this encounter
== END 2024-12-16 23:59 | disposition home or self-care (01) ==
LOC: LAB.DROPOF 12-18 11:57
PROVIDERS: PCP Nurse Practitioner Family; Visit Provider Student in an Organized Health Care Education/Training Program
DX: J06.9 Acute upper respiratory infection, unspecified (principal)
CPT/HCPCS: 87631